=== PATIENT | female | born 1985 | race Caucasian/White ===

== ENCOUNTER 2023-10-02 17:31 | Emergency (ER) | payer MEDICAID, SELFPAY ==
[2023-10-02 17:33] VITALS: BP 154/98; PULSE 67; RESP 16; TEMP 37; O2SAT 97; BMI 32.3
--- NOTE | 2023-10-02 17:41 | W.ED.CHESTPA ---
Documented by User: Romero Masters DO 10/03/23 17:04 HPI - Chest Pain General: Chief Complaint: Chest Pain Stated Complaint: CHEST PAIN Time Seen by Provider: 10/02/23 17:40 Source: patient Mode of arrival: EMS History of Present Illness: 38-year-old female presents emergency room with complaint of chest pain has been going on for last 2 months. She denies any fever sweats chills denies productive cough no nausea vomiting diarrhea. She has some complaints of GI discomfort and reflux also has complaints of swelling which she states is on her entire right side. She previously had some bradycardia she was seen by primary care doctor in [facility] and they had changed some medications. MD complaint: chest pain Quality: shooting Associated symptoms: Deny abdominal pain, diaphoresis, dyspnea, fever(s), leg edema, nausea, palpitations, sense of impending doom, syncope, vomiting or other Review of Systems Const: Denies: fever(s), chills or diaphoresis Card: Denies: chest pain, palpitations or syncope Resp: Denies: dyspnea GI: Denies: abdominal pain, nausea or vomiting : Denies: dysuria, urinary frequency or urinary urgency Musc: Denies: neck pain or back pain Skin/Breast: Denies: rash Physical Exam Const: COMMON NORMALS: no acute distress GENERAL APPEARANCE: cooperative and comfortable ORIENTATION/CONSCIOUSNESS: Yes awake, Yes oriented to person, Yes oriented to place and Yes oriented to time HENMT: COMMON NORMALS: normocephalic, atraumatic and hearing grossly normal bilaterally HEAD & SCALP: normocephalic and atraumatic Resp: COMMON NORMALS: normal respiratory effort, No retractions, No use of accessory muscles and clear to auscultation bilaterally AUSCULTATION: clear to auscultation bilaterally Cardio: COMMON NORMALS: regular rate, regular rhythm and No murmurs present (Cardio) RATE: regular rate RHYTHM: regular rhythm GI: COMMON NORMALS: Soft to palpation and No hepatosplenomegaly present AUSCULTATION: Yes normoactive bowel sounds PALPATION: Yes Soft to palpation, No Tenderness to palpation present (GI), No Guarding due to palpation present (GI) and Yes No hepatosplenomegaly present Extremity: COMMON NORMALS: normal to inspection, capillary refill normal, no clubbing, cyanosis or edema, no calf tenderness and no pedal edema Neuro: SENSORIUM/ORIENTATION: Yes oriented to person, Yes oriented to place and Yes oriented to time Skin: COMMON NORMALS: no rashes or lesions noted GENERAL SKIN EXAM: no rashes or lesions noted Course Vital Signs: Vital signs: Vital Signs Temperature 98.6 F 10/02/23 17:33 Pulse Rate 65 10/02/23 21:09 Respiratory Rate 16 10/02/23 21:09 Blood Pressure 142/85 10/02/23 21:09 Pulse Oximetry 98 10/02/23 21:09 MDM - Chest Pain Medical Decision Making Care signed out to Dr. Mcgarry at change of shift. See final notes for diagnosis and disposition. 38-year-old female checked out to me at shift change by Dr. Zuniga. This lady has multiple complaints, including head injury from a fall, chest discomfort, right foot injury, and bradycardia. Heart rates on the monitor been 45-65. Her EKG shows sinus bradycardia with a rate of 45, normal axis, normal intervals, and no acute ST wave changes. Her chest x-ray is negative. Head CT and foot x-ray are also negative. CBC and BMP are normal. Troponin is nondetectable. This appears to be mainly symptomatic bradycardia. She will be ordered a Holter as an outpatient, refer to cardiology for follow-up. Lab Data 10/02/23 17:59 10/02/23 17:59 Radiology Impressions Chest X-Ray 10/02/23 17:51 IMPRESSION: No acute findings. Foot X-Ray 10/02/23 19:08 IMPRESSION: No acute osseous abnormalities. Head CT 10/02/23 19:08 IMPRESSION: No acute intracranial abnormality. Laboratory Results WBC 5.02 10^3/uL (3.29-11.43) 10/02/23 17:59 RBC 4.11 10^6/uL (3.85-5.65) 10/02/23 17:59 Hgb 12.90 g/dL (11.27-16.99) 10/02/23 17:59 Hct 38.1 % (36-47) 10/02/23 17:59 MCV 92.7 fl (85-98) 10/02/23 17:59 MCH 31.4 pg (27-33) 10/02/23 17:59 MCHC 33.9 g/dL (30-55) 10/02/23 17:59 RDW 11.6 % (12.1-15.1) L 10/02/23 17:59 Plt Count 206 10^3/cmm (157-399) 10/02/23 17:59 MPV 9.3 fL (7.4-10.4) 10/02/23 17:59 Neut % (Auto) 37.8 % 10/02/23 17:59 Lymph % (Auto) 50.0 % 10/02/23 17:59 Mccormick % (Auto) 7.2 % 10/02/23 17:59 Eos % (Auto) 3.6 % 10/02/23 17:59 Baso % (Auto) 1.2 % 10/02/23 17:59 Neut # (Auto) 1.90 10^3/uL (1.8-7.7) 10/02/23 17:59 Lymph # (Auto) 2.5 10^3/uL (0.8-4.8) 10/02/23 17:59 Mccormick # (Auto) 0.4 10^3/uL (0.2-0.9) 10/02/23 17:59 Eos # (Auto) 0.2 10^3/uL (0.0-0.8) 10/02/23 17:59 Baso # (Auto) 0.1 10^3/uL (0.0-0.1) 10/02/23 17:59 Nucleated RBC % (auto) 0 % 10/02/23 17:59 Nucleated RBCs # 0.0 /100WBC 10/02/23 17:59 Sodium 141 mmol/L (136-145) 10/02/23 17:59 Potassium 3.8 mmol/L (3.5-5.1) 10/02/23 17:59 Chloride 107 mmol/L (98-107) 10/02/23 17:59 Carbon Dioxide 22 mmol/L (22-29) 10/02/23 17:59 Anion Gap 15.8 (5-19) 10/02/23 17:59 BUN 9 mg/dL (6-20) 10/02/23 17:59 Creatinine 0.7 mg/dL (0.5-0.9) 10/02/23 17:59 GFR Calculation 94.2 mL/min (90-130) 10/02/23 17:59 Glucose 92 mg/dL (65-115) 10/02/23 17:59 Calculated Osmolality 290 mOsm/kg (285-295) 10/02/23 17:59 Calcium 9.4 mg/dL (8.5-10.5) 10/02/23 17:59 Total Bilirubin 0.2 mg/dL (0.15-1.2) 10/02/23 17:59 AST 19 U/L (0-32) 10/02/23 17:59 ALT 23 U/L (0-33) 10/02/23 17:59 Alkaline Phosphatase 71 U/L (35-105) 10/02/23 17:59 Troponin T Baseline < 6 ng/L (0-10) 10/02/23 17:59 Troponin T 120 Minute 6.34 ng/L (0-10) 10/02/23 20:55 Delta Troponin T 0.00483 ABS# (0-10) 10/02/23 20:55 Total Protein 6.4 g/dL (6.6-8.7) L 10/02/23 17:59 Albumin 4.1 g/dL (3.5-5.2) 10/02/23 17:59 Globulin 2.3 g/dL (1.3-4.6) 10/02/23 17:59 All radiology interpretation(s) finalized by discharge Discharge Plan Discharge Patient Disposition: Home Clinical Impression: Bradycardia, sinus Condition: Stable Discharge Orders: Discharge ED (Routine); Ordered 10/02/23 Ordered By: Pj Mcgarry Referrals: Jose Luis Phillips FNP [Primary Care Provider] - 1-3 days Fatuma Reyna MD [Physician] - 7-10 days Patient Instructions: Bradycardia (ED), Opioid Safety, Pain Management Activity Restrictions/Additional Instructions: Order has been placed as an outpatient for you to obtain a Holter monitor and wear it. You will get a call from case management regarding this. Referral is also been placed to cardiology for follow-up. See your doctor next week. Return for frequent episodes of syncope or passing out, worsening chest pain, other concerning symptoms. Coding Level of Care Code ED Embedded Software Architect for Chg Fwd Documented by User: Pj Mcgarry, DO 10/03/23 21:02 HPI - Chest Pain General: Chief Complaint: Chest Pain Stated Complaint: CHEST PAIN Time Seen by Provider: 10/02/23 17:40 Course Vital Signs: Vital signs: Vital Signs Temperature 98.6 F 10/02/23 17:33 Pulse Rate 65 10/02/23 21:09 Respiratory Rate 16 10/02/23 21:09 Blood Pressure 142/85 10/02/23 21:09 Pulse Oximetry 98 10/02/23 21:09 MDM - Chest Pain Medical Decision Making 38-year-old female checked out to me at shift change by Dr. Zuniga. This lady has multiple complaints, including head injury from a fall, chest discomfort, right foot injury, and bradycardia. Heart rates on the monitor been 45-65. Her EKG shows sinus bradycardia with a rate of 45, normal axis, normal intervals, and no acute ST wave changes. Her chest x-ray is negative. Head CT and foot x-ray are also negative. CBC and BMP are normal. Troponin is nondetectable. This appears to be mainly symptomatic bradycardia. She will be ordered a Holter as an outpatient, refer to cardiology for follow-up. Lab Data 10/02/23 17:59 10/02/23 17:59 Radiology Impressions Chest X-Ray 10/02/23 17:51 IMPRESSION: No acute findings. Foot X-Ray 10/02/23 19:08 IMPRESSION: No acute osseous abnormalities. Head CT 10/02/23 19:08 IMPRESSION: No acute intracranial abnormality. Laboratory Results WBC 5.02 10^3/uL (3.29-11.43) 10/02/23 17:59 RBC 4.11 10^6/uL (3.85-5.65) 10/02/23 17:59 Hgb 12.90 g/dL (11.27-16.99) 10/02/23 17:59 Hct 38.1 % (36-47) 10/02/23 17:59 MCV 92.7 fl (85-98) 10/02/23 17:59 MCH 31.4 pg (27-33) 10/02/23 17:59 MCHC 33.9 g/dL (30-55) 10/02/23 17:59 RDW 11.6 % (12.1-15.1) L 10/02/23 17:59 Plt Count 206 10^3/cmm (157-399) 10/02/23 17:59 MPV 9.3 fL (7.4-10.4) 10/02/23 17:59 Neut % (Auto) 37.8 % 10/02/23 17:59 Lymph % (Auto) 50.0 % 10/02/23 17:59 Mccormick % (Auto) 7.2 % 10/02/23 17:59 Eos % (Auto) 3.6 % 10/02/23 17:59 Baso % (Auto) 1.2 % 10/02/23 17:59 Neut # (Auto) 1.90 10^3/uL (1.8-7.7) 10/02/23 17:59 Lymph # (Auto) 2.5 10^3/uL (0.8-4.8) 10/02/23 17:59 Mccormick # (Auto) 0.4 10^3/uL (0.2-0.9) 10/02/23 17:59 Eos # (Auto) 0.2 10^3/uL (0.0-0.8) 10/02/23 17:59 Baso # (Auto) 0.1 10^3/uL (0.0-0.1) 10/02/23 17:59 Nucleated RBC % (auto) 0 % 10/02/23 17:59 Nucleated RBCs # 0.0 /100WBC 10/02/23 17:59 Sodium 141 mmol/L (136-145) 10/02/23 17:59 Potassium 3.8 mmol/L (3.5-5.1) 10/02/23 17:59 Chloride 107 mmol/L (98-107) 10/02/23 17:59 Carbon Dioxide 22 mmol/L (22-29) 10/02/23 17:59 Anion Gap 15.8 (5-19) 10/02/23 17:59 BUN 9 mg/dL (6-20) 10/02/23 17:59 Creatinine 0.7 mg/dL (0.5-0.9) 10/02/23 17:59 GFR Calculation 94.2 mL/min (90-130) 10/02/23 17:59 Glucose 92 mg/dL (65-115) 10/02/23 17:59 Calculated Osmolality 290 mOsm/kg (285-295) 10/02/23 17:59 Calcium 9.4 mg/dL (8.5-10.5) 10/02/23 17:59 Total Bilirubin 0.2 mg/dL (0.15-1.2) 10/02/23 17:59 AST 19 U/L (0-32) 10/02/23 17:59 ALT 23 U/L (0-33) 10/02/23 17:59 Alkaline Phosphatase 71 U/L (35-105) 10/02/23 17:59 Troponin T Baseline < 6 ng/L (0-10) 10/02/23 17:59 Troponin T 120 Minute 6.34 ng/L (0-10) 10/02/23 20:55 Delta Troponin T 0.27099 ABS# (0-10) 10/02/23 20:55 Total Protein 6.4 g/dL (6.6-8.7) L 10/02/23 17:59 Albumin 4.1 g/dL (3.5-5.2) 10/02/23 17:59 Globulin 2.3 g/dL (1.3-4.6) 10/02/23 17:59 Discharge Plan Discharge Patient Disposition: Home Clinical Impression: Bradycardia, sinus Condition: Stable Discharge Orders: Discharge ED (Routine); Ordered 10/02/23 Ordered By: Pj Mcgarry Referrals: Jose Luis Phillips FNP [Primary Care Provider] - 1-3 days Fatuma Reyna MD [Physician] - 7-10 days Patient Instructions: Bradycardia (ED), Opioid Safety, Pain Management Activity Restrictions/Additional Instructions: Order has been placed as an outpatient for you to obtain a Holter monitor and wear it. You will get a call from case management regarding this. Referral is also been placed to cardiology for follow-up. See your doctor next week. Return for frequent episodes of syncope or passing out, worsening chest pain, other concerning symptoms. Coding Level of Care Code ED Embedded Software Architect for Brittnee Bowman
--- NOTE | 2023-10-02 17:51 | XRR_ITS ---
PROCEDURE INFORMATION: Exam: XR Chest Exam date and time: 10/02/2023 6:10 PM Age: 38 years old Clinical indication: Dyspnea; Additional info: Dyspnea/cough TECHNIQUE: Imaging protocol: Radiologic exam of the chest. Views: 1 view. COMPARISON: No relevant prior studies available. FINDINGS: Lungs: Unremarkable. No consolidation. Pleural spaces: Unremarkable. No pleural effusion. No pneumothorax. Heart/Mediastinum: Unremarkable. No cardiomegaly. Bones/joints: Unremarkable. XR/XR chest 1V portable [id number] IMPRESSION: No acute findings.
--- NOTE | 2023-10-02 18:08 | ECG_ITS ---
[facility] Test Date: 2023-10-02 Pat Name: Sarah Dooley Department: Room: Gender: Female Strand Galvanizer: : 1985 Requested By: Romero Stafford Order Number: [id number] Anastacia MD: Gustavo Coto M.D. Measurements Intervals [place] Rate: 45 P: 37 NV: 129 QRS: 50 QRSD: 101 T: 20 QT: 443 QTc: 386 Interpretive Statements SINUS BRADYCARDIA NONSPECIFIC T-WAVE ABNORMALITY No previous ECG available for comparison Electronically Signed On 10-03-2023 8:35:26 SCIENCE TEACHER by Gustavo Coto M.D. [id number]
[2023-10-02 18:17] LABS: Basophils # 0.1 10^3/uL (0.0-0.1); Basophils % 1.2 %; Eosinophils # 0.2 10^3/uL (0.0-0.8); Eosinophils % 3.6 %; Hematocrit 38.1 % (36-47); Lymphocytes # 2.5 10^3/uL (0.8-4.8); Mean Corpuscular HGB Conc 33.9 g/dL (30-55); Mean Corpuscular Hemoglobin 31.4 pg (27-33); Mean Corpuscular Volume 92.7 fl (85-98); Mean Platelet Volume 9.3 fL (7.4-10.4); Monocytes # 0.4 10^3/uL (0.2-0.9); Monocytes % 7.2 %; Neutrophils % 37.8 %; Nucleated Red Blood Cells % 0 %; Platelet Count 206 10^3/cmm (157-399); Red Blood Count 4.11 10^6/uL (3.85-5.65); Red Cell Distribution Width 11.6 % (12.1-15.1); White Blood Count 5.02 10^3/uL (3.29-11.43)
[2023-10-02 18:41] LABS: Troponin(5th) Baseline < 6 ng/L (0-10)
[2023-10-02 18:55] LABS: Alanine Aminotransferase 23 U/L (0-33); Albumin Level 4.1 g/dL (3.5-5.2); Alkaline Phosphatase 71 U/L (35-105); Anion Gap 15.8 (5-19); Aspartate Amino Transferase 19 U/L (0-32); Blood Urea Nitrogen 9 mg/dL (6-20); Calcium 9.4 mg/dL (8.5-10.5); Carbon Dioxide 22 mmol/L (22-29); Chloride 107 mmol/L (98-107); Globulin 2.3 g/dL (1.3-4.6); Glomerular Filtration Rate 94.2 mL/min (90-130); Glucose 92 mg/dL (65-115); Osmolality Calculated 290 mOsm/kg (285-295); Potassium 3.8 mmol/L (3.5-5.1); Sodium 141 mmol/L (136-145); Total Bilirubin 0.2 mg/dL (0.15-1.2); Total Protein 6.4 g/dL (6.6-8.7)
--- NOTE | 2023-10-02 19:08 | CTR_ITS ---
PROCEDURE INFORMATION: Exam: CT Head Without Contrast Exam date and time: 10/02/2023 7:19 PM Age: 38 years old Clinical indication: Injury or trauma; Blunt trauma (contusions or hematomas); Patient HX: Fall with headstrike; Additional info: Fall head injury TECHNIQUE: Imaging protocol: Computed tomography of the head without contrast. Radiation optimization: All CT scans at this facility use at least one of these dose optimization techniques: automated exposure control; mA and/or kV adjustment per patient size (includes targeted exams where dose is matched to clinical indication); or iterative reconstruction. REPORTING DATA: Count of CT and Cardiac NM exams in prior 12 months: This patient has received 0 known CTs and 0 known cardiac nuclear medicine studies in the 12 months prior to the current study. COMPARISON: No relevant prior studies available. RADIATION DOSE METRICS: Total DLP (mGy-cm): 1014.68 FINDINGS: Brain: Normal. No hemorrhage. Unremarkable white matter. No mass effect. Cerebral ventricles: No ventriculomegaly. Paranasal sinuses: Visualized sinuses are unremarkable. No fluid levels. Mastoid air cells: Visualized mastoid air cells are well aerated. Bones/joints: Unremarkable. No acute fracture. Soft tissues: Unremarkable. CT/CT head wo con* [id number] IMPRESSION: No acute intracranial abnormality.
--- NOTE | 2023-10-02 19:08 | XRR_ITS ---
PROCEDURE INFORMATION: Exam: XR Right Foot Exam date and time: 10/02/2023 7:18 PM Age: 38 years old Clinical indication: Injury or trauma; Blunt trauma; Right; Patient HX: Fall. C/O foot pain. ; Additional info: Foot injury TECHNIQUE: Imaging protocol: Radiologic exam of the right foot. Views: 3 or more views. COMPARISON: No relevant prior studies available. FINDINGS: Bones/joints: Normal. Soft tissues: Soft tissue swelling along the lateral aspect of the forefoot/midfoot. No radiopaque foreign body. XR/XR foot RT min 3V* [id number] IMPRESSION: No acute osseous abnormalities.
[2023-10-02 21:05] VITALS: BP 142/85
[2023-10-02] MEDS: LORazepam 1 mg Tablet PO (21:05)
[2023-10-02] MEDS: cloNIDine 0.1 mg Tablet PO (21:05)
[2023-10-02 21:09] VITALS: BP 142/85; PULSE 65; RESP 16; O2SAT 98
[2023-10-02 21:41] LABS: Troponin 5 2HR 6.34 ng/L (0-10); Troponin 5 2HR Delta 0.34001 ABS# (0-10)
--- NOTE | 2023-10-04 08:13 | DCPLANNER ---
Message was sent to heart care services for referral on 10/04/23 at 0813. Clinic to contact patient.
== END 2023-10-02 21:11 | disposition home or self-care (01) ==
PROVIDERS: Family Medicine; Emergency Provider Emergency Medicine; PCP Nurse Practitioner Family
DX: R00.1 Bradycardia, unspecified (principal); M79.671 Pain in right foot; R51.9 Headache, unspecified; W19.XXXA Unspecified fall, initial encounter; R07.9 Chest pain, unspecified
CPT/HCPCS: 36415; 70450; 71045; 73630; 80053; 84484; 85025; 93005; 99285

== ENCOUNTER → 2023-11-01 15:25 | Outpatient (BNVA) | payer MEDICAID, SELFPAY | PROVIDERS: PCP Nurse Practitioner Family; Visit Provider Internal Medicine Cardiovascular Disease | DX: R07.9 Chest pain, unspecified (principal) | CPT/HCPCS: 36415; 80048; 83880; 93005 ==

== ENCOUNTER 2023-12-31 19:40 | Emergency (ER) | payer MEDICAID, SELFPAY ==
[2023-12-31 19:41] VITALS: BP 158/92; PULSE 87; RESP 22; TEMP 37.3; O2SAT 96; BMI 36.3
--- NOTE | 2023-12-31 19:41 | XRR_ITS ---
PROCEDURE INFORMATION: Exam: XR Chest Exam date and time: 12/31/2023 7:46 PM Age: 38 years old Clinical indication: Chest pressure; Patient HX: C/O chest pain; Additional info: Cp TECHNIQUE: Imaging protocol: Radiologic exam of the chest. Views: 1 view. COMPARISON: CR XR chest 1V portable [id number] 10/02/2023 6:10 PM FINDINGS: Lungs: Unremarkable. No consolidation. Pleural spaces: Unremarkable. No pleural effusion. No pneumothorax. Heart/Mediastinum: Unremarkable. No cardiomegaly. Bones/joints: Unremarkable. XR/XR chest 1V portable [id number] IMPRESSION: No acute findings.
--- NOTE | 2023-12-31 19:41 | ECG_ITS ---
[facility] Test Date: 2023-12-31 Pat Name: Sarah Dooley Department: Room: Gender: Female Eyeglass Frames Inspector: : 1985 Requested By: Catina Smith Order Number: [id number] Anastacia MD: Gustavo Coto M.D. Measurements Intervals [place] Rate: 86 P: 37 [place]: 149 QRS: 22 QRSD: 95 T: 2 QT: 358 QTc: 430 Interpretive Statements SINUS RHYTHM MODERATE T-WAVE ABNORMALITY, CONSIDER ANTERIOR ISCHEMIA [-0.1+ mV T-WAVE IN V3/V4] Compared to ECG 11/01/2023 15:32:17 Possible ischemia now present T-wave abnormality still present Electronically Signed On 01-01-2024 8:49:40 EPIC AMBULATORY ANALYSTS by Gustavo Coot M.D. [email or web address] [email or web address]/[email or web address]/[id number]
[2023-12-31 19:55] VITALS: BP 158/92; PULSE 113; RESP 16; O2SAT 95
--- NOTE | 2023-12-31 19:55 | ED_ITS ---
HPI - Chest Pain 2 General: Chief Complaint: Chest Pain Stated Complaint: chest discomfort Time Seen by Provider: 12/31/23 19:41 Source: patient and EMS Mode of arrival: EMS Limitations: no limitations History of Present Illness: 38-year-old female who states she had re cently moved down here from [place] to help take care of her mom states she has been under a lot of stress states that she has had intermittent chest pains she has for like she could not breathe at times she has seen cardiology here diagnosed with high blood pressure started losartan states she is scheduled to have an echo states that tonight roughly 3 to 4 hours ago she started having sharp pains in the center of her chest along with some dyspnea states she has had panic attacks states this does not really feel similar. She does admit again to being under a lot of stress Associated symptoms: Deny abdominal pain, dyspnea, fever(s), nausea or vomiting Review of Systems 2 Const: Denies: fever(s), chills, body aches or change in appetite ENMT: Denies: throat pain or dental pain Card: Reports: chest pain Resp: Denies: dyspnea GI: Denies: abdominal pain, nausea, vomiting or diarrhea Musc: Denies: neck pain or back pain Skin/Breast: Denies: rash Neuro: Denies: headache(s) Physical Exam 2 Const: COMMON NORMALS: no acute distress, patient oriented x3 and healthy appearing HENMT: COMMON NORMALS: normocephalic and atraumatic HEAD & SCALP: n ormocephalic and atraumatic Neck/C-Spine: COMMON NORMALS: full ROM and supple Chest: COMMONS NORMALS: normal inspection of the chest Resp: COMMON NORMALS: normal respiratory effort and clear to auscultation bilaterally AUSCULTATION: clear to auscultation bilaterally Cardio: COMMON NORMALS: regular rate, regular rhythm and No murmurs present (Cardio) RATE: regular rate RHYTHM: regular rhythm Extremity: COMMON NORMALS: normal to inspection and full ROM Neuro: COMMON NORMALS: patient oriented x3, moves all extremities and no focal motor deficits Psych: COMMON NORMALS: mental status grossly normal, Normal thought process present and cooperative THOUGHT PROCESS: Normal thought process present Skin: COMMON NORMALS: no rashes or lesions noted and no wounds GENERAL SKIN EXAM: no rashes or lesions noted Course 2 Vital Signs: Vital signs: Vital Signs Temperature 99.1 F 03/08/24 19:41 Pulse Rate 86 12/31/23 20:16 Respiratory Rate 15 12/31/23 20:16 Blood Pressure 122/87 12/31/23 20:16 Pulse Oximetry 95 12/31/23 20:16 Oxygen Delivery Me thod Room Air 12/31/23 20:16 MDM - Chest Pain Medical Decision Making Patient presents for chest pains atypical in nature patient's troponin EKG x-ray and D-dimer are all normal she is stable for discharge she is follow-up with PCP and return if worsening she understands agrees to plan. Medical Records I reviewed the patient's medical records. Lab Data I reviewed the patient's lab results. 12/31/23 20:15 12/31/23 20:15 Radiology Impressions Chest X-Ray 12/31/23 19:41 IMPRESSION: No acute findings. Laboratory Results WBC 8.20 10^3/uL (3.29-11.43) 12/31/23 20:15 RBC 4.73 10^6/uL (3.85-5.65) 12/31/23 20:15 Hgb 14.40 g/dL (11.27-16.99) 12/31/23 20:15 Hct 42.5 % (36-47) 12/31/23 20:15 MCV 89.9 fl (85-98) 12/31/23 20:15 MCH 30.4 pg (27-33) 12/31/23 20:15 MCHC 33.9 g/dL (30-55) 12/31/23 20:15 RDW 12.0 % (12.1-15.1) L 12/31/23 20:15 Plt Count 281 10^3/cmm (157-399) 12/31/23 20:15 MPV 8.8 fL (7.4-10.4) 12/31/23 20:15 Neut % (Auto) 61.8 % 12/31/23 20:15 Lymph % (Auto) 31.5 % 12/31/23 20:15 [place] % (Auto) 5.2 % 12/31/23 20:15 Eos % (Auto) 0.7 % 12/31/23 20:15 Baso % (Auto) 0.7 % 12/31/23 20:15 Neut # (Auto) 5.06 10^3/uL (1.8-7.7) 12/31/23 20:15 Lymph # (Auto) 2.6 10^3/uL (0.8-4.8) 12/31/23 20:15 [place] # (Auto) 0.4 10^3/uL (0.2-0.9) 12/31/23 20:15 Eos # (Auto) 0.1 10^3/uL (0.0-0.8) 12/31/23 20:15 Baso # (Auto) 0.1 10^3/uL (0.0-0.1) 12/31/23 20:15 Nucleated RBC % (auto) 0 % 12/31/23 20:15 Nucleated RBCs # 0.0 /100WBC 12/31/23 20:15 D-Dimer <= 0.27 ug/mLFEU (0-0.59) 12/31/23 20:15 Sodium 140 mmol/L (136-145) 12/31/23 20:15 Potassium 4.3 mmol/L (3.5-5.1) 12/31/23 20:15 Chloride 104 mmol/L (98-107) 12/31/23 20:15 Carbon Dioxide 26 mmol/L (22-29) 12/31/23 20:15 Anion Gap 14.3 (5-19) 12/31/23 20:15 BUN 11 mg/dL (6-20) 12/31/23 20:15 Creatinine 0.7 mg/dL (0.5-0.9) 12/31/23 20:15 GFR Calculation 94.2 mL/min (90-130) 12/31/23 20:15 Glucose 98 mg/dL (65-115) 12/31/23 20:15 Calculated Osmolality 289 mOsm/kg (285-295) 12/31/23 20:15 Calcium 9.4 mg/dL (8.5-10.5) 12/31/23 20:15 Total Bilirubin 0.5 mg/dL (0.15-1.2) 12/31/23 20:15 AST 19 U/L (0-32) 12/31/23 20:15 ALT 27 U/L (0-33) 12/31/23 20:15 Alkaline Phosphatase 72 U/L (35-105) 12/31/23 20:15 Troponin T Baseline < 6 ng/L (0-10) 12/31/23 20:15 Total Protein 7.5 g/dL (6.6-8.7) 12/31/23 20:15 Albumin 4.6 g/dL (3.5-5.2) 12/31/23 20:15 Globulin 2.9 g/dL (1.3-4.6) 12/31/23 20:15 HCG, Qual Negative (Negative) 12/31/23 20:15 All radiology interpretation(s) finalized by discharge EKG Data EKG 1: I personally reviewed and interpreted this EKG as follows: EKG interpretation date: 12/31/23 EKG interpretation time: 19:51 Interpretation: nsr hr [address] or t wave abnormalities qrs 95 qtc 402 Discharge Plan Discharge Patient Disposition: Home Clinical Impression: Chest pain Condition: Stable Prescriptions: No Action losartan 25 mg tablet 25 mg PO DAILY Qty: 30 3RF Discharge Orders: Discharge ED (Routine); Ordered 12/31/23 Ordered By: Catina Smith Referrals: Deven Saiin MD [Physician] - 1-3 days Jose Luis Phillips FNP [Primary Care Provider] - Discharge Diet: Advance as tolerated Discharge Activity: Resume usual activity Patient Instructions: Chest Pain (ED) Coding Level of Care Code ED Case Management Manager for Brittnee Bowman
[2023-12-31 20:16] VITALS: BP 122/87; PULSE 86; RESP 15; O2SAT 95
[2023-12-31 20:27] LABS: Basophils # 0.1 10^3/uL (0.0-0.1); Basophils % 0.7 %; Eosinophils # 0.1 10^3/uL (0.0-0.8); Eosinophils % 0.7 %; Hematocrit 42.5 % (36-47); Lymphocytes # 2.6 10^3/uL (0.8-4.8); Lymphocytes % 31.5 %; Mean Corpuscular HGB Conc 33.9 g/dL (30-55); Mean Corpuscular Hemoglobin 30.4 pg (27-33); Mean Corpuscular Volume 89.9 fl (85-98); Mean Platelet Volume 8.8 fL (7.4-10.4); Monocytes # 0.4 10^3/uL (0.2-0.9); Monocytes % 5.2 %; Neutrophils # 5.06 10^3/uL (1.8-7.7); Neutrophils % 61.8 %; Nucleated Red Blood Cells % 0 %; Platelet Count 281 10^3/cmm (157-399); Red Blood Count 4.73 10^6/uL (3.85-5.65)
[2023-12-31] MEDS: LORazepam 2 mg/mL INJ 10 mL MDV 1 MG IVP (20:36)
[2023-12-31 20:44] LABS: HCG, Serum Qual Negative (Negative)
[2023-12-31 20:46] LABS: D Dimer <= 0.27 ug/mLFEU (0-0.59)
[2023-12-31 20:53] LABS: Alanine Aminotransferase 27 U/L (0-33); Albumin Level 4.6 g/dL (3.5-5.2); Alkaline Phosphatase 72 U/L (35-105); Anion Gap 14.3 (5-19); Aspartate Amino Transferase 19 U/L (0-32); Blood Urea Nitrogen 11 mg/dL (6-20); Calcium 9.4 mg/dL (8.5-10.5); Carbon Dioxide 26 mmol/L (22-29); Chloride 104 mmol/L (98-107); Creatinine Clr Calc Pharmacy 132.7202; Globulin 2.9 g/dL (1.3-4.6); Glomerular Filtration Rate 94.2 mL/min (90-130); Glucose 98 mg/dL (65-115); Osmolality Calculated 289 mOsm/kg (285-295); Potassium 4.3 mmol/L (3.5-5.1); Sodium 140 mmol/L (136-145); Total Bilirubin 0.5 mg/dL (0.15-1.2); Total Protein 7.5 g/dL (6.6-8.7)
[2023-12-31 20:54] LABS: Troponin(5th) Baseline < 6 ng/L (0-10)
[2023-12-31 21:21] VITALS: BP 128/74; PULSE 87; RESP 17; O2SAT 96
[2023-12-31 21:38] VITALS: BP 128/74; PULSE 87; RESP 17; TEMP 37.3; O2SAT 96
== END 2023-12-31 21:48 | disposition home or self-care (01) ==
PROVIDERS: Emergency Provider Emergency Medicine; PCP Nurse Practitioner Family
DX: R07.9 Chest pain, unspecified (principal)
CPT/HCPCS: 36415; 71045; 80053; 84484; 84703; 85025; 85378; 93005; 96374; 99285; J2060

== ENCOUNTER 2024-01-29 20:28 | Emergency (ER) | payer MEDICAID, SELFPAY ==
[2024-01-29 20:32] VITALS: BP 167/114; PULSE 90; RESP 18; TEMP 36.7; O2SAT 95; BMI 37.1
[2024-01-29 20:52] LABS: Basophils # 0.1 10^3/uL (0.0-0.1); Basophils % 0.8 %; Eosinophils # 0.1 10^3/uL (0.0-0.8); Eosinophils % 1.1 %; Hematocrit 42.5 % (36-47); Lymphocytes % 35.5 %; Mean Corpuscular HGB Conc 34.4 g/dL (30-55); Mean Corpuscular Hemoglobin 30.3 pg (27-33); Mean Corpuscular Volume 88.2 fl (85-98); Mean Platelet Volume 8.6 fL (7.4-10.4); Monocytes # 0.5 10^3/uL (0.2-0.9); Monocytes % 6.1 %; Neutrophils # 4.64 10^3/uL (1.8-7.7); Nucleated Red Blood Cells % 0 %; Platelet Count 280 10^3/cmm (157-399); Red Blood Count 4.82 10^6/uL (3.85-5.65)
[2024-01-29 20:58] LABS: HCG Qualitative Urine. Negative (Negative)
[2024-01-29] MEDS: ketorolac 30 mg/mL INJ IVP (20:58)
[2024-01-29] MEDS: metoclopramide 5 mg/mL SDV 2 mL 10 MG IVP (20:59)
[2024-01-29] MEDS: diphenhydrAMINE 50 mg/mL SDV 1mL IVP (21:01)
[2024-01-29 21:02] VITALS: BP 145/82; PULSE 73; RESP 18; O2SAT 95
[2024-01-29 21:10] LABS: Add Urine Microscopic? YES; Bilirubin Urine Neg (Negative); Blood Urine 2+ (Negative); Glucose Urine UA Norm (Normal); Ketones Urine Negative (Negative); Leukocyte Esterase Urine Negative (Negative); Nitrate Urine Negative (Negative); Protein Urine Neg (Negative); Urine Appearance Clear (CLEAR); Urine Color Yellow (Yellow); Urobilinogen Urine Neg (Negative); pH Urine 5 (5-7)
[2024-01-29 21:11] LABS: Amorphous Sediment Urine TRACE /hpf; Bacteria Urine TRACE /hpf; Mucus Urine 1+ /hpf; RBC Urine 0-4 /hpf (0-2); WBC Urine 0-4 /hpf (0-5)
--- NOTE | 2024-01-29 21:16 | CTR_ITS ---
PROCEDURE INFORMATION: Exam: CT Abdomen And Pelvis With Contrast Exam date and time: 01/29/2024 9:42 PM Age: 38 years old Clinical indication: Abdominal pain; Localized; Right; Prior surgery; Surgery date: 6+ months; Surgery type: Gb. Appy; Patient HX: C/O RT sided abd pain; Additional info: Flank and low abd pain TECHNIQUE: Imaging protocol: Computed tomography of the abdomen and pelvis with contrast. Radiation optimization: All CT scans at this facility use at least one of these dose optimization techniques: automated exposure control; mA and/or kV adjustment per patient size (includes targeted exams where dose is matched to clinical indication); or iterative reconstruction. Contrast material: OMNI 350; Contrast volume: 100 ml; Contrast route: INTRAVENOUS (IV); COMPARISON: CR (CHEST, ) 12/31/2023 7:46 PM RADIATION DOSE METRICS: Total DLP (mGy-cm): 1066.46 FINDINGS: Lungs: The lung bases are clear. Heart: Heart size is within normal limits. There is no pericardial effusion or pericardial thickening. Liver: The liver is normal. No hepatic masses are identified. Gallbladder and bile ducts: The gallbladder is surgically absent. There is no ductal dilatation. Pancreas: The pancreas is normal. Spleen: The spleen is normal. Adrenal glands: The adrenal glands are normal. Kidneys and ureters: There are bilateral subcentimeter renal low-density lesions which are too small for accurate characterization, likely representing simple cysts. There is normal enhancement of the kidneys. No renal calcifications are identified. There is no hydronephrosis. Stomach and bowel: There is no large or small bowel obstruction. There is no evidence of bowel wall thickening. Single cecal diverticulum without evidence of diverticulitis. Appendix: A normal appendix is not identified. There is no secondary evidence of acute appendicitis. Intraperitoneal space: Nonspecific 10 mm omental nodule just inferior to the liver. No inflammatory changes are identified. There is no free fluid or fluid collection seen. There is no pneumoperitoneum. Vasculature: The aorta is normal in course and caliber. No significant atherosclerotic calcifications are present. Lymph nodes: There are no enlarged retroperitoneal or mesenteric lymph nodes. Urinary bladder: The bladder is unremarkable. Reproductive: The uterus is present. Bones/joints: No acute osseous abnormalities are seen. Soft tissues: Small periumbilical hernia containing only fat. The soft tissues are otherwise within normal limits. CT/CT abdomen pelvis w con* [id number] IMPRESSION: 1. No acute intra-abdominal or pelvic process. 2. Nonspecific 10 mm omental nodule just inferior to the liver, possibly prominent lymph node. Follow-up as indicated. 3. Other nonemergent findings above. COMMENTS: Consistent with the [employer]'s Incidental Findings Committee white paper (J Am Clint Radiol 2018): Any incidental renal lesion less than 1 cm or classified as too small to characterize, or any incidental cystic renal lesion characterized as simple-appearing, is likely benign. No follow-up imaging is recommended for these lesions per consensus recommendations based on imaging criteria.
[2024-01-29 21:23] LABS: Alanine Aminotransferase 47 U/L (0-33); Albumin Level 4.7 g/dL (3.5-5.2); Alkaline Phosphatase 80 U/L (35-105); Anion Gap 15.9 (5-19); Aspartate Amino Transferase 35 U/L (0-32); Blood Urea Nitrogen 8 mg/dL (6-20); Calcium 9.7 mg/dL (8.5-10.5); Carbon Dioxide 25 mmol/L (22-29); Chloride 102 mmol/L (98-107); Creatinine Clr Calc Pharmacy 134.2961; Glomerular Filtration Rate 94.2 mL/min (90-130); Glucose 98 mg/dL (65-115); NT Pro B Type Natriuretic Pept < 36 pg/mL (0-125); Osmolality Calculated 286 mOsm/kg (285-295); Potassium 3.9 mmol/L (3.5-5.1); Sodium 139 mmol/L (136-145); Total Bilirubin 0.3 mg/dL (0.15-1.2); Total Protein 7.7 g/dL (6.6-8.7)
[2024-01-29] MEDS: iohexol 350 mg/mL 500 mL Btl (per mL) IV (21:41)
--- NOTE | 2024-01-29 22:34 | W.ED.HA ---
HPI - Headache General: Chief Complaint: Headache Stated Complaint: HEADACHE Time Seen by Provider: 01/29/24 20:34 History of Present Illness: 38-year-old female presents emerged part with complaints of a 9 out of 10 migraine headache that is very similar to her previous migraines. She states that the pain is a throbbing pressure type headache to the left front and left side of her head. She states she is also had multiple episodes of nausea and vomiting as well as intermittent diarrhea and lower abdominal cramping for the previous 2 days. She denies neck pain or stiffness. She does state that loud noise and bright lights make her headache worse. She does endorse recent sick contacts. She states she is also not been eating or drinking very much due to her headache and nausea and vomiting. She states she is also concerned that she may have a urinary tract infection as she has had decreased urinary output. Associated symptoms: Reports nausea and vomiting Review of Systems General: Reports: 10 or more systems reviewed and unremarkable except in HPI and below GI: Reports: abdominal pain, nausea and vomiting Neuro: Reports: headache(s) [facility] Female Reproductive History: Date of last menstrual period: 01/24/24 Physical Exam Narrative: EXAM NARRATIVE: Constitutional: the patient appears well nourished and with normal development. Vital signs reviewed as documented. HENMT: Normocephalic, atraumatic. External ears normal appearance without drainage. Nose without drainage, normal appearance. Mucus membranes moist. Neck is supple, No jugular venous distension, trachea is midline, no appreciable carotid bruits. No lymphadenopathy. No meningeal signs. Flexion, extension and lateral rotation is without pain. Eyes: Pupils are equal, round, reactive to light and accommodation. No scleral icterus. Extra-ocular movement are intact. Thorax is symmetrical and with equal rise and fall with respirations. Resp: Lungs are clear to auscultation. No wheezes, rales, crackles or ronchi at present. Cardio: Regular rate and rhythm. Positive S1, S2. No appreciable murmurs, rubs or gallops. GI: Abdominal exam reveals normal bowel sounds to all quadrants. No organomegaly. No obvious palpable masses noted. No hepatomegally appreciated. Soft, non-tender to palpation. Extremity: Extremities are non-edematous and both femoral and pedal pulses are 2+ and equal bilaterally. Moves all extremities well, sensation in all extremities. Neuro: Alert and oriented x4, person, place, time and situation. Cranial nerves II through XII are grossly intact, there is no focal neurological deficits that I can appreciate at present. Sensation intact to all extremities. 2-point discrimination intact. Light touch intact to all extremities. Motor strength in the upper and lower extremities are equal and bilateral 5/5. Psych: Cooperative, calm, normal thought process, appropriate judgment. Skin: No lesions, rashes. No gross abnormalities noted. Back: Symmetrical, no obvious deformity, No CVA tenderness Course Vital Signs: Vital signs: Vital Signs Temperature 98.0 F 01/29/24 20:32 Pulse Rate 73 01/29/24 21:02 Respiratory Rate 18 01/29/24 21:02 Blood Pressure 145/82 01/29/24 21:02 Pulse Oximetry 95 01/29/24 21:02 Oxygen Delivery Me thod Room Air 01/29/24 21:02 MDM - Headache Medical Decision Making Physical exam completed and documented I did obtain a CT abdomen pelvis to evaluate the patient's lower abdominal pain. She was also provided IV medications to abort her migraine headache and reevaluation patient states she feels much better. She has had no additional episodes of nausea or vomiting and her photosensitivity has improved significantly. I will discharge the patient and recommend follow-up with her primary care physician as needed. Medical Records I reviewed the patient's medical records. Lab Data I reviewed the patient's lab results. 01/29/24 20:46 01/29/24 20:46 Radiology Impressions Abdomen/Pelvis CT 01/29/24 21:16 IMPRESSION: 1. No acute intra-abdominal or pelvic process. 2. Nonspecific 10 mm omental nodule just inferior to the liver, possibly prominent lymph node. Follow-up as indicated. 3. Other nonemergent findings above. COMMENTS: Consistent with the [place] [employer]'s Incidental Findings Committee white paper (J Am Clint Radiol 2018): Any incidental renal lesion less than 1 cm or classified as too small to characterize, or any incidental cystic renal lesion characterized as simple-appearing, is likely benign. No follow-up imaging is recommended for these lesions per consensus recommendations based on imaging criteria. Laboratory Results WBC 8.30 10^3/uL (3.29-11.43) 01/29/24 20:46 RBC 4.82 10^6/uL (3.85-5.65) 01/29/24 20:46 Hgb 14.60 g/dL (11.27-16.99) 01/29/24 20:46 Hct 42.5 % (36-47) 01/29/24 20:46 MCV 88.2 fl (85-98) 01/29/24 20:46 MCH 30.3 pg (27-33) 01/29/24 20:46 MCHC 34.4 g/dL (30-55) 01/29/24 20:46 RDW 12.0 % (12.1-15.1) L 01/29/24 20:46 Plt Count 280 10^3/cmm (157-399) 01/29/24 20:46 MPV 8.6 fL (7.4-10.4) 01/29/24 20:46 Neut % (Auto) 56.0 % 01/29/24 20:46 Lymph % (Auto) 35.5 % 01/29/24 20:46 [place] % (Auto) 6.1 % 01/29/24 20:46 Eos % (Auto) 1.1 % 01/29/24 20:46 Baso % (Auto) 0.8 % 01/29/24 20:46 Neut # (Auto) 4.64 10^3/uL (1.8-7.7) 01/29/24 20:46 Lymph # (Auto) 3.0 10^3/uL (0.8-4.8) 01/29/24 20:46 [place] # (Auto) 0.5 10^3/uL (0.2-0.9) 01/29/24 20:46 Eos # (Auto) 0.1 10^3/uL (0.0-0.8) 01/29/24 20:46 Baso # (Auto) 0.1 10^3/uL (0.0-0.1) 01/29/24 20:46 Nucleated RBC % (auto) 0 % 01/29/24 20:46 Nucleated RBCs # 0.0 /100WBC 01/29/24 20:46 Sodium 139 mmol/L (136-145) 01/29/24 20:46 Potassium 3.9 mmol/L (3.5-5.1) 01/29/24 20:46 Chloride 102 mmol/L (98-107) 01/29/24 20:46 Carbon Dioxide 25 mmol/L (22-29) 01/29/24 20:46 Anion Gap 15.9 (5-19) 01/29/24 20:46 BUN 8 mg/dL (6-20) 01/29/24 20:46 Creatinine 0.7 mg/dL (0.5-0.9) 01/29/24 20:46 GFR Calculation 94.2 mL/min (90-130) 01/29/24 20:46 Glucose 98 mg/dL (65-115) 01/29/24 20:46 Calculated Osmolality 286 mOsm/kg (285-295) 01/29/24 20:46 Calcium 9.7 mg/dL (8.5-10.5) 01/29/24 20:46 Total Bilirubin 0.3 mg/dL (0.15-1.2) 01/29/24 20:46 AST 35 U/L (0-32) H 01/29/24 20:46 ALT 47 U/L (0-33) H 01/29/24 20:46 Alkaline Phosphatase 80 U/L (35-105) 01/29/24 20:46 NT-Pro-B Natriuret Pep < 36 pg/mL (0-125) 01/29/24 20:46 Total Protein 7.7 g/dL (6.6-8.7) 01/29/24 20:46 Albumin 4.7 g/dL (3.5-5.2) 01/29/24 20:46 Globulin 3.0 g/dL (1.3-4.6) 01/29/24 20:46 HCG, Qual Negative (Negative) 01/29/24 20:40 Urine Color Yellow (Yellow) 01/29/24 20:40 Urine Appearance Clear (CLEAR) 01/29/24 20:40 Urine pH 5 (5-7) 01/29/24 20:40 Ur Specific [place] 1.020 (1.005-1.030) 01/29/24 20:40 Urine Protein Neg (Negative) 01/29/24 20:40 Urine Glucose (UA) Norm (Normal) 01/29/24 20:40 Urine Ketones Negative (Negative) 01/29/24 20:40 Urine Blood 2+ (Negative) H 01/29/24 20:40 Urine Nitrate Negative (Negative) 01/29/24 20:40 Urine Bilirubin Neg (Negative) 01/29/24 20:40 Urine Urobilinogen Neg mg/dL (Negative) 01/29/24 20:40 Ur Leukocyte Esterase Negative (Negative) 01/29/24 20:40 Urine RBC 0-4 /hpf (0-2) H 01/29/24 20:40 Urine WBC 0-4 /hpf (0-5) H 01/29/24 20:40 Ur Squamous Epith Cells 5-10 /hpf (0-5) H 01/29/24 20:40 Amorphous Sediment Trace /hpf 01/29/24 20:40 Urine Bacteria Trace /hpf (NONE) 01/29/24 20:40 Urine Mucus 1+ /hpf 01/29/24 20:40 All radiology interpretation(s) finalized by discharge Discharge Plan Discharge Patient Disposition: Home Clinical Impression: Gastroenteritis Headache, migraine Qualifiers: Migraine type: unspecified Status migrainosus presence: without status migrainosus Intractability: not intractable Qualified Code(s): G43.909 - Migraine, unspecified, not intractable, without status migrainosus Abdominal pain Qualifiers: Abdominal location: lower abdomen, unspecified Qualified Code(s): R10.30 - Lower abdominal pain, unspecified Condition: Stable Prescriptions: New ondansetron HCl 4 mg tablet 4 mg PO Q6H PRN (Reason: nausea and vomiting) Qty: 14 0RF No Action losartan 25 mg tablet 25 mg PO DAILY Qty: 30 3RF Discharge Orders: Discharge ED (Routine); Ordered 01/29/24 Ordered By: Bishop Clement Referrals: Jose Luis Phillips FNP [Primary Care Provider] - Patient Instructions: Abdominal Pain (ED), Opioid Safety, Pain Management Coding Level of Care Code ED Press Operator Helper for Brittnee Bowman
[2024-01-29 22:56] VITALS: BP 124/98; PULSE 86; RESP 16; O2SAT 97
== END 2024-01-29 22:57 | disposition home or self-care (01) ==
PROVIDERS: Emergency Provider Internal Medicine; PCP Nurse Practitioner Family
DX: K52.9 Noninfective gastroenteritis and colitis, unspecified (principal); G43.909 Migraine, unspecified, not intractable, without status migrainosus; R10.30 Lower abdominal pain, unspecified
CPT/HCPCS: 74177; 80053; 81001; 81025; 83880; 85025; 96374; 96375; 99285; J1200; J1885; J2765; Q9967

== ENCOUNTER 2024-03-17 17:53 | Emergency (ER) | payer MEDICAID, SELFPAY ==
[2024-03-17 17:57] VITALS: BP 169/89; PULSE 96; RESP 18; TEMP 36.9; O2SAT 96
--- NOTE | 2024-03-17 18:50 | ED_ITS ---
Documented by User: BYRON Melendez 03/17/24 20:07 HPI - Headache 2 General: Chief Complaint: Headache Stated Complaint: side pains, n/v, migraine, diarrhea Time Seen by Provider: 03/17/24 18:40 Source: patient Mode of arrival: ambulatory Limitations: no limitations History of Present Illness: Patient is a 38-year-old female who presents to the emergency department complaining of headache and urinary symptoms for the past few days. She does note a history of kidney stones and states this feels somewhat similar, as she is having back pain and some dysuria. She is also noting she has been nauseous, and has had a migraine headache that she has not been able to break. She denies any blood in her urine, stating she just recently got off her menstrual cycle. She denies running any fevers or having any chills. She denies taking anything for her symptoms. The pain in her back is noted to be over my kidneys. MD elicited complaint: migraine Pertinent past history: migraines Onset (ago): day(s) Onset description: suddenly Location: diffuse Severity: moderate Exacerbating factors: none Relieving factors: nothing Associated symptoms: Reports nausea; Deny chest pain, diaphoresis, fever(s), lightheadedness, rash or vomiting Review of Systems 2 General: Reports: 10 or more systems reviewed and unremarkable except in HPI and below Const: Denies: fever(s), chills, change in appetite, change in weight or diaphoresis ENMT: Denies: throat pain or hoarseness Card: Denies: chest pain, palpitations or lightheadedness Resp: Denies: dyspnea, productive cough or wheezing GI: Reports: nausea; Denies: abdominal pain, vomiting, diarrhea, constipation, bloating, change in stool character or hematochezia : Reports: dysuria; Denies: flank pain, difficulty voiding, urinary frequency or urinary urgency Musc: Reports: back pain; Denies: neck pain Skin/Breast: Denies: rash or new lesions Neuro: Reports: headache(s); Denies: dizziness Physical Exam 2 Const: COMMON NORMALS: no acute distress, average body habitus, patient oriented x3, no limitations, healthy appearing, alert and well nourished G ENERAL APPEARANCE: cooperative and comfortable ORIENTATION/CONSCIOUSNESS: Yes awake HENMT: COMMON NORMALS: normocephalic, atraumatic, hearing grossly normal bilaterally, external ears normal, Normal external nose present, Normal nasal mucous membranes and turbinates present and moist oral mucous membranes HEAD & SCALP: normocephalic and atraumatic NOSE: Normal external nose present and Normal nasal mucous membranes and turbinates present EXTERNAL EAR: Yes external ears normal Eye: COMMON NORMALS: Equal, round and reactive pupils present, EOMs intact bilaterally, conjunctivae normal and normal visual card by confrontation C ONJUNCTIVA: Yes conjunctivae normal PUPIL: Yes Equal, round and reactive pupils present Neck/C-Spine: COMMON NORMALS: full ROM, supple, no meningeal signs and no JVD Resp: COMMON NORMALS: normal respiratory effort, No retractions, No use of accessory muscles and clear to auscultation bilaterally AUSCULTATION: clear to auscultation bilaterally, no crackles, no rales, no rhonchi and no wheezes Cardio: COMMON NORMALS: no JVD, regular rate, regular rhythm, S1 normal heart sound present, S2 normal heart sound present, No gallops present (Cardio), No clicks present (Cardio), No murmurs present (Cardio), No rub (Cardio) and Peripheral pulses 2+ throughout RATE: regular rate RHYTHM: regular rhythm HEART SOUNDS: S1 normal heart sound present and S2 normal heart sound present PERIPHERAL PULSES: Peripheral pulses 2+ throughout GI: COMMON NORMALS: Normal to inspection, nondistended, normoactive bowel sounds present, Soft to palpation, non-tender, No hepatosplenomegaly present and no masses AUSCULTATION: Yes normoactive bowel sounds PALPATION: Yes Soft to palpation, No Guarding due to palpation present (GI), No Rigid due to palpation and Yes No hepatosplenomegaly present RECTAL EXAM: deferred : BLADDER/KIDNEY EXAM: Yes CVA tenderness Back/Pelvis: GENERAL BACK: Yes CVA tenderness CVA tenderness: bilateral Extremity: COMMON NORMALS: normal to inspection and full ROM Neuro: COMMON NORMALS: patient oriented x3, moves all extremities, no focal motor deficits and no sensory deficits noted SENSORIUM/ORIENTATION: Yes alert MENINGEAL SIGNS: Yes no meningeal signs Psych: COMMON NORMALS: mental status grossly normal, cooperative and speech normal SPEECH: Yes normal speech Skin: COMMON NORMALS: no rashes or lesions noted GENERAL SKIN EXAM: no rashes or lesions noted Course 2 Vital Signs: Vital signs: Vital Signs Temperature 98.5 F 03/17/24 17:57 Pulse Rate 69 03/17/24 21:01 Respiratory Rate 16 03/17/24 19:38 Blood Pressure 169/89 03/17/24 17:57 Pulse Oximetry 97 03/17/24 21:01 Oxygen Delivery Me thod Room Air, Nasal C annula 03/17/24 19:38 MDM - Headache Medical Decision Making Patient presented for evaluation of migraine headache and unrelated back pain that patient believes was kidney stone. History of kidney stones, also noted some urinary symptoms. UA did reveal signs of some blood, though no urinary tract infection. Did obtain a CT without contrast because of this, that did not demonstrate any signs of kidney stone or other acute processes. Her CBC and CMP unremarkable. I did start her on a migraine cocktail, and upon recheck states that her headache was much better as well as her back pain. Do believe her back pain is musculoskeletal in nature, and told her to follow-up with primary care next week. Return precautions were given. Patient agrees with plan. Lab Data I reviewed the patient's lab results. 03/17/24 19:23 03/17/24 19:23 Radiology Impressions Abdomen/Pelvis CT 03/17/24 19:14 IMPRESSION: No acute findingsNon acute findings as described above. Laboratory Results WBC 8.39 10^3/uL (3.29-11.43) 03/17/24 19:23 RBC 4.38 10^6/uL (3.85-5.65) 03/17/24 19:23 Hgb 13.50 g/dL (11.27-16.99) 03/17/24 19:23 Hct 38.8 % (36-47) 03/17/24 19:23 MCV 88.6 fl (85-98) 03/17/24 19:23 MCH 30.8 pg (27-33) 03/17/24 19:23 MCHC 34.8 g/dL (30-55) 03/17/24 19:23 RDW 11.9 % (12.1-15.1) L 03/17/24 19:23 Plt Count 272 10^3/cmm (157-399) 03/17/24 19:23 MPV 9.3 fL (7.4-10.4) 03/17/24 19:23 Neut % (Auto) 60.6 % 03/17/24 19:23 Lymph % (Auto) 31.6 % 03/17/24 19:23 [place] % (Auto) 6.3 % 03/17/24 19:23 Eos % (Auto) 0.6 % 03/17/24 19:23 Baso % (Auto) 0.7 % 03/17/24 19:23 Neut # (Auto) 5.08 10^3/uL (1.8-7.7) 03/17/24 19:23 Lymph # (Auto) 2.7 10^3/uL (0.8-4.8) 03/17/24 19:23 [place] # (Auto) 0.5 10^3/uL (0.2-0.9) 03/17/24 19:23 Eos # (Auto) 0.1 10^3/uL (0.0-0.8) 03/17/24 19:23 Baso # (Auto) 0.1 10^3/uL (0.0-0.1) 03/17/24 19:23 Nucleated RBC % (auto) 0 % 03/17/24 19:23 Nucleated RBCs # 0.0 /100WBC 03/17/24 19:23 Sodium 138 mmol/L (136-145) 03/17/24 19:23 Potassium 3.7 mmol/L (3.5-5.1) 03/17/24 19:23 Chloride 103 mmol/L (98-107) 03/17/24 19:23 Carbon Dioxide 24 mmol/L (22-29) 03/17/24 19:23 Anion Gap 14.7 (5-19) 03/17/24 19:23 BUN 9 mg/dL (6-20) 03/17/24 19:23 Creatinine 0.6 mg/dL (0.5-0.9) 03/17/24 19:23 GFR Calculation 112.5 mL/min (90-130) 03/17/24 19:23 Glucose 120 mg/dL (65-115) H 03/17/24 19:23 Calculated Osmolality 286 mOsm/kg (285-295) 03/17/24 19:23 Calcium 9.3 mg/dL (8.5-10.5) 03/17/24 19:23 Total Bilirubin 0.5 mg/dL (0.15-1.2) 03/17/24 19:23 AST 25 U/L (0-32) 03/17/24 19:23 ALT 31 U/L (0-33) 03/17/24 19:23 Alkaline Phosphatase 74 U/L (35-105) 03/17/24 19:23 Total Protein 8.0 g/dL (6.6-8.7) 03/17/24 19:23 Albumin 4.8 g/dL (3.5-5.2) 03/17/24 19:23 Globulin 3.2 g/dL (1.3-4.6) 03/17/24 19:23 Urine Color Yellow (Yellow) 03/17/24 18:40 Urine Appearance Clear (CLEAR) 03/17/24 18:40 Urine pH 6 (5-7) 03/17/24 18:40 Ur Specific [place] 1.020 (1.005-1.030) 03/17/24 18:40 Urine Protein Trace (Negative) 03/17/24 18:40 Urine Glucose (UA) Norm (Normal) 03/17/24 18:40 Urine Ketones 1+ (Negative) H 03/17/24 18:40 Urine Blood 2+ (Negative) H 03/17/24 18:40 Urine Nitrate Negative (Negative) 03/17/24 18:40 Urine Bilirubin Neg (Negative) 03/17/24 18:40 Urine Urobilinogen 1 mg/dL (Negative) H 03/17/24 18:40 Ur Leukocyte Esterase Negative (Negative) 03/17/24 18:40 Urine RBC 5-10 /hpf (0-2) H 03/17/24 18:40 Urine WBC 0-4 /hpf (0-5) H 03/17/24 18:40 Ur Squamous Epith Cells 0-4 /hpf (0-5) H 03/17/24 18:40 Amorphous Sediment Not Reportable 03/17/24 18:40 Urine Bacteria Trace /hpf (NONE) 03/17/24 18:40 Urine Mucus Trace /hpf 03/17/24 18:40 All radiology interpretation(s) finalized by discharge Discharge Plan Discharge Patient Disposition: Home Clinical Impression: Migraine, Musculoskeletal back pain Condition: Stable Prescriptions: No Action losartan 25 mg tablet 25 mg PO DAILY Qty: 90 3RF ondansetron HCl 4 mg tablet 4 mg PO Q6H PRN (Reason: nausea and vomiting) Qty: 14 0RF Discharge Orders: Discharge ED (Routine); Ordered 03/17/24 Ordered By: Silvestre Del Castillo Discharge Diet: Usual diet Discharge Activity: Increase activity as tolerated Patient Instructions: Migraine Headache (ED), Back Pain (ED), Core Strengthening Exercises (ED) Activity Restrictions/Additional Instructions: Tylenol for pain as needed. Gentle range of motion exercises as tolerated. Avoid any potential migraine triggers. Plenty of fluids. Return with any new or worsening. Follow-up with primary care next week. Coding Level of Care Code ED Policy Change Clerk for Chg Fwd Documented by User: Romero Masters DO 03/26/24 16:32 HPI - Headache 2 General: Chief Complaint: Headache Stated Complaint: side pains, n/v, migraine, diarrhea Time Seen by Provider: 03/17/24 18:40 Course 2 Vital Signs: Vital signs: Vital Signs Temperature 98.5 F 03/17/24 17:57 Pulse Rate 69 03/17/24 21:01 Respiratory Rate 16 03/17/24 19:38 Blood Pressure 169/89 03/17/24 17:57 Pulse Oximetry 97 03/17/24 21:01 Oxygen Delivery Me thod Room Air, Nasal C annula 03/17/24 19:38 MDM - Headache Medical Decision Making Patient presented for evaluation of migraine headache and unrelated back pain that patient believes was kidney stone. History of kidney stones, also noted some urinary symptoms. UA did reveal signs of some blood, though no urinary tract infection. Did obtain a CT without contrast because of this, that did not demonstrate any signs of kidney stone or other acute processes. Her CBC and CMP unremarkable. I did start her on a migraine cocktail, and upon recheck states that her headache was much better as well as her back pain. Do believe her back pain is musculoskeletal in nature, and told her to follow-up with primary care next week. Return precautions were given. Patient agrees with plan. Chart reviewed Lab Data 03/17/24 19:23 03/17/24 19:23 Radiology Impressions Abdomen/Pelvis CT 03/17/24 19:14 IMPRESSION: No acute findingsNon acute findings as described above. Laboratory Results WBC 8.39 10^3/uL (3.29-11.43) 03/17/24 19:23 RBC 4.38 10^6/uL (3.85-5.65) 03/17/24 19:23 Hgb 13.50 g/dL (11.27-16.99) 03/17/24 19:23 Hct 38.8 % (36-47) 03/17/24 19:23 MCV 88.6 fl (85-98) 03/17/24 19:23 MCH 30.8 pg (27-33) 03/17/24 19:23 MCHC 34.8 g/dL (30-55) 03/17/24 19:23 RDW 11.9 % (12.1-15.1) L 03/17/24 19:23 Plt Count 272 10^3/cmm (157-399) 03/17/24 19:23 MPV 9.3 fL (7.4-10.4) 03/17/24 19:23 Neut % (Auto) 60.6 % 03/17/24 19:23 Lymph % (Auto) 31.6 % 03/17/24 19:23 [place] % (Auto) 6.3 % 03/17/24 19:23 Eos % (Auto) 0.6 % 03/17/24 19:23 Baso % (Auto) 0.7 % 03/17/24 19:23 Neut # (Auto) 5.08 10^3/uL (1.8-7.7) 03/17/24 19:23 Lymph # (Auto) 2.7 10^3/uL (0.8-4.8) 03/17/24 19:23 [place] # (Auto) 0.5 10^3/uL (0.2-0.9) 03/17/24 19:23 Eos # (Auto) 0.1 10^3/uL (0.0-0.8) 03/17/24 19:23 Baso # (Auto) 0.1 10^3/uL (0.0-0.1) 03/17/24 19:23 Nucleated RBC % (auto) 0 % 03/17/24 19:23 Nucleated RBCs # 0.0 /100WBC 03/17/24 19:23 Sodium 138 mmol/L (136-145) 03/17/24 19:23 Potassium 3.7 mmol/L (3.5-5.1) 03/17/24 19:23 Chloride 103 mmol/L (98-107) 03/17/24 19:23 Carbon Dioxide 24 mmol/L (22-29) 03/17/24 19:23 Anion Gap 14.7 (5-19) 03/17/24 19:23 BUN 9 mg/dL (6-20) 03/17/24 19:23 Creatinine 0.6 mg/dL (0.5-0.9) 03/17/24 19:23 GFR Calculation 112.5 mL/min (90-130) 03/17/24 19:23 Glucose 120 mg/dL (65-115) H 03/17/24 19:23 Calculated Osmolality 286 mOsm/kg (285-295) 03/17/24 19:23 Calcium 9.3 mg/dL (8.5-10.5) 03/17/24 19:23 Total Bilirubin 0.5 mg/dL (0.15-1.2) 03/17/24 19:23 AST 25 U/L (0-32) 03/17/24 19:23 ALT 31 U/L (0-33) 03/17/24 19:23 Alkaline Phosphatase 74 U/L (35-105) 03/17/24 19:23 Total Protein 8.0 g/dL (6.6-8.7) 03/17/24 19:23 Albumin 4.8 g/dL (3.5-5.2) 03/17/24 19:23 Globulin 3.2 g/dL (1.3-4.6) 03/17/24 19:23 Urine Color Yellow (Yellow) 03/17/24 18:40 Urine Appearance Clear (CLEAR) 03/17/24 18:40 Urine pH 6 (5-7) 03/17/24 18:40 Ur Specific [place] 1.020 (1.005-1.030) 03/17/24 18:40 Urine Protein Trace (Negative) 03/17/24 18:40 Urine Glucose (UA) Norm (Normal) 03/17/24 18:40 Urine Ketones 1+ (Negative) H 03/17/24 18:40 Urine Blood 2+ (Negative) H 03/17/24 18:40 Urine Nitrate Negative (Negative) 03/17/24 18:40 Urine Bilirubin Neg (Negative) 03/17/24 18:40 Urine Urobilinogen 1 mg/dL (Negative) H 03/17/24 18:40 Ur Leukocyte Esterase Negative (Negative) 03/17/24 18:40 Urine RBC 5-10 /hpf (0-2) H 03/17/24 18:40 Urine WBC 0-4 /hpf (0-5) H 03/17/24 18:40 Ur Squamous Epith Cells 0-4 /hpf (0-5) H 03/17/24 18:40 Amorphous Sediment Not Reportable 03/17/24 18:40 Urine Bacteria Trace /hpf (NONE) 03/17/24 18:40 Urine Mucus Trace /hpf 03/17/24 18:40 Discharge Plan Discharge Patient Disposition: Home Clinical Impression: Migraine, Musculoskeletal back pain Condition: Stable Prescriptions: No Action losartan 25 mg tablet 25 mg PO DAILY Qty: 90 3RF ondansetron HCl 4 mg tablet 4 mg PO Q6H PRN (Reason: nausea and vomiting) Qty: 14 0RF Discharge Orders: Discharge ED (Routine); Ordered 03/17/24 Ordered By: Silvestre Del Castillo Discharge Diet: Usual diet Discharge Activity: Increase activity as tolerated Patient Instructions: Migraine Headache (ED), Back Pain (ED), Core Strengthening Exercises (ED) Activity Restrictions/Additional Instructions: Tylenol for pain as needed. Gentle range of motion exercises as tolerated. Avoid any potential migraine triggers. Plenty of fluids. Return with any new or worsening. Follow-up with primary care next week. Coding Level of Care Code ED Policy Change Clerk for Brittnee Bowman
[2024-03-17 19:09] LABS: Add Urine Microscopic? YES; Bacteria Urine TRACE /hpf; Bilirubin Urine Neg (Negative); Blood Urine 2+ (Negative); Glucose Urine UA Norm (Normal); Ketones Urine 1+ (Negative); Leukocyte Esterase Urine Negative (Negative); Nitrate Urine Negative (Negative); Protein Urine Trace (Negative); Squamous Epithelial Cell Urine 0-4 /hpf (0-5); Urine Appearance Clear (CLEAR); Urine Color Yellow (Yellow); Urobilinogen Urine 1 mg/dL (Negative); WBC Urine 0-4 /hpf (0-5); pH Urine 6 (5-7)
[2024-03-17 19:10] LABS: Mucus Urine TRACE /hpf
[2024-03-17] MEDS: dexamethasone 10 mg/mL INJ 8 MG IVP (19:12)
[2024-03-17] MEDS: diphenhydrAMINE 50 mg/mL SDV 1mL IVP (19:14)
--- NOTE | 2024-03-17 19:14 | CTR_ITS ---
PROCEDURE INFORMATION: Exam: CT Abdomen And Pelvis Without Contrast Exam date and time: 03/17/2024 7:24 PM Age: 38 years old Clinical indication: Abdominal pain; Prior surgery; Surgery date: 6+ months; Surgery type: Gb. Appy. Patient HX: Back pain with hematuria; TECHNIQUE: Imaging protocol: Computed tomography of the abdomen and pelvis without contrast. Radiation optimization: All CT scans at this facility use at least one of these dose optimization techniques: automated exposure control; mA and/or kV adjustment per patient size (includes targeted exams where dose is matched to clinical indication); or iterative reconstruction. COMPARISON: CT abdomen pelvis w con* [id number] 01/29/2024 9:42 PM RADIATION DOSE METRICS: Total DLP (mGy-cm): 1120 FINDINGS: Liver: Normal. No mass. Gallbladder and bile ducts: The gallbladder has been removed. Pancreas: Mild moderate fatty atrophy of the pancreas Spleen: Normal. No splenomegaly. Adrenal glands: Normal. No mass. Kidneys and ureters: Normal. No hydronephrosis. Stomach and bowel: Proximal colonic diverticulum. Appendix: There has been an appendectomy. Intraperitoneal space: Unremarkable. No free air. No significant fluid collection. Vasculature: Unremarkable. No abdominal aortic aneurysm. Lymph nodes: Unremarkable. No enlarged lymph nodes. Urinary bladder: Unremarkable as visualized. Reproductive: Unremarkable as visualized. Bones/joints: Unremarkable. No acute fracture. Soft tissues: Tiny fat containing hernia. There is an adjacent metallic density. CT/CT kidney stone [id number] IMPRESSION: No acute findingsNon acute findings as described above.
[2024-03-17] MEDS: metoclopramide 5 mg/mL SDV 2 mL 10 MG IVP (19:15)
[2024-03-17] MEDS: sodium chloride 0.9% 1,000 ML 999 ML IV (19:22)
[2024-03-17 19:37] LABS: Basophils # 0.1 10^3/uL (0.0-0.1); Basophils % 0.7 %; Eosinophils # 0.1 10^3/uL (0.0-0.8); Eosinophils % 0.6 %; Hematocrit 38.8 % (36-47); Lymphocytes # 2.7 10^3/uL (0.8-4.8); Lymphocytes % 31.6 %; Mean Corpuscular HGB Conc 34.8 g/dL (30-55); Mean Corpuscular Hemoglobin 30.8 pg (27-33); Mean Corpuscular Volume 88.6 fl (85-98); Mean Platelet Volume 9.3 fL (7.4-10.4); Monocytes # 0.5 10^3/uL (0.2-0.9); Monocytes % 6.3 %; Neutrophils # 5.08 10^3/uL (1.8-7.7); Neutrophils % 60.6 %; Nucleated Red Blood Cells % 0 %; Platelet Count 272 10^3/cmm (157-399); Red Blood Count 4.38 10^6/uL (3.85-5.65); Red Cell Distribution Width 11.9 % (12.1-15.1); White Blood Count 8.39 10^3/uL (3.29-11.43)
[2024-03-17 19:38] VITALS: PULSE 84; RESP 16; O2SAT 94
[2024-03-17 19:52] LABS: Alanine Aminotransferase 31 U/L (0-33); Albumin Level 4.8 g/dL (3.5-5.2); Alkaline Phosphatase 74 U/L (35-105); Anion Gap 14.7 (5-19); Aspartate Amino Transferase 25 U/L (0-32); Blood Urea Nitrogen 9 mg/dL (6-20); Calcium 9.3 mg/dL (8.5-10.5); Carbon Dioxide 24 mmol/L (22-29); Chloride 103 mmol/L (98-107); Creatinine Clr Calc Pharmacy 153.0017; Globulin 3.2 g/dL (1.3-4.6); Glomerular Filtration Rate 112.5 mL/min (90-130); Glucose 120 mg/dL (65-115); Osmolality Calculated 286 mOsm/kg (285-295); Potassium 3.7 mmol/L (3.5-5.1); Sodium 138 mmol/L (136-145); Total Bilirubin 0.5 mg/dL (0.15-1.2)
[2024-03-17 21:01] VITALS: PULSE 69; O2SAT 97
== END 2024-03-17 20:03 | disposition home or self-care (01) ==
PROVIDERS: Emergency Provider Physician Assistant
DX: G43.909 Migraine, unspecified, not intractable, without status migrainosus (principal); M54.9 Dorsalgia, unspecified
CPT/HCPCS: 74176; 80053; 81001; 85025; 96374; 96375; 99285; J1100; J1200; J2765; J7030

== ENCOUNTER 2024-04-21 00:45 | Emergency (ER) | payer SELFPAY ==
[2024-04-21 00:46] VITALS: BP 155/88; PULSE 59; RESP 18; TEMP 37.3; O2SAT 96; BMI 39.9
--- NOTE | 2024-04-21 01:15 | ED_ITS ---
HPI - Headache General: Chief Complaint: Headache Stated Complaint: Headache Time Seen by Provider: 04/21/24 00:49 History of Present Illness: Patient presents to the ER by EMS with complaints of headache. Patient had this headache all day long. She states that the migraine. She has tried ibuprofen today with no relief, patient has had nausea vomiting has not been able to keep anything down. She has a history of migraines and this is similar to those with no differences. Review of Systems General: Reports: 10 or more systems reviewed and unremarkable except in HPI and below Physical Exam Const: COMMON NORMALS: no acute distress, average body habitus, patient oriented x3, no limitations, healthy appearing, alert and well nourished HENMT: COMMON NORMALS: normocephalic, atraumatic, hearing grossly normal bilaterally, external ears normal, Normal external nose present and moist oral mucous membranes HEAD & SCALP: normocephalic and atraumatic NOSE: Normal external nose present EXTERNAL EAR: Yes external ears normal Eye: COMMON NORMALS: Equal, round and reactive pupils present, EOMs intact bilaterally, conjunctivae normal and no scleral icterus CONJUNCTIVA: Yes conjunctivae normal PUPIL: Yes Equal, round and reactive pupils present Neck/C-Spine: COMMON NORMALS: full ROM, no lymphadenopathy, supple, no meningeal signs, no JVD and Thyroid normal THYROID: Thyroid normal Chest: COMMONS NORMALS: normal inspection of the chest and normal palpation of entire chest wall Resp: COMMON NORMALS: normal respiratory effort, No retractions, No use of accessory muscles and clear to auscultation bilaterally AUSCULTATION: clear to auscultation bilaterally Cardio: COMMON NORMALS: no JVD, regular rate, regular rhythm, S1 normal heart sound present, S2 normal heart sound present, No gallops present (Cardio), No clicks present (Cardio), No murmurs present (Cardio) and No rub (Cardio) RATE: regular rate RHYTHM: regular rhythm HEART SOUNDS: S1 normal heart sound present and S2 normal heart sound present GI: COMMON NORMALS: Normal to inspection, nondistended, normoactive bowel sounds present, Soft to palpation, non-tender, No hepatosplenomegaly present and no masses PALPATION: Yes Soft to palpation and Yes No hepatosplenomegaly present Neuro: COMMON NORMALS: patient oriented x3 SENSORIUM/ORIENTATION: Yes alert MENINGEAL SIGNS: Yes no meningeal signs Course Vital Signs: Vital signs: Vital Signs Temperature 99.2 F 04/21/24 00:46 Pulse Rate 51 L 04/21/24 01:56 Respiratory Rate 18 04/21/24 00:46 Blood Pressure 155/88 04/21/24 00:46 Pulse Oximetry 98 04/21/24 01:56 MDM - Headache Medical Decision Making Patient was given a liter of fluid, 500 mg Depacon IV, 10 mg Reglan 50 mg of Benadryl improved her headache. Patient will be discharged home Differential Diagnosis Likely migraine and headache; Unlikely tension headache, subarachnoid hemorrhage, meningitis, sinusitis or postconcussion syndrome Medical Records I reviewed the patient's medical records. Lab Data I reviewed the patient's lab results. No radiology studies performed this visit Discharge Plan Discharge Patient Disposition: Home Clinical Impression: Migraine Qualifiers: Migraine type: unspecified Status migrainosus presence: without status migrainosus Intractability: not intractable Qualified Code(s): G43.909 - Migraine, unspecified, not intractable, without status migrainosus Condition: Stable Prescriptions: No Action losartan 25 mg tablet 25 mg PO DAILY Qty: 90 3RF ondansetron HCl 4 mg tablet 4 mg PO Q6H PRN (Reason: nausea and vomiting) Qty: 14 0RF Discharge Orders: Discharge ED (Routine); Ordered 04/21/24 Ordered By: John Boles Patient Instructions: Headache - Migraine (Adult) Activity Restrictions/Additional Instructions: Please follow-up with your family practice doctor or neurologist as needed for further evaluation and possible treatment change for your migraines. Coding Level of Care Code ED Cycle Director for Brittnee Bowman
[2024-04-21] MEDS: diphenhydrAMINE 50 mg/mL SDV 1mL IVP (01:16)
[2024-04-21] MEDS: metoclopramide 5 mg/mL SDV 2 mL 10 MG IVP (01:17)
[2024-04-21] MEDS: valproic acid inj 500 MG in sodium chloride 0.9% 50 ML 55 MG IV (01:18)
[2024-04-21] MEDS: sodium chloride 0.9% 1,000 ML 999 ML IV (01:23)
[2024-04-21 01:56] VITALS: PULSE 51; O2SAT 98
[2024-04-21 02:54] VITALS: BP 145/79; PULSE 54; RESP 15; O2SAT 97
== END 2024-04-21 02:59 | disposition home or self-care (01) ==
PROVIDERS: Emergency Provider Emergency Medicine
DX: G43.909 Migraine, unspecified, not intractable, without status migrainosus (principal)
CPT/HCPCS: 96374; 96375; 99284; J1200; J2765; J3490; J7030

== ENCOUNTER 2024-08-27 17:53 | Emergency (ER) | payer SELFPAY ==
[2024-08-27 17:55] VITALS: PULSE 83; RESP 22; TEMP 36.4; O2SAT 96
--- NOTE | 2024-08-27 18:29 | ECG_ITS ---
[facility]: 2024-08-27 Pat Name: Sarah Dooley Department: Room: Gender: Female Medical Transcription Supervisor: : [id number] Requested By: Pj Fisher Order Number: [id number] Anastacia MD: Deven Saini M.D. Measurements Intervals [place] Rate: 85 P: 48 SD: 154 QRS: 55 QRSD: 106 T: 12 QT: 400 QTc: 477 Interpretive Statements SINUS RHYTHM NONSPECIFIC ST & T-WAVE ABNORMALITY Compared to ECG 12/31/2023 19:51:20 Possible ischemia no longer present T-wave abnormality still present Electronically Signed On 08-31-2024 21:20:00 HAND BUTTON SPLITTER by Deven Saini M.D. [email or web address]
--- NOTE | 2024-08-27 18:29 | XRR_ITS ---
PROCEDURE INFORMATION: Exam: XR Chest Exam date and time: 08/27/2024 6:47 PM Age: 38 years old Clinical indication: Chest pressure; Prior surgery; Surgery date: 6+ months; Surgery type: Gb; Patient HX: C/O cough and chest pain; Additional info: Cp, cough TECHNIQUE: Imaging protocol: Radiologic exam of the chest. Views: 1 view. COMPARISON: CR (CHEST, ) 12/31/2023 7:46 PM FINDINGS: Lungs: There is suggestion of minimal patchy opacity in the left lower lung field concerning for possible infiltrate. Lungs otherwise appear clear throughout. Pleural spaces: No pneumothorax or pleural effusion. Heart/Mediastinum: Normal size of the cardiac silhouette. Bones/joints: Regional osseous structures are unremarkable. XR/XR chest 1V portable [id number] IMPRESSION: 1. Question pulmonary opacity in the left lower lung field raising concern for possible infiltrate.
[2024-08-27 18:49] LABS: Basophils # 0.1 10^3/uL (0.0-0.1); Eosinophils # 0.3 10^3/uL (0.0-0.8); Eosinophils % 4.8 %; Hematocrit 37.8 % (36-47); Lymphocytes # 2.6 10^3/uL (0.8-4.8); Lymphocytes % 38.2 %; Mean Corpuscular HGB Conc 33.1 g/dL (30-55); Mean Corpuscular Hemoglobin 29.9 pg (27-33); Mean Corpuscular Volume 90.4 fl (85-98); Mean Platelet Volume 9.3 fL (7.4-10.4); Monocytes # 0.5 10^3/uL (0.2-0.9); Monocytes % 7.3 %; Neutrophils # 3.27 10^3/uL (1.8-7.7); Neutrophils % 48.6 %; Nucleated Red Blood Cells % 0 %; Platelet Count 227 10^3/cmm (157-399); Red Blood Count 4.18 10^6/uL (3.85-5.65); Red Cell Distribution Width 11.9 % (12.1-15.1); White Blood Count 6.73 10^3/uL (3.29-11.43)
[2024-08-27 18:59] LABS: Troponin(5th) Baseline < 6 ng/L (0-10)
--- NOTE | 2024-08-27 19:01 | ED_ITS ---
HPI - General Adult 2 General: Chief complaint: Abdominal Pain Stated complaint: back and chest pain Time Seen by Provider: 08/27/24 17:56 History of Present Illness: 38-year-old female presenting with multi ple complaints. She states she has had a cough and congestion for the past 4 days or so. She has had diarrhea on and off for months. She complains of urinary frequency today, and says that she urinated on herself without knowing. She said chest discomfort, mid back discomfort, and some shortness of breath. She denies fever. Related Data Previous Rx's Medication Instructions Recorded losartan 25 mg tablet 25 mg PO DAILY #90 tabs 03/02/24 levofloxacin 750 mg tablet 750 mg PO DAILY 7 days #7 tabs 08/27/24 ondansetron HCl 4 mg tablet 4 mg PO Q6H PRN nausea and 08/27/24 vomiting #14 tabs Allergies Allergy/AdvReac Type Severity Reaction Status Date / Time ketorolac [From Toradol] Allergy ADR-Seizure Verified 03/17/24 18:02 Penicillins Allergy ALGY-Rash Verified 01/29/24 20:39 Physical Exam 2 Const: COMMON NORMALS: no acute distress GENERAL APPEARANCE: cooperative and ill appearing (mildly); not frail appearing HENMT: COMMON NORMALS: normocephalic, atraumatic and Normal external nose present HEAD & SCALP: normocephalic and atraumatic FACE & SINUS: normal facial exam and face symmetric NOSE: Normal external nose present Eye: COMMON NORMALS: Equal, round and reactive pupils present and EOMs intact bilaterally PUPIL: Yes Equal, round and reactive pupils present Neck/C-Spine: GENERAL: Yes trachea midline Chest: CHEST: Yes Symmetrical chest wall rise Resp: COMMON NORMALS: normal respiratory effort, No retractions, No use of accessory muscles and clear to auscultation bilaterally AUSCULTATION: clear to auscultation bilaterally Cardio: COMMON NORMALS: regular rate and regular rhythm RATE: regular rate RHYTHM: regular rhythm GI: COMMON NORMALS: Normal to inspection, nondistended, normoactive bowel sounds present Extremity: COMMON NORMALS: no pedal edema Neuro: ALONDRA COMA SCALE: document GCS findings Alondra coma scale eye opening: Spontaneous Alondra coma scale verbal response: Orientated [place] coma scale motor response: Obey commands Alondra coma scale total score: 15 S ENSORY EXAM: Yes extremities (intact) Psych: COMMON NORMALS: speech normal SPEECH: Yes normal speech Skin: COMMON NORMALS: no rashes or lesions noted GENERAL SKIN EXAM: no rashes or lesions noted Course 2 Vital Signs: Vital signs: Vital Signs Temperature 97.5 F L 08/27/24 17:55 Pulse Rate 83 08/27/24 17:55 Respiratory Rate 22 H 08/27/24 17:55 Pulse Oximetry 96 08/27/24 17:55 MDM - General Adult Medical Decision Making Vitals have been good here. She has received a liter of fluid. Nausea medicine. She is feeling better. CBC and BMP are normal. Her D-dimer is normal. Troponin is 6 at 0 and 2 hours. BNP is nondetectable. Lipase is normal. No UTI on urinalysis. Swabs are negative for COVID flu and RSV. Chest x-ray however reveals a questionable left lower lung infiltrate. She will be treated for this. Levaquin here and for home. Lab Data 08/27/24 18:34 08/27/24 18:34 Radiology Impressions Chest X-Ray 08/27/24 18:29 IMPRESSION: 1. Question pulmonary opacity in the left lower lung field raising concern for possible infiltrate. Laboratory Results WBC 6.73 10^3/uL (3.29-11.43) 08/27/24 18:34 RBC 4.18 10^6/uL (3.85-5.65) 08/27/24 18:34 Hgb 12.50 g/dL (11.27-16.99) 08/27/24 18:34 Hct 37.8 % (36-47) 08/27/24 18:34 MCV 90.4 fl (85-98) 08/27/24 18:34 MCH 29.9 pg (27-33) 08/27/24 18:34 MCHC 33.1 g/dL (30-55) 08/27/24 18:34 RDW 11.9 % (12.1-15.1) L 08/27/24 18:34 Plt Count 227 10^3/cmm (157-399) 08/27/24 18:34 MPV 9.3 fL (7.4-10.4) 08/27/24 18:34 Neut % (Auto) 48.6 % 08/27/24 18:34 Lymph % (Auto) 38.2 % 08/27/24 18:34 [place] % (Auto) 7.3 % 08/27/24 18:34 Eos % (Auto) 4.8 % 08/27/24 18:34 Baso % (Auto) 1.0 % 08/27/24 18:34 Neut # (Auto) 3.27 10^3/uL (1.8-7.7) 08/27/24 18:34 Lymph # (Auto) 2.6 10^3/uL (0.8-4.8) 08/27/24 18:34 [place] # (Auto) 0.5 10^3/uL (0.2-0.9) 08/27/24 18:34 Eos # (Auto) 0.3 10^3/uL (0.0-0.8) 08/27/24 18:34 Baso # (Auto) 0.1 10^3/uL (0.0-0.1) 08/27/24 18:34 Nucleated RBC % (auto) 0 % 08/27/24 18:34 Nucleated RBCs # 0.0 /100WBC 08/27/24 18:34 D-Dimer 0.30 ug/mLFEU (0-0.59) 08/27/24 18:34 Sodium 140 mmol/L (136-145) 08/27/24 18:34 Potassium 4.1 mmol/L (3.5-5.1) 08/27/24 18:34 Chloride 104 mmol/L (98-107) 08/27/24 18:34 Carbon Dioxide 27 mmol/L (22-29) 08/27/24 18:34 Anion Gap 13.1 (5-19) 08/27/24 18:34 BUN 7 mg/dL (6-20) 08/27/24 18:34 Creatinine 0.8 mg/dL (0.5-0.9) 08/27/24 18:34 GFR Calculation 80.7 mL/min (90-130) L 08/27/24 18:34 Glucose 96 mg/dL (65-115) 08/27/24 18:34 Calculated Osmolality 288 mOsm/kg (285-295) 08/27/24 18:34 Calcium 8.8 mg/dL (8.5-10.5) 08/27/24 18:34 Total Bilirubin 0.3 mg/dL (0.15-1.2) 08/27/24 18:34 AST 36 U/L (0-32) H 08/27/24 18:34 ALT 44 U/L (0-33) H 08/27/24 18:34 Alkaline Phosphatase 74 U/L (35-105) 08/27/24 18:34 Troponin T Baseline < 6 ng/L (0-10) 08/27/24 18:34 Troponin T 120 Minute 6.00 ng/L (0-10) 08/27/24 20:08 Delta Troponin T 0.30509 ABS# (0-10) 08/27/24 20:08 NT-Pro-B Natriuret Pep < 36 pg/mL (0-125) 08/27/24 18:34 Total Protein 5.8 g/dL (6.6-8.7) L 08/27/24 18:34 Albumin 4.2 g/dL (3.5-5.2) 08/27/24 18:34 Globulin 1.6 g/dL (1.3-4.6) 08/27/24 18:34 Lipase 15 U/L (13-60) 08/27/24 18:34 HCG, Qual Negative (Negative) 08/27/24 18:34 Urine Color Yellow (Yellow) 08/27/24 19:00 Urine Appearance Clear (CLEAR) 08/27/24 19:00 Urine pH 5.5 (5-7) 08/27/24 19:00 Ur Specific [place] 1.028 (1.005-1.030) 08/27/24 19:00 Urine Protein Trace (Negative) A 08/27/24 19:00 Urine Glucose (UA) Negative (Normal) 08/27/24 19:00 Urine Ketones Negative (Negative) 08/27/24 19:00 Urine Blood Non-haemolysed trace (Negative) 08/27/24 19:00 Urine Nitrate Negative (Negative) 08/27/24 19:00 Urine Bilirubin Negative (Negative) 08/27/24 19:00 Urine Urobilinogen 1.0 mg/dL (Negative) 08/27/24 19:00 Ur Leukocyte Esterase Negative (Negative) 08/27/24 19:00 Urine RBC 3-5 /hpf (0-2) 08/27/24 19:00 Urine WBC 0-5 /hpf (0-5) 08/27/24 19:00 Ur Squamous Epith Cells 6-10 /hpf (0-5) 08/27/24 19:00 Amorphous Sediment Not Reportable 08/27/24 19:00 Urine Bacteria Trace /hpf (NONE) 08/27/24 19:00 Hyaline Casts 1.65 /lpf 08/27/24 19:00 Ethyl Alcohol < 10 mg/dL (0-10) 08/27/24 18:34 Coronavirus (PCR) Negative (Negative) 08/27/24 19:00 Influenza A (PCR) Negative (Negative) 08/27/24 19:00 Influenza Type B (PCR) Negative (Negative) 08/27/24 19:00 RSV (PCR) Negative (Negative) 08/27/24 19:00 All radiology interpretation(s) finalized by discharge Discharge Plan Discharge Patient Disposition: Home Clinical Impression: Pneumonia Condition: Stable Prescriptions: New levofloxacin 750 mg tablet 750 mg PO DAILY 7 Days Qty: 7 0RF Continued ondansetron HCl 4 mg tablet 4 mg PO Q6H PRN (Reason: nausea and vomiting) Qty: 14 0RF No Action losartan 25 mg tablet 25 mg PO DAILY Qty: 90 3RF Discharge Orders: Discharge ED (Routine); Ordered 08/27/24 Ordered By: Pj Mcgarry Patient Instructions: Pneumonia (ED), Opioid Safety, Pain Management Activity Restrictions/Additional Instructions: Stay hydrated. Take nausea medication as needed. Return for worsening pain, shortness of breath, other concerning symptoms. Call your doctor tomorrow for an appointment this week for follow-up. Coding Level of Care Code ED Audience Coordinator for Brittnee Bowman
[2024-08-27] MEDS: sodium chloride 0.9% 1,000 ML 999 ML IV (19:06)
[2024-08-27 19:15] LABS: Alanine Aminotransferase 44 U/L (0-33); Albumin Level 4.2 g/dL (3.5-5.2); Alkaline Phosphatase 74 U/L (35-105); Anion Gap 13.1 (5-19); Aspartate Amino Transferase 36 U/L (0-32); Blood Urea Nitrogen 7 mg/dL (6-20); Calcium 8.8 mg/dL (8.5-10.5); Carbon Dioxide 27 mmol/L (22-29); Chloride 104 mmol/L (98-107); Creatinine Clr Calc Pharmacy 118.1694; Globulin 1.6 g/dL (1.3-4.6); Glomerular Filtration Rate 80.7 mL/min (90-130); Glucose 96 mg/dL (65-115); Lipase 15 U/L (13-60); NT Pro B Type Natriuretic Pept < 36 pg/mL (0-125); Osmolality Calculated 288 mOsm/kg (285-295); Potassium 4.1 mmol/L (3.5-5.1); Sodium 140 mmol/L (136-145); Total Bilirubin 0.3 mg/dL (0.15-1.2); Total Protein 5.8 g/dL (6.6-8.7)
[2024-08-27 19:17] LABS: Alcohol Level < 10 mg/dL (0-10); HCG, Serum Qual Negative (Negative)
[2024-08-27 19:19] LABS: Bilirubin Urine Negative (Negative); Blood Urine Non-haemolysed trace (Negative); Glucose Urine UA Negative (Normal); Ketones Urine Negative (Negative); Leukocyte Esterase Urine Negative (Negative); Nitrate Urine Negative (Negative); Protein Urine Trace (Negative); Specific Gravity, Urine 1.028 (1.005-1.030); Urine Appearance Clear (CLEAR); Urine Color Yellow (Yellow); pH Urine 5.5 (5-7)
[2024-08-27 19:24] LABS: Add Urine Microscopic? YES; Bacteria Urine Trace /hpf; Hyaline Casts Urine 1.65 /lpf; WBC Urine 0-5 /hpf (0-5)
[2024-08-27 19:30] VITALS: BP 124/69; PULSE 65; O2SAT 98
[2024-08-27 20:01] LABS: Covid PCR NEGATIVE (Negative); Influenza A NEGATIVE (Negative); Influenza B NEGATIVE (Negative); Respiratory Syncytial Virus Ce NEGATIVE (Negative)
[2024-08-27 20:37] LABS: Troponin 5 2HR Delta 0.00001 ABS# (0-10)
--- NOTE | 2024-08-27 20:46 | ECG_ITS ---
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
[2024-08-27] MEDS: metoclopramide 5 mg/mL SDV 2 mL IVP (21:50)
[2024-08-27] MEDS: ondansetron 2 mg/ML SDV 2 mL 4 MG IVP (21:51)
[2024-08-27] MEDS: dexamethasone 4 mg/mL INJ 8 MG IVP (21:55)
[2024-08-27] MEDS: levoFLOXacin 750 mg Tablet PO (21:56)
[2024-08-27 22:00] VITALS: BP 135/74; PULSE 75; O2SAT 94
[2024-08-27 22:54] VITALS: BP 120/69; PULSE 79; O2SAT 97
== END 2024-08-27 22:10 | disposition home or self-care (01) ==
PROVIDERS: Emergency Provider Emergency Medicine
DX: J18.9 Pneumonia, unspecified organism (principal); Z11.52 Encounter for screening for COVID-19
CPT/HCPCS: 0241U; 36415; 71045; 80053; 80307; 81001; 83690; 83880; 84484; 84703; 85025; 85378; 93005; 96361; 96374; 96375; 99285; J1100; J2405; J2765; J7030

== ENCOUNTER 2024-11-10 16:36 | Emergency (ER) | payer SELFPAY ==
[2024-11-10 16:38] VITALS: BP 118/75; PULSE 62; RESP 17; TEMP 36.9; O2SAT 95; BMI 38.2
--- NOTE | 2024-11-10 16:42 | ECG_ITS ---
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1985 Requested By: John Boles Order Number: [id number] Reading MD: HARJIT DICK Measurements Intervals [place] Rate: 56 P: 22 ID: [id number] QRS: 37 QRSD: 100 T: 3 QT: 410 QTc: 398 Interpretive Statements SINUS BRADYCARDIA WITH SINUS ARRHYTHMIA POSSIBLE RIGHT VENTRICULAR CONDUCTION DELAY [RSR (QR) IN V1/V2] MODERATE T-WAVE ABNORMALITY, CONSIDER ANTERIOR ISCHEMIA [-0.1+ mV T-WAVE IN V3/V4] Compared to ECG 08/27/2024 20:46:43 Sinus rhythm no longer present T-wave abnormality still present Possible ischemia still present Electronically Signed On 11-10-2024 23:19:34 SHIFT SUPERVISOR MELTING by HARJIT DICK [id number]
--- NOTE | 2024-11-10 21:38 | XRR_ITS ---
PROCEDURE INFORMATION: Exam: XR Chest Exam date and time: 11/10/2024 10:04 PM Age: 39 years old Clinical indication: Patient HX: SOB; Cough x 1 mo; Additional info: Sob/cough for a month TECHNIQUE: Imaging protocol: Radiologic exam of the chest. Views: 1 view. COMPARISON: CR XR chest 1V portable [id number] 08/27/2024 6:47 PM FINDINGS: Lungs: Unremarkable. No consolidation. Pleural spaces: Unremarkable. No pleural effusion. No pneumothorax. Heart/Mediastinum: Unremarkable. No cardiomegaly. Bones/joints: Unremarkable. XR/XR chest 1V portable [id number] IMPRESSION: No acute findings.
--- NOTE | 2024-11-10 21:39 | ED_ITS ---
HPI - SOB/Dyspnea 2 General: Chief Complaint: Shortness of Breath/Dyspnea Stated Complaint: cp, cough, neck pain Time Seen by Provider: 11/10/24 20:10 Source: patient Mode of arrival: ambulatory Limitations: no limitations History of Present Illness: HPI Narrative: Patient is a 39-year-old female who presents to the emergency department complaining of shortness of breath greater than a month. She was seen here on 08/27 of the last year, diagnosed with left lower lobe pneumonia started on Levaquin. States that she does not feel it is ever really cleared up, she is starting to have worsening cough with hemoptysis. Also was reporting some chest pain. Her vitals are stable, no fevers. No pertinent cardiac history. MD elicited complaint: shortness of breath, cough and chest pain Onset (ago): month(s) Timing: constant Severity: moderate Exacerbating factors: exertion Relieving factors: nothing Associated symptoms: Reports chest pain and hemoptysis; Deny abdominal pain, fever(s), lightheadedness, nausea, palpitations or vomiting Related Data Previous Rx's Medication Instructions Recorded losartan 25 mg tablet 25 mg PO DAILY #90 tabs 03/02/24 ondansetron HCl 4 mg tablet 4 mg PO Q6H PRN nausea and 08/27/24 vomiting #14 tabs buprenorphine 8 mg-naloxone 2 mg 1 tab sublingual TID 7 days #21 10/31/24 sublingual tablet tabs zolpidem 10 mg tablet (Ambien) 1 mg (0.1 x 10 mg) PO BEDTIME 16 10/31/24 days #16 tabs Allergies Allergy/AdvReac Type Severity Reaction Status Date / Time ketorolac [From Toradol] Allergy ADR-Seizure Verified 03/17/24 18:02 Penicillins Allergy ALGY-Rash Verified 01/29/24 20:39 Review of Systems 2 General: Reports: 10 or more systems reviewed and unremarkable except in HPI and below Const: Denies: fever(s), chills or fatigue Eyes: Denies: change in vision ENMT: Denies: throat pain, ear or mastoid pain or nasal discharge Card: Reports: chest pain; Denies: palpitations, swelling of feet/ankles or lightheadedness Resp: Reports: dyspnea, productive cough and hemoptysis; Denies: wheezing GI: Denies: abdominal pain, nausea, vomiting, diarrhea or constipation : Denies: flank pain, difficulty voiding, dysuria or urinary frequency Musc: Denies: neck pain, back pain or joint pain Skin/Breast: Denies: rash Neuro: Denies: headache(s), numbness in extremities or weakness in extremities PFSH ED 2 PFSH: Medical History Psychiatric care Physical Exam 2 Const: COMMON NORMALS: no acute distress, patient oriented x3 and no limitations GENERAL APPEARANCE: cooperative, comfortable and well developed ORIENTATION/CONSCIOUSNESS: Yes awake, Yes oriented to person, Yes oriented to place and Yes oriented to time HENMT: COMMON NORMALS: normocephalic, atraumatic and hearing grossly normal bilaterally HEAD & SCALP: normocephalic and atraumatic Eye: COMMON NORMALS: Equal, round and reactive pupils present, EOMs intact bilaterally and conjunctivae normal CONJUNCTIVA: Yes conjunctivae normal P UPIL: Yes Equal, round and reactive pupils present Neck/C-Spine: COMMON NORMALS: full ROM, supple and no JVD Resp: COMMON NORMALS: normal respiratory effort, No retractions, No use of accessory muscles and clear to auscultation bilaterally AUSCULTATION: clear to auscultation bilaterally Cardio: COMMON NORMALS: no JVD, regular rate, regular rhythm, No clicks present (Cardio), No murmurs present (Cardio) and No rub (Cardio) RATE: r egular rate RHYTHM: regular rhythm Extremity: COMMON NORMALS: normal to inspection, full ROM and capillary refill normal Neuro: COMMON NORMALS: patient oriented x3, moves all extremities, no focal motor deficits and no sensory deficits noted SENSORIUM/ORIENTATION: Yes oriented to person, Yes oriented to place and Yes oriented to time Psych: COMMON NORMALS: mental status grossly normal and Normal thought process present THOUGHT PROCESS: Normal thought process present Skin: COMMON NORMALS: no rashes or lesions noted GENERAL SKIN EXAM: no rashes or lesions noted Course 2 Vital Signs: Vital signs: Vital Signs Temperature 98.4 F 11/10/24 16:38 Pulse Rate 62 11/10/24 16:38 Respiratory Rate 17 11/10/24 16:38 Blood Pressure 118/75 11/10/24 16:38 Pulse Oximetry 95 11/10/24 16:38 Oxygen Delivery Me thod Room Air 11/10/24 16:38 MDM - SOB/Dyspnea Medical Decision Making Patient left AGAINST MEDICAL ADVICE before labs resulting, states she would like to be called if anything serious. Lab Data 11/10/24 21:51 11/10/24 21:51 Labs/Radiology: Laboratory Results WBC 8.89 10^3/uL (3.29-11.43) 11/10/24 21:51 RBC 4.92 10^6/uL (3.85-5.65) 11/10/24 21:51 Hgb 14.40 g/dL (11.27-16.99) 11/10/24 21:51 Hct 43.3 % (36-47) 11/10/24 21:51 MCV 88.0 fl (85-98) 11/10/24 21:51 MCH 29.3 pg (27-33) 11/10/24 21:51 MCHC 33.3 g/dL (30-55) 11/10/24 21:51 RDW 11.9 % (12.1-15.1) L 11/10/24 21:51 Plt Count 258 10^3/cmm (157-399) 11/10/24 21:51 MPV 9.1 fL (7.4-10.4) 11/10/24 21:51 Neut % (Auto) 50.2 % 11/10/24 21:51 Lymph % (Auto) 39.9 % 11/10/24 21:51 [place] % (Auto) 4.4 % 11/10/24 21:51 Eos % (Auto) 4.3 % 11/10/24 21:51 Baso % (Auto) 1.0 % 11/10/24 21:51 Neut # (Auto) 4.46 10^3/uL (1.8-7.7) 11/10/24 21:51 Lymph # (Auto) 3.6 10^3/uL (0.8-4.8) 11/10/24 21:51 [place] # (Auto) 0.4 10^3/uL (0.2-0.9) 11/10/24 21:51 Eos # (Auto) 0.4 10^3/uL (0.0-0.8) 11/10/24 21:51 Baso # (Auto) 0.1 10^3/uL (0.0-0.1) 11/10/24 21:51 Nucleated RBC % (auto) 0 % 11/10/24 21:51 Nucleated RBCs # 0.0 /100WBC 11/10/24 21:51 Sodium 138 mmol/L (136-145) 11/10/24 21:51 Potassium 4.0 mmol/L (3.5-5.1) 11/10/24 21:51 Chloride 100 mmol/L (98-107) 11/10/24 21:51 Carbon Dioxide 26 mmol/L (22-29) 11/10/24 21:51 Anion Gap 16.0 (5-19) 11/10/24 21:51 BUN 7 mg/dL (6-20) 11/10/24 21:51 Creatinine 0.7 mg/dL (0.5-0.9) 11/10/24 21:51 GFR Calculation 93.6 mL/min (90-130) 11/10/24 21:51 Glucose 91 mg/dL (65-115) 11/10/24 21:51 Calculated Osmolality 284 mOsm/kg (285-295) L 11/10/24 21:51 Lactic Acid 0.8 mmol/L (0.5-2.2) 11/10/24 21:51 Calcium 10.0 mg/dL (8.5-10.5) 11/10/24 21:51 Total Bilirubin 0.2 mg/dL (0.15-1.2) 11/10/24 21:51 AST 22 U/L (0-32) 11/10/24 21:51 ALT 29 U/L (0-33) 11/10/24 21:51 Alkaline Phosphatase 84 U/L (35-105) 11/10/24 21:51 Troponin T Baseline < 6 ng/L (0-10) 11/10/24 21:51 C-Reactive Protein 14.2 mg/L (0.0-4.9) H 11/10/24 21:51 Total Protein 8.0 g/dL (6.6-8.7) 11/10/24 21:51 Albumin 4.9 g/dL (3.5-5.2) 11/10/24 21:51 Globulin 3.1 g/dL (1.3-4.6) 11/10/24 21:51 HCG, Qual Negative (Negative) 11/10/24 21:51 Urine Color Yellow (Yellow) 11/10/24 22:00 Urine Appearance Clear (CLEAR) 11/10/24 22:00 Urine pH 6.5 (5-7) 11/10/24 22:00 Ur Specific [place] 1.020 (1.005-1.030) 11/10/24 22:00 Urine Protein Negative (Negative) 11/10/24 22:00 Urine Glucose (UA) Negative (Normal) 11/10/24 22:00 Urine Ketones Negative (Negative) 11/10/24 22:00 Urine Blood Negative (Negative) 11/10/24 22:00 Urine Nitrate Negative (Negative) 11/10/24 22:00 Urine Bilirubin Negative (Negative) 11/10/24 22:00 Urine Urobilinogen 0.2 mg/dL (Negative) 11/10/24 22:00 Ur Leukocyte Esterase Negative (Negative) 11/10/24 22:00 Urine RBC 0-2 /hpf (0-2) 11/10/24 22:00 Urine WBC 0-5 /hpf (0-5) 11/10/24 22:00 Ur Squamous Epith Cells 0-5 /hpf (0-5) 11/10/24 22:00 Amorphous Sediment Not Reportable 11/10/24 22:00 Urine Bacteria Trace /hpf (NONE) 11/10/24 22:00 Hyaline Casts 0.40 /lpf 11/10/24 22:00 XR interpretation done by ED provider, pending radiology final review ED provider radiology interpretation(s): Does not appear to be any acute cardiopulmonary process, x-ray compared to previous in August of last year. Discharge Plan Discharge Patient Disposition: Left Against Medical Advice Clinical Impression: Left against medical advice Condition: Stable Prescriptions: No Action losartan 25 mg tablet 25 mg PO DAILY Qty: 90 3RF zolpidem [Ambien] 10 mg Tablet 1 mg PO BEDTIME 16 Days Qty: 16 0RF buprenorphine-naloxone 8-2 mg Tablet, Sublingual 1 tab SUBLINGUAL TID 7 Days Qty: 21 1RF ondansetron HCl 4 mg tablet 4 mg PO Q6H PRN (Reason: nausea and vomiting) Qty: 14 0RF Coding Level of Care Code ED Fabric Machine Operator for Chg Colby
[2024-11-10 21:59] LABS: Basophils # 0.1 10^3/uL (0.0-0.1); Eosinophils # 0.4 10^3/uL (0.0-0.8); Eosinophils % 4.3 %; Hematocrit 43.3 % (36-47); Lymphocytes # 3.6 10^3/uL (0.8-4.8); Lymphocytes % 39.9 %; Mean Corpuscular HGB Conc 33.3 g/dL (30-55); Mean Corpuscular Hemoglobin 29.3 pg (27-33); Mean Platelet Volume 9.1 fL (7.4-10.4); Monocytes # 0.4 10^3/uL (0.2-0.9); Monocytes % 4.4 %; Neutrophils # 4.46 10^3/uL (1.8-7.7); Neutrophils % 50.2 %; Nucleated Red Blood Cells % 0 %; Platelet Count 258 10^3/cmm (157-399); Red Blood Count 4.92 10^6/uL (3.85-5.65); Red Cell Distribution Width 11.9 % (12.1-15.1); White Blood Count 8.89 10^3/uL (3.29-11.43)
[2024-11-10 22:14] LABS: HCG, Serum Qual Negative (Negative)
[2024-11-10 22:18] LABS: Bilirubin Urine Negative (Negative); Blood Urine Negative (Negative); Glucose Urine UA Negative (Normal); Ketones Urine Negative (Negative); Leukocyte Esterase Urine Negative (Negative); Nitrate Urine Negative (Negative); Protein Urine Negative (Negative); Urine Appearance Clear (CLEAR); Urine Color Yellow (Yellow); Urobilinogen Urine 0.2 mg/dL (Negative); pH Urine 6.5 (5-7)
[2024-11-10 22:23] LABS: Add Urine Microscopic? YES; Bacteria Urine Trace /hpf; RBC Urine 0-2 /hpf (0-2); Squamous Epithelial Cell Urine 0-5 /hpf (0-5); WBC Urine 0-5 /hpf (0-5)
[2024-11-10 22:25] LABS: Lactic Sepsis W/Reflex 0.8 mmol/L (0.5-2.2)
[2024-11-10 22:31] LABS: Troponin(5th) Baseline < 6 ng/L (0-10)
[2024-11-10 22:34] LABS: Alanine Aminotransferase 29 U/L (0-33); Albumin Level 4.9 g/dL (3.5-5.2); Alkaline Phosphatase 84 U/L (35-105); Aspartate Amino Transferase 22 U/L (0-32); Blood Urea Nitrogen 7 mg/dL (6-20); C Reactive Protein 14.2 mg/L (0.0-4.9); Carbon Dioxide 26 mmol/L (22-29); Chloride 100 mmol/L (98-107); Creatinine Clr Calc Pharmacy 130.6184; Globulin 3.1 g/dL (1.3-4.6); Glomerular Filtration Rate 93.6 mL/min (90-130); Glucose 91 mg/dL (65-115); Osmolality Calculated 284 mOsm/kg (285-295); Sodium 138 mmol/L (136-145); Total Bilirubin 0.2 mg/dL (0.15-1.2)
[2024-11-10 22:40] LABS: NT Pro B Type Natriuretic Pept 143 pg/mL (0-125)
[2024-11-10 22:47] LABS: Covid PCR NEGATIVE (Negative); Influenza A NEGATIVE (Negative); Influenza B NEGATIVE (Negative); Respiratory Syncytial Virus Ce NEGATIVE (Negative)
== END 2024-11-10 22:29 | disposition left against medical advice (07) ==
PROVIDERS: Emergency Provider Physician Assistant
DX: Z53.21 Procedure and treatment not carried out due to patient leaving prior to being seen by health care provider (principal)
CPT/HCPCS: 36415; 71045; 80053; 81001; 83605; 83880; 84484; 84703; 85025; 86140; 87637; 93005; 99285

== ENCOUNTER → 2024-11-24 10:51 | Outpatient (BNVA) | payer OTHER, SELFPAY | PROVIDERS: Visit Provider Nurse Practitioner Psychiatric/Mental Health | DX: Z79.899 Other long term (current) drug therapy (principal) | CPT/HCPCS: 80307 ==

== ENCOUNTER → 2024-12-19 09:13 | Outpatient (BNVA) | payer OTHER, SELFPAY | PROVIDERS: Visit Provider Nurse Practitioner Psychiatric/Mental Health | DX: F41.1 Generalized anxiety disorder (principal) | CPT/HCPCS: 80061; 83036 ==

== ENCOUNTER 2024-12-26 19:32 | Emergency (ER) | payer MEDICAID, SELFPAY ==
[2024-12-21 11:00] VITALS: BP 137/101; BMI 40.5
[2024-12-26 19:33] VITALS: BP 133/64; PULSE 79; RESP 18; TEMP 36.2; O2SAT 95; BMI 39.9
[2024-12-26 19:43] VITALS: BP 133/64; PULSE 103; RESP 16; O2SAT 94
--- NOTE | 2024-12-26 19:44 | ECG_ITS ---
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 Measurements Intervals [place] Rate: 55 P: 30 ID: [id number] QRS: 21 QRSD: 100 T: 46 QT: 400 QTc: 383 Interpretive Statements SINUS BRADYCARDIA WITH SINUS ARRHYTHMIA NONSPECIFIC T-WAVE ABNORMALITY Compared to ECG 11/10/2024 16:42:12 Possible ischemia no longer present T-wave abnormality still present Electronically Signed On 12-30-2024 19:44:19 CODING SUPPORT SPECIALIST by Hernando Davis M.D. [id number]
--- NOTE | 2024-12-26 19:44 | XRR_ITS ---
PROCEDURE INFORMATION: Exam: XR Chest Exam date and time: 12/26/2024 7:46 PM Age: 39 years old Clinical indication: Shortness of breath and other: Dizzy; Additional info: Dizzy, SOB TECHNIQUE: Imaging protocol: Radiologic exam of the chest. Views: 1 view. COMPARISON: CR XR chest 1V portable [id number] 11/10/2024 10:04 PM FINDINGS: Lungs: Unremarkable. No consolidation. Pleural spaces: Unremarkable. No pleural effusion. No pneumothorax. Heart/Mediastinum: Unremarkable. No cardiomegaly. Bones/joints: Unremarkable. XR/XR chest 1V portable [id number] IMPRESSION: No acute findings.
--- NOTE | 2024-12-26 19:44 | CTR_ITS ---
PROCEDURE INFORMATION: Exam: CT Head Without Contrast Exam date and time: 12/26/2024 8:05 PM Age: 39 years old Clinical indication: Pain; Headache not specified; Additional info: Dizzy, MUÑOZ, nausea/vomiting TECHNIQUE: Imaging protocol: Computed tomography of the head without contrast. Radiation optimization: All CT scans at this facility use at least one of these dose optimization techniques: automated exposure control; mA and/or kV adjustment per patient size (includes targeted exams where dose is matched to clinical indication); or iterative reconstruction. COMPARISON: CT head wo con* [id number] 10/02/2023 7:19 PM RADIATION DOSE METRICS: Total DLP (mGy-cm): 1030.88 FINDINGS: Brain: Normal. No hemorrhage. Unremarkable white matter. No mass effect. Cerebral ventricles: No ventriculomegaly. Paranasal sinuses: Visualized sinuses are unremarkable. No fluid levels. Mastoid air cells: Visualized mastoid air cells are well aerated. Bones: Unremarkable. No acute fracture. Soft tissues: Unremarkable. CT/CT head wo con* [id number] IMPRESSION: No acute intracranial abnormality.
--- NOTE | 2024-12-26 19:49 | W.ED.DIZZY ---
HPI - Dizziness General: Chief Complaint: Dizziness Stated Complaint: dizzy Time Seen by Provider: 12/26/24 19:34 Source: patient Mode of arrival: EMS Limitations: no limitations History of Present Illness: HPI Narrative: Patient is a 39-year-old female with past medical history of substance abuse, generalized anxiety disorder, major depressive disorder, and further psychiatric care who presents emerged part via ambulance complaining of dizziness for the past 4 days. She is also complaining of a headache, nausea and vomiting, chest pain and shortness of breath. States that she is also having some back pain, denying any fevers. She has multiple other complaints but states that primarily she is concerned of the headache and dizziness. Of note she had pneumonia earlier this year and states that she has since gotten over this. Denying any difficulty with gait or ataxia. Ambulance started her on some fluids and gave her Zofran on the way to the ED. Overall states I just have not felt like myself the past few days. Is not requiring oxygen at this time, vitals all within normal limits. No personal cardiac history or other pertinent medical history to report. States that her headache is diffuse and worse with movement of her neck, denies any recent migraines or tension headaches but states she has had this diagnosed in the past. No focal neurological deficit, no history of recent upper respiratory infection. No trauma, new medications. MD elicited complaint: dizziness Onset (ago): day(s) (4) Timing: gradual onset Severity: moderate Description: ongoing History of similar symptoms: No Exacerbating factors: movement/ambulation Relieving factors: remaining still Associated symptoms: Reports chest pain, headache(s), nausea and vomiting; Denies chills or palpitations Associated neuro symptoms: Deny numbness in extremities Related Data Previous Rx's ?Medication ?Instructions ?Recorded losartan 25 mg tablet 25 mg PO DAILY #90 tabs 03/02/24 buprenorphine 8 mg-naloxone 2 mg 1 tab sublingual TID 7 days #21 11/24/24 sublingual tablet tabs Allergies Allergy/AdvReac Type Severity Reaction Status Date / Time ketorolac (From Toradol) Allergy ADR-Seizure Verified 12/26/24 19:38 Penicillins Allergy ALGY-Rash Verified 12/26/24 19:38 Review of Systems General: Reports: 10 or more systems reviewed and unremarkable except in HPI and below Const: Denies: fever(s), chills or fatigue Eyes: Denies: change in vision ENMT: Denies: throat pain, ear or mastoid pain or nasal discharge Card: Reports: chest pain; Denies: palpitations, swelling of feet/ankles or lightheadedness Resp: Reports: dyspnea; Denies: productive cough or wheezing GI: Reports: nausea and vomiting; Denies: abdominal pain, diarrhea, constipation or hematochezia : Denies: flank pain, difficulty voiding, dysuria or urinary frequency Musc: Reports: neck pain; Denies: back pain or joint pain Skin/Breast: Denies: rash Neuro: Reports: headache(s) and dizziness; Denies: numbness in extremities, weakness in extremities, sensory changes, Slurred speech present or seizure-like activity PFSH ED PFSH: Medical History Cannabis dependence, uncomplicated Methamphetamine use disorder, moderate, in sustained remission, dependence Chronic post-traumatic stress disorder Major depressive disorder, recurrent severe without psychotic features Generalized anxiety disorder Psychiatric care Family History Other Bone cancer Breast cancer CAD (coronary artery disease) Diabetes Heart disease Hypertension Leukemia Social History Smoking and tobacco/nicotine status: never used tobacco/nicotine Alcohol intake: never Substance/Drug Use: current Substance/Drug use frequency: daily Adopted: No Caregiver/support person: No Lives independently: Yes Household members: significant other and children Housing: Manufactured/Mobile home Marital status: Number of children: 6 Number of grandchildren: 1 Highest education level completed: Some College, No Degree service: No Current occupational status: other Current occupation: working on disability Pets and animals: No Leisure activites: music, games and other Leisure activities details: Watch TV Sexually active: Yes Do you think of yourself as: Straight/Heterosexual Current gender identity: Female Fatoumata/Protestant: Adventist Special fatoumata needs: No Agree to transfusion: Yes Female Reproductive History: Para: 6 Spontaneous abortions: No Physical Exam Const: COMMON NORMALS: no acute distress, patient oriented x3 and no limitations GENERAL APPEARANCE: cooperative, well developed and anxious ORIENTATION/CONSCIOUSNESS: Yes awake, Yes oriented to person, Yes oriented to place and Yes oriented to time HENMT: COMMON NORMALS: normocephalic, atraumatic, hearing grossly normal bilaterally and moist oral mucous membranes HEAD & SCALP: normocephalic and atraumatic Eye: COMMON NORMALS: Equal, round and reactive pupils present, EOMs intact bilaterally and conjunctivae normal CONJUNCTIVA: Yes conjunctivae normal PUPIL: Yes Equal, round and reactive pupils present OTHER: Eyes track midline, no nystagmus Neck/C-Spine: COMMON NORMALS: full ROM, supple and no JVD OTHER: Negative Kernig's, negative Brudzinski Chest: COMMONS NORMALS: normal palpation of entire chest wall Resp: COMMON NORMALS: normal respiratory effort, No retractions, No use of accessory muscles and clear to auscultation bilaterally AUSCULTATION: clear to auscultation bilaterally Cardio: COMMON NORMALS: no JVD, regular rate, regular rhythm, No clicks present (Cardio), No murmurs present (Cardio) and No rub (Cardio) RATE: regular rate RHYTHM: regular rhythm GI: COMMON NORMALS: Normal to inspection, nondistended, normoactive bowel sounds present, Soft to palpation and non-tender AUSCULTATION: Yes normoactive bowel sounds PALPATION: Yes Soft to palpation RECTAL EXAM: deferred : COMMON NORMALS: Yes no CVA tenderness BLADDER/KIDNEY EXAM: Yes no CVA tenderness Back/Pelvis: COMMON NORMALS: no CVA tenderness, thoracic and lumbar spine normal to inspection, no thoracic nor lumbar tenderness and thoraco-lumbar ROM normal Extremity: COMMON NORMALS: normal to inspection, full ROM, capillary refill normal and no pedal edema Neuro: COMMON NORMALS: patient oriented x3, CN's II-XII intact bilaterally, moves all extremities, no focal motor deficits and no sensory deficits noted SENSORIUM/ORIENTATION: Yes oriented to person, Yes oriented to place and Yes oriented to time COORDINATION/BALANCE: [id number] test normal GAIT: Yes Unable to assess gait MOTOR EXAM: 5/5 motor strength present throughout, Pronator motor function not present and no asterixis COORDINATION: [id number] test normal Psych: COMMON NORMALS: mental status grossly normal and Normal thought process present THOUGHT PROCESS: Normal thought process present Skin: COMMON NORMALS: no rashes or lesions noted GENERAL SKIN EXAM: no rashes or lesions noted Course Vital Signs: Vital signs: Vital Signs Temperature 97.2 F L 12/26/24 19:33 Pulse Rate 103 H 12/26/24 19:43 Respiratory Rate 16 12/26/24 19:43 Blood Pressure 133/64 12/26/24 19:43 Pulse Oximetry 94 12/26/24 19:43 Oxygen Delivery Me thod Room Air 12/26/24 19:43 MDM - Dizziness Medical Decision Making This patient presented by ambulance for dizziness, headache, numerous other symptoms. History of psychological care. Vitals were normal on arrival. Her physical exam ultimately is unremarkable, there were no physical exam findings consistent with meningitis, no neurological deficits appreciated at time of exam. Primary complaint was the headache and nausea as well as dizziness. Her chest x-ray was unremarkable. EKG unremarkable. All of her lab work was normal including normal electrolytes, normal CBC, thyroid normal, and normal urinalysis. CT of the head did not show any intracranial abnormalities. I suspect that this is an atypical migraine causing her headache and dizziness, also level of anxiety exacerbating her symptoms. Rechecked her and informed her of her normal workup and she is just asking if she can have her headache treated. Will treat her migraine headache and have her follow-up closely with primary care, stable for discharge at this time discussed return precautions she verbalized understanding. Lab Data 12/26/24 19:41 12/26/24 19:41 Radiology Impressions Chest X-Ray 12/26/24 19:44 IMPRESSION: No acute findings. Head CT 12/26/24 19:44 IMPRESSION: No acute intracranial abnormality. Laboratory Results WBC 9.18 10^3/uL (3.29-11.43) 12/26/24 19:41 RBC 4.74 10^6/uL (3.85-5.65) 12/26/24 19:41 Hgb 14.20 g/dL (11.27-16.99) 12/26/24 19:41 Hct 41.5 % (36-47) 12/26/24 19:41 MCV 87.6 fl (85-98) 12/26/24 19:41 MCH 30.0 pg (27-33) 12/26/24 19:41 MCHC 34.2 g/dL (30-55) 12/26/24 19:41 RDW 11.9 % (12.1-15.1) L 12/26/24 19:41 Plt Count 247 10^3/cmm (157-399) 12/26/24 19:41 MPV 9.0 fL (7.4-10.4) 12/26/24 19:41 Neut % (Auto) 56.2 % 12/26/24 19:41 Lymph % (Auto) 33.8 % 12/26/24 19:41 [place] % (Auto) 4.8 % 12/26/24 19:41 Eos % (Auto) 3.9 % 12/26/24 19:41 Baso % (Auto) 1.0 % 12/26/24 19:41 Neut # (Auto) 5.16 10^3/uL (1.8-7.7) 12/26/24 19:41 Lymph # (Auto) 3.1 10^3/uL (0.8-4.8) 12/26/24 19:41 [place] # (Auto) 0.4 10^3/uL (0.2-0.9) 12/26/24 19:41 Eos # (Auto) 0.4 10^3/uL (0.0-0.8) 12/26/24 19:41 Baso # (Auto) 0.1 10^3/uL (0.0-0.1) 12/26/24 19: Nucleated RBC % (auto) 0 % 12/26/24 19: Nucleated RBCs # 0.0 /100WBC 12/26/24 19:41 D-Dimer <= 0.27 ug/mLFEU (0-0.59) 12/26/24 19:41 Sodium 139 mmol/L (136-145) 12/26/24 19:41 Potassium 3.8 mmol/L (3.5-5.1) 12/26/24 19:41 Chloride 102 mmol/L (98-107) 12/26/24 19:41 Carbon Dioxide 25 mmol/L (22-29) 12/26/24 19:41 Anion Gap 15.8 (5-19) 12/26/24 19:41 BUN 12 mg/dL (6-20) 12/26/24 19:41 Creatinine 0.8 mg/dL (0.5-0.9) 12/26/24 19:41 GFR Calculation 80.3 mL/min (90-130) L 12/26/24 19:41 Glucose 96 mg/dL (65-115) 12/26/24 19:41 Calculated Osmolality 288 mOsm/kg (285-295) 12/26/24 19:41 Calcium 9.3 mg/dL (8.5-10.5) 12/26/24 19:41 Magnesium 1.8 mg/dL (1.7-2.3) 12/26/24 19: Total Bilirubin 0.4 mg/dL (0.15-1.2) 12/26/24 19:41 AST 24 U/L (0-32) 12/26/24 19: ALT 25 U/L (0-33) 12/26/24 19:41 Alkaline Phosphatase 76 U/L (35-105) 12/26/24 19:41 C-Reactive Protein 12.7 mg/L (0.0-4.9) H 12/26/24 19:41 Total Protein 7.5 g/dL (6.6-8.7) 12/26/24 19: Albumin 4.4 g/dL (3.5-5.2) 12/26/24 19: Globulin 3.1 g/dL (1.3-4.6) 12/26/24 19: TSH 1.19 uIU/mL (0.27-4.20) 12/26/24 19:41 HCG, Qual Negative (Negative) 12/26/24 19:41 Urine Color Yellow (Yellow) 12/26/24 20:22 Urine Appearance Clear (CLEAR) 12/26/24 20:22 Urine pH 5.5 (5-7) 12/26/24 20:22 Ur Specific [place] 1.028 (1.005-1.030) 12/26/24 20:22 Urine Protein Negative (Negative) 12/26/24 20:22 Urine Glucose (UA) Negative (Normal) 12/26/24 20:22 Urine Ketones Negative (Negative) 12/26/24 20:22 Urine Blood Negative (Negative) 12/26/24 20:22 Urine Nitrate Negative (Negative) 12/26/24 20:22 Urine Bilirubin Negative (Negative) 12/26/24 20:22 Urine Urobilinogen 0.2 mg/dL (Negative) 12/26/24 20:22 Ur Leukocyte Esterase Negative (Negative) 12/26/24 20:22 Amorphous Sediment Not Reportable 12/26/24 20:22 All radiology interpretation(s) finalized by discharge Discharge Plan Discharge Patient Disposition: Home Clinical Impression: Anxiety Migraine headache Qualifiers: Migraine type: unspecified Status migrainosus presence: with status migrainosus Intractability: intractable Qualified Code(s): G43.911 - Migraine, unspecified, intractable, with status migrainosus Condition: Stable Prescriptions: No Action losartan 25 mg tablet 25 mg PO DAILY Qty: 90 3RF buprenorphine-naloxone 8-2 mg tablet, sublingual 1 tab SUBLINGUAL TID 7 Days Qty: 21 1RF Rx Instructions: One tablet three times per day Discharge Orders: Discharge ED (Routine); Ordered 12/26/24 Ordered By: Silvestre Del Castillo Patient Instructions: Migraine Headache (ED) Activity Restrictions/Additional Instructions: Drink plenty of fluids. Ibuprofen and Tylenol for headaches. Follow-up with your primary care provider as we discussed. Return with any worsening of chest pain, neurological symptoms, or any other concerns you have. Print Language: [place] Island[place] Coding Level of Care Code ED Network Communications Engineer for Brittnee Bowman
[2024-12-26 19:55] LABS: Basophils # 0.1 10^3/uL (0.0-0.1); Eosinophils # 0.4 10^3/uL (0.0-0.8); Eosinophils % 3.9 %; Hematocrit 41.5 % (36-47); Lymphocytes # 3.1 10^3/uL (0.8-4.8); Lymphocytes % 33.8 %; Mean Corpuscular HGB Conc 34.2 g/dL (30-55); Mean Corpuscular Volume 87.6 fl (85-98); Monocytes # 0.4 10^3/uL (0.2-0.9); Monocytes % 4.8 %; Neutrophils # 5.16 10^3/uL (1.8-7.7); Neutrophils % 56.2 %; Nucleated Red Blood Cells % 0 %; Platelet Count 247 10^3/cmm (157-399); Red Blood Count 4.74 10^6/uL (3.85-5.65); Red Cell Distribution Width 11.9 % (12.1-15.1); White Blood Count 9.18 10^3/uL (3.29-11.43)
[2024-12-26 20:01] LABS: D Dimer <= 0.27 ug/mLFEU (0-0.59)
[2024-12-26 20:06] LABS: HCG, Serum Qual Negative (Negative)
[2024-12-26 20:17] LABS: Alanine Aminotransferase 25 U/L (0-33); Albumin Level 4.4 g/dL (3.5-5.2); Alkaline Phosphatase 76 U/L (35-105); Anion Gap 15.8 (5-19); Aspartate Amino Transferase 24 U/L (0-32); Blood Urea Nitrogen 12 mg/dL (6-20); C Reactive Protein 12.7 mg/L (0.0-4.9); Calcium 9.3 mg/dL (8.5-10.5); Carbon Dioxide 25 mmol/L (22-29); Chloride 102 mmol/L (98-107); Creatinine Clr Calc Pharmacy 117.0221; Globulin 3.1 g/dL (1.3-4.6); Glomerular Filtration Rate 80.3 mL/min (90-130); Glucose 96 mg/dL (65-115); Magnesium 1.8 mg/dL (1.7-2.3); Osmolality Calculated 288 mOsm/kg (285-295); Potassium 3.8 mmol/L (3.5-5.1); Sodium 139 mmol/L (136-145); Thyroid Stimulating Hormone 1.19 uIU/mL (0.27-4.20); Total Bilirubin 0.4 mg/dL (0.15-1.2); Total Protein 7.5 g/dL (6.6-8.7)
[2024-12-26 20:27] LABS: Add Urine Microscopic? NO
[2024-12-26 20:29] LABS: Bilirubin Urine Negative (Negative); Blood Urine Negative (Negative); Glucose Urine UA Negative (Normal); Ketones Urine Negative (Negative); Leukocyte Esterase Urine Negative (Negative); Nitrate Urine Negative (Negative); Protein Urine Negative (Negative); Specific Gravity, Urine 1.028 (1.005-1.030); Urine Appearance Clear (CLEAR); Urine Color Yellow (Yellow); Urobilinogen Urine 0.2 mg/dL (Negative); pH Urine 5.5 (5-7)
[2024-12-26 20:46] LABS: Charge for UA Resulting for Rev
[2024-12-26] MEDS: dexamethasone 10 mg/mL INJ IVP (20:48)
[2024-12-26] MEDS: diphenhydrAMINE 50 mg/mL SDV 1mL IVP (20:48)
[2024-12-26] MEDS: metoclopramide 5 mg/mL SDV 2 mL 10 MG IVP (20:48)
[2024-12-26] MEDS: acetaminophen 500 mg Tablet 1000 MG PO (20:48)
[2024-12-26 21:11] LABS: Influenza A NEGATIVE (Negative); Influenza B NEGATIVE (Negative); Respiratory Syncytial Virus Ce NEGATIVE (Negative); SARS-CoV-2 PCR NEGATIVE (Negative)
[2024-12-26 21:21] VITALS: BP 118/72; PULSE 96; RESP 16; O2SAT 92
== END 2024-12-26 21:10 | disposition home or self-care (01) ==
PROVIDERS: Emergency Provider Physician Assistant
DX: F41.9 Anxiety disorder, unspecified (principal); G43.911 Migraine, unspecified, intractable, with status migrainosus
CPT/HCPCS: 70450; 71045; 80053; 81003; 83735; 84443; 84703; 85025; 85378; 86140; 87637; 93005; 96374; 96375; 99285; J1100; J1200; J2765

== ENCOUNTER 2025-01-08 21:30 | Emergency (ER) | payer MEDICAID, SELFPAY ==
[2025-01-04 14:24] VITALS: BP 137/101; BMI 40.5
[2025-01-08 21:32] VITALS: BP 154/90; PULSE 92; RESP 18; TEMP 36.8; O2SAT 95
--- NOTE | 2025-01-08 21:36 | XRR_ITS ---
PROCEDURE INFORMATION: Exam: XR Chest Exam date and time: 01/08/2025 9:48 PM Age: 39 years old Clinical indication: Shortness of breath TECHNIQUE: Imaging protocol: Radiologic exam of the chest. Views: 1 view. COMPARISON: CR (CHEST, ) 12/26/2024 7:46 PM FINDINGS: Lungs: Unremarkable. No consolidation. Pleural spaces: Unremarkable. No pleural effusion. No pneumothorax. Heart/Mediastinum: Unremarkable. No cardiomegaly. Bones/joints: Unremarkable. XR/XR chest 1V portable [id number] IMPRESSION: No visualized acute cardiopulmonary process.
--- NOTE | 2025-01-08 21:39 | ECG_ITS ---
[facility] Pat Name: Sarah Dooley Department: Room: Gender: Female Biodiesel Product Manager: : [id number] Requested By: Stella Stafford Order Number: [id number] Anastacia MD: Deven Saini M.D. Measurements Intervals [place] Rate: 90 P: 52 TX: 142 QRS: 42 QRSD: 104 T: 34 QT: 362 QTc: 445 Interpretive Statements SINUS RHYTHM INCOMPLETE RIGHT BUNDLE BRANCH BLOCK [90+ ms QRS DURATION, TERMINAL R IN V1/V2, 40+ ms S IN I/aVL/V4/V5/V6] NONSPECIFIC ST & T-WAVE ABNORMALITY Compared to ECG 12/26/2024 20:19:45 Incomplete right bundle-branch block now present Sinus bradycardia no longer present Sinus arrhythmia no longer present T-wave abnormality still present Electronically Signed On 01-09-2025 19:22:03 CDT by Deven Saini M.D. [email or web address]
[2025-01-08 21:55] LABS: Basophils # 0.1 10^3/uL (0.0-0.1); Basophils % 0.8 %; Eosinophils # 0.4 10^3/uL (0.0-0.8); Eosinophils % 4.7 %; Hematocrit 39.1 % (36-47); Lymphocytes # 2.8 10^3/uL (0.8-4.8); Lymphocytes % 31.3 %; Mean Corpuscular Hemoglobin 29.9 pg (27-33); Mean Corpuscular Volume 87.9 fl (85-98); Mean Platelet Volume 8.7 fL (7.4-10.4); Monocytes # 0.4 10^3/uL (0.2-0.9); Monocytes % 4.9 %; Neutrophils # 5.18 10^3/uL (1.8-7.7); Nucleated Red Blood Cells % 0 %; Platelet Count 269 10^3/cmm (157-399); Red Blood Count 4.45 10^6/uL (3.85-5.65); Red Cell Distribution Width 11.9 % (12.1-15.1); White Blood Count 8.94 10^3/uL (3.29-11.43)
[2025-01-08 21:56] VITALS: BP 156/115; PULSE 88; RESP 18; O2SAT 94
--- NOTE | 2025-01-08 22:04 | ED_ITS ---
HPI - Chest Pain 2 General: Chief Complaint: Chest Pain Stated Complaint: sob, chest pain, congestion Time Seen by Provider: 01/08/25 21:35 History of Present Illness: 39-year-old female presents emergency ro om with worsening cough. This been going on for some time now. She had been treated for pneumonia she says. She has been living in her mother's house with her small and she is concerned about that too. She does not have an appointment for another week or so. She has pain in her chest that goes into her back that is pleuritic in nature.. Related Data Previous Rx's ?Medication ?Instructions ?Recorded losartan 25 mg tablet 25 mg PO DAILY #90 tabs 07/18 buprenorphine 8 mg-naloxone 2 mg 1 tab sublingual TID #90 tabs 12/28/24 sublingual tablet albuterol sulfate 90 mcg/actuation 2 inh inhalation Q4 H PRN shortness 01/08/25 aerosol inhaler of breath or wheezing #6.7 g lori dexamethasone 6 mg tablet 6 mg PO DAILY 5 days #5 tabs 01/08/25 doxycycline hyclate 100 mg capsule 100 mg PO BID 7 day s #14 caps 01/08/25 Allergies Allergy/AdvReac Type Severity Reaction Status Date / Time ketorolac (From Toradol) Allergy ADR-Seizure Verified 01/08/25 21:39 Penicillins Allergy ALGY-Rash Verified 01/08/25 21:39 Review of Systems 2 Narrative: Constitutional symptoms: Negative except as documented in HPI. Skin symptoms: Negative except as documented in HPI. Eye symptoms: Negative except as documented in HPI. ENMT symptoms: Negative except as documented in HPI. Respiratory symptoms: Negative except as documented in HPI. Cardiovascular symptoms: Negative except as documented in HPI. Gastrointestinal symptoms: Negative except as documented in HPI. Genitourinary symptoms: Negative except as documented in HPI. Musculoskeletal symptoms: Negative except as documented in HPI. Neurologic symptoms: Negative except as documented in HPI. Psychiatric symptoms: Negative except as documented in HPI. Endocrine symptoms: Negative except as documented in HPI. PFSH ED 2 PFSH: Medical History Cannabis dependence, uncomplicated Methamphetamine use disorder, moderate, in sustained remission, dependence Chronic post-traumatic stress disorder Major depressive disorder, recurrent severe without psychotic features Generalized anxiety disorder Psychiatric care Family History Other Bone cancer Breast cancer CAD (coronary artery disease) Diabetes Heart disease Hypertension Leukemia Social History Smoking and tobacco/nicotine status: never used tobacco/nicotine Alcohol intake: never Substance/Drug Use: current Substance/Drug use frequency: daily Adopted: No Caregiver/support person: No Lives independently: Yes Household members: significant other and children Housing: Manufactured/Mobile home Marital status: Number of children: 6 Number of grandchildren: 1 Highest education level completed: Some College, No Degree service: No Current occupational status: other Current occupation: working on disability Pets and animals: No Leisure activites: music, games and other Leisure activities details: Watch TV Sexually active: Yes Do you think of yourself as: Straight/Heterosexual Current gender identity: Female Fatoumata/Yarsanism: Scientologist Special fatoumata needs: No Agree to transfusion: Yes Female Reproductive History: Para: 6 Spontaneous abortions: No Physical Exam 2 Narrative: EXAM NARRATIVE: General: Alert, no acute distress. Skin: Warm, dry. Head: Normocephalic, atraumatic. Neck: Supple, trachea midline. Eye: Extraocular movements are intact. Ears, nose, mouth and throat: mucosa moist. Cardiovascular: Regular, Normal peripheral perfusion. Respiratory: Lungs are clear to auscultation, respirations are non-labored, breath sounds are equal, Symmetrical chest wall expansion. Gastrointestinal: Soft, Nontender, Non distended Musculoskeletal: Normal ROM, no deformity. Neurological: Alert and oriented, No focal neurological deficit observed. Psychiatric: Cooperative, appropriate mood & affect. Course 2 Vital Signs: Vital signs: Vital Signs Temperature 98.3 F 01/08/25 21:32 Pulse Rate 91 01/08/25 23:06 Respiratory Rate 16 01/08/25 23:06 Blood Pressure 142/92 01/08/25 23:06 Pulse Oximetry 97 01/08/25 23:06 Oxygen Delivery Me thod Room Air 01/08/25 21:56 MDM - Chest Pain Medical Decision Making Differential diagnosis for patient with shortness of breath includes but is not limited to and based on the above HPI, review of systems and physical exam: Pneumonia. Bronchitis. Asthma or COPD with acute exacerbation. Acute coronary syndrome / [place]. Pulmonary embolism. Anxiety. Congestive heart failure. Viral infections including influenza and Covid-19. Atrial fibrillation. Anxiety. Pleural effusion. Pneumothorax. Orders placed to evaluate differential diagnosis based on the above differential, HPI and physical exam Lab Review: Laboratory results were reviewed and interpreted by myself the emergency room physician. No leukocytosis. No anemia. No renal failure. Flu COVID RSV are negative. Chest x-ray: No acute process. No infiltrate. No pneumothorax. This was reviewed and interpreted by myself the emergency room physician. I also reviewed the radiology report. I reviewed the patient's medical record. Reexamination: Patient remained stable. No increased work of breathing. No altered mental status. No focal motor deficits. Assessment and plan: Noncardiac chest pain Upper respiratory infection - Discharged home - Discussed plan with patient. Answered any questions. - Evaluation and treatment of this problem were appropriate in the emergency setting. Lab Data 01/08/25 21:45 01/08/25 21:45 Radiology Impressions Chest X-Ray 01/08/25 21:36 IMPRESSION: No visualized acute cardiopulmonary process. Laboratory Results WBC 8.94 10^3/uL (3.29-11.43) 01/08/25 21:45 RBC 4.45 10^6/uL (3.85-5.65) 01/08/25 21:45 Hgb 13.30 g/dL (11.27-16.99) 01/08/25 21:45 Hct 39.1 % (36-47) 01/08/25 21:45 MCV 87.9 fl (85-98) 01/08/25 21:45 MCH 29.9 pg (27-33) 01/08/25 21:45 MCHC 34.0 g/dL (30-55) 01/08/25 21:45 RDW 11.9 % (12.1-15.1) L 01/08/25 21:45 Plt Count 269 10^3/cmm (157-399) 01/08/25 21:45 MPV 8.7 fL (7.4-10.4) 01/08/25 21:45 Neut % (Auto) 58.0 % 01/08/25 21:45 Lymph % (Auto) 31.3 % 01/08/25 21:45 [place] % (Auto) 4.9 % 01/08/25 21:45 Eos % (Auto) 4.7 % 01/08/25 21:45 Baso % (Auto) 0.8 % 01/08/25 21:45 Neut # (Auto) 5.18 10^3/uL (1.8-7.7) 01/08/25 21:45 Lymph # (Auto) 2.8 10^3/uL (0.8-4.8) 01/08/25 21:45 [place] # (Auto) 0.4 10^3/uL (0.2-0.9) 01/08/25 21:45 Eos # (Auto) 0.4 10^3/uL (0.0-0.8) 01/08/25 21:45 Baso # (Auto) 0.1 10^3/uL (0.0-0.1) 01/08/25 21:45 Nucleated RBC % (auto) 0 % 01/08/25 21:45 Nucleated RBCs # 0.0 /100WBC 01/08/25 21:45 Sodium 141 mmol/L (136-145) 01/08/25 21:45 Potassium 3.6 mmol/L (3.5-5.1) 01/08/25 21:45 Chloride 104 mmol/L (98-107) 01/08/25 21:45 Carbon Dioxide 26 mmol/L (22-29) 01/08/25 21:45 Anion Gap 14.6 (5-19) 01/08/25 21:45 BUN 6 mg/dL (6-20) 01/08/25 21:45 Creatinine 0.8 mg/dL (0.5-0.9) 01/08/25 21:45 GFR Calculation 80.3 mL/min (90-130) L 01/08/25 21:45 Glucose 99 mg/dL (65-115) 01/08/25 21:45 Calculated Osmolality 290 mOsm/kg (285-295) 01/08/25 21:45 Calcium 9.3 mg/dL (8.5-10.5) 01/08/25 21:45 Total Bilirubin 0.2 mg/dL (0.15-1.2) 01/08/25 21:45 AST 50 U/L (0-32) H 01/08/25 21:45 ALT 65 U/L (0-33) H 01/08/25 21:45 Alkaline Phosphatase 90 U/L (35-105) 01/08/25 21:45 Total Protein 7.6 g/dL (6.6-8.7) 01/08/25 21:45 Albumin 4.4 g/dL (3.5-5.2) 01/08/25 21:45 Globulin 3.2 g/dL (1.3-4.6) 01/08/25 21:45 Influenza A (PCR) Negative (Negative) 01/08/25 21:53 Influenza Type B (PCR) Negative (Negative) 01/08/25 21:53 RSV (PCR) Negative (Negative) 01/08/25 21:53 SARS-CoV-2 (PCR) Negative (Negative) 01/08/25 21:53 All radiology interpretation(s) finalized by discharge Discharge Plan Discharge Patient Disposition: Home Clinical Impression: Upper respiratory tract infection Condition: Stable Prescriptions: New doxycycline hyclate 100 mg capsule 100 mg PO BID 7 Days Qty: 14 0RF dexamethasone 6 mg tablet 6 mg PO DAILY 5 Days Qty: 5 0RF albuterol sulfate 90 mcg/actuation HFA aerosol inhaler 2 inh inhalation Q4H PRN (Reason: shortness of breath or wheezing) Qty: 6.7 0RF Rx Instructions: Please provide patient with a spacer No Action losartan 25 mg tablet 25 mg PO DAILY Qty: 90 3RF buprenorphine-naloxone 8-2 mg tablet, sublingual 1 tab SUBLINGUAL TID Qty: 90 0RF Rx Instructions: One tablet three times per day Discharge Orders: Discharge ED (Routine); Ordered 01/08/25 Ordered By: Stella Sanchez Discharge Diet: As Directed Discharge Activity: Increase activity as tolerated Patient Instructions: How to Use a Metered-Dose Inhaler and a Spacer (ED), Opioid Safety, Pain Management Activity Restrictions/Additional Instructions: Thank you for choosing [facility] for your healthcare needs today. Please realize this is an emergency room and that we are providing you with a medical screening exam and this may not be complete and all inclusive of all the testing and or work up that you may need to determine your ailment or severity of your illness. You have been screened and evaluated and felt safe for discharge. Health conditions do change or evolve sometimes and as such it is important that you follow up with your Primary Doctor to be re checked, 3-5 days is a general good time frame for follow up. You are always welcome to return to the ED for re assessment if your symptoms are worsening or you have new concerns Print Language: Chinese Coding Level of Care Code ED Head Machine Feeder for Brittnee Bowman
[2025-01-08 22:10] LABS: Alanine Aminotransferase 65 U/L (0-33); Albumin Level 4.4 g/dL (3.5-5.2); Alkaline Phosphatase 90 U/L (35-105); Anion Gap 14.6 (5-19); Aspartate Amino Transferase 50 U/L (0-32); Blood Urea Nitrogen 6 mg/dL (6-20); Calcium 9.3 mg/dL (8.5-10.5); Carbon Dioxide 26 mmol/L (22-29); Chloride 104 mmol/L (98-107); Creatinine Clr Calc Pharmacy 117.0221; Globulin 3.2 g/dL (1.3-4.6); Glomerular Filtration Rate 80.3 mL/min (90-130); Glucose 99 mg/dL (65-115); Osmolality Calculated 290 mOsm/kg (285-295); Potassium 3.6 mmol/L (3.5-5.1); Sodium 141 mmol/L (136-145); Total Bilirubin 0.2 mg/dL (0.15-1.2); Total Protein 7.6 g/dL (6.6-8.7)
[2025-01-08 22:41] LABS: Influenza A NEGATIVE (Negative); Influenza B NEGATIVE (Negative); Respiratory Syncytial Virus Ce NEGATIVE (Negative); SARS-CoV-2 PCR NEGATIVE (Negative)
[2025-01-08] MEDS: doxycycline 100 mg Tablet PO (23:01)
[2025-01-08] MEDS: dexamethasone 10 mg/mL INJ IM (23:01)
[2025-01-08 23:06] VITALS: BP 142/92; PULSE 91; RESP 16; O2SAT 97
== END 2025-01-08 23:07 | disposition home or self-care (01) ==
PROVIDERS: Emergency Provider Emergency Medicine
DX: J06.9 Acute upper respiratory infection, unspecified (principal); Z11.52 Encounter for screening for COVID-19
CPT/HCPCS: 36415; 71045; 80053; 85025; 87637; 93005; 96372; 99285; J1100; J9999

== ENCOUNTER → 2025-02-13 11:59 | Outpatient (BNVA) | payer OTHER, SELFPAY ==
[2025-01-04 14:24] VITALS: BP 137/101; BMI 40.5
== END ==
PROVIDERS: Visit Provider Nurse Practitioner Psychiatric/Mental Health
DX: Z79.899 Other long term (current) drug therapy (principal)
CPT/HCPCS: 80307

== ENCOUNTER 2025-03-20 19:48 | Emergency (ER) | payer MEDICAID, SELFPAY ==
[2025-01-04 14:24] VITALS: BP 137/101; BMI 40.5
[2025-03-20 19:57] VITALS: BP 142/76; PULSE 87; RESP 18; TEMP 37.3; O2SAT 97; BMI 38.7
--- NOTE | 2025-03-20 19:57 | XRR_ITS ---
PROCEDURE INFORMATION: Exam: XR Chest Exam date and time: 03/20/2025 8:02 PM Age: 39 years old Clinical indication: Shortness of breath; Additional info: SOB TECHNIQUE: Imaging protocol: Radiologic exam of the chest. Views: 1 view. COMPARISON: CR XR chest 1V portable [id number] 01/08/2025 9:48 PM FINDINGS: Lungs: Unremarkable. No consolidation. Pleural spaces: Unremarkable. No pleural effusion. No pneumothorax. Heart/Mediastinum: Unremarkable. No cardiomegaly. Bones/joints: Unremarkable. XR/XR chest 1V portable [id number] IMPRESSION: No acute findings.
--- NOTE | 2025-03-20 20:46 | ED_ITS ---
HPI - URI/Sore Throat General: Chief Complaint: Upper Respiratory Infection Stated Complaint: sob, back pain, congestion Time Seen by Provider: 03/20/25 20:38 Source: patient Mode of arrival: ambulatory Limitations: no limitations History of Present Illness: Patient is a 39-year-old female here for chronic cough since August (7 months ago). States she is having productive sputum. Cough seems to be worse at night. She feels like she intermittently has trouble breathing. Patient has been seen multiple multiple times for this and tells me that she is continually getting diagnosed with pneumonia and has been on countless rounds of antibiotics. She has also been on rounds of steroids as well as inhalers. She states she will improve for short amounts of time before she gets sick again. S he has not a smoker. Does not vape. Significant other does smoke but he states he smokes outside so limited secondhand exposure. No known history of asthma. She is not having any systemic symptoms today. She does report postnasal drainage worse with lying down. MD elicited complaint: cough and nasal congestion Onset (ago): month(s) Consistency: constant Severity: moderate Description of mucous: clear and yellow Able to tolerate fluids by mouth: Yes Exacerbating factors: supine positioning Relieving factors: nothing Associated symptoms: Reports nasal congestion; Deny abdominal pain, chills, chest pain, fever(s) or headache(s) Treatments prior to arrival: antibiotics Related Data Previous Rx's ?Medication ?Instructions ?Recorded losartan 25 mg tablet 25 mg PO DAILY #90 tabs 07/18 albuterol sulfate 90 mcg/actuation 2 inh inhalation Q4 H PRN shortness 01/08/25 aerosol inhaler of breath or wheezing #6.7 g lori buprenorphine 8 mg-naloxone 2 mg 1 tab sublingual TID #90 tabs 02/01/25 sublingual tablet hydroxyzine pamoate 50 mg capsule 50 mg PO BID PRN anx iety #30 caps 02/13/25 lurasidone 20 mg tablet 20 mg PO .9 pm #30 tabs 01/24 12/19 benzonatate 100 mg capsule 100 mg PO TID PRN cough #20 caps 03/20/25 fluticasone propionate 110 1 inh inhalation BID #12 gr ams 03/20/25 mcg/actuation HFA aerosol inhaler Allergies Allergy/AdvReac Type Severity Reaction Status Date / Time ketorolac (From Toradol) Allergy ADR-Seizure Verified 03/20/25 20:05 Penicillins Allergy ALGY-Rash Verified 03/20/25 20:05 Review of Systems Const: Reports: fatigue; Denies: fever(s), chills, body aches or malaise ENMT: Reports: nasal discharge and nasal congestion; Denies: throat pain or odynophagia Card: Denies: chest pain, palpitations, irregular heart rhythm, edema, swelling of feet/ankles, lightheadedness, syncope or pre-syncope Resp: Reports: productive cough and chest congestion; Denies: wheezing or pain on inspiration GI: Denies: abdominal pain Musc: Denies: neck pain, back pain, extremity pain or joint swelling Neuro: Denies: headache(s), numbness in extremities, weakness in extremities, sensory changes or dizziness PFSH ED PFSH: Medical History Cyclothymic disorder Cannabis dependence, uncomplicated Methamphetamine use disorder, moderate, in sustained remission, dependence Chronic post-traumatic stress disorder Generalized anxiety disorder Psychiatric care Family History Other Bone cancer Breast cancer CAD (coronary artery disease) Diabetes Heart disease Hypertension Leukemia Social History Smoking and tobacco/nicotine status: current every day tobacco/nicotine user Alcohol intake: never Substance/Drug Use: current Substance/Drug use frequency: daily Adopted: No Caregiver/support person: No Lives independently: Yes Household members: significant other and children Housing: Manufactured/Mobile home Marital status: Number of children: 6 Number of grandchildren: 1 Highest education level completed: Some College, No Degree service: No Current occupational status: other Current occupation: working on disability Pets and animals: No Leisure activites: music, games and other Leisure activities details: Watch TV Sexually active: Yes Do you think of yourself as: Straight/Heterosexual Current gender identity: Female Fatoumata/Yarsani: Mu-Ism Special fatoumata needs: No Agree to transfusion: Yes Female Reproductive History: Para: 6 Spontaneous abortions: No Physical Exam 2 Const: COMMON NORMALS: no acute distress, patient oriented x3, no limitations, alert and well nourished GENERAL APPEARANCE: cooperative NUTRITIONAL APPEARANCE: overweight HENMT: FACE & SINUS: normal facial exam Chest: COMMONS NORMALS: normal inspection of the chest and normal palpation of entire chest wall Resp: COMMON NORMALS: normal respiratory effort and clear to auscultation bilaterally AUSCULTATION: clear to auscultation bilaterally OTHER: bronchitis sounding cough Cardio: COMMON NORMALS: regular rate and regular rhythm RATE: regular rate RHYTHM: regular rhythm Extremity: COMMON NORMALS: no clubbing, cyanosis or edema, no calf tenderness and no pedal edema GENERAL: Yes normal exam except as noted Neuro: COMMON NORMALS: patient oriented x3 SENSORIUM/ORIENTATION: Yes alert Course Vital Signs: Vital signs: Vital Signs Temperature 99.1 F 03/20/25 19:57 Pulse Rate 108 H 03/20/25 21:38 Respiratory Rate 18 03/20/25 19:57 Blood Pressure 142/76 03/20/25 19:57 Pulse Oximetry 94 03/20/25 21:38 Oxygen Delivery Me thod Room Air 03/20/25 20:47 MDM - URI/Sore Throat Medical Decision Making CXR is unremarkable. Her last two chest x-rays on file have also been unremarkable. She did have a chest x-ray back in August that questioned a small infiltrate. At this point there is no added benefit to continuing her on antibiotics or steroids. Will give her something to help with the cough. Suspect some degree of asthmatic component. She states she has seen her PCP several times who just keeps putting her on additional antibiotics. Will place referral to pulmonology for further workup of chronic bronchitis. Medical Records I reviewed the patient's medical records. Lab Data Radiology Impressions Chest X-Ray 03/20/25 19:57 IMPRESSION: No acute findings. All radiology interpretation(s) finalized by discharge Discharge Plan Discharge Patient Disposition: Home Clinical Impression: Chronic bronchitis Condition: Stable Prescriptions: New fluticasone propionate 110 mcg/actuation HFA aerosol inhaler 1 inh inhalation BID Qty: 12 0RF benzonatate 100 mg capsule 100 mg PO TID PRN (Reason: cough) Qty: 20 0RF Rx Instructions: Can take 1-2 tabs up to TID. Max 600mg/day. No Action lurasidone 20 mg tablet 20 mg PO .9 pm Qty: 30 2RF Rx Instructions: Take one tablet at 9 pm-must administer with food (at least 350 calories) hydroxyzine pamoate 50 mg capsule 50 mg PO BID PRN (Reason: anxiety) Qty: 30 2RF Rx Instructions: Take one capsule twice per day as needed for anxiety losartan 25 mg tablet 25 mg PO DAILY Qty: 90 3RF buprenorphine-naloxone 8-2 mg tablet, sublingual 1 tab SUBLINGUAL TID Qty: 90 2RF Rx Instructions: One tablet three times per day albuterol sulfate 90 mcg/actuation HFA aerosol inhaler 2 inh inhalation Q4H PRN (Reason: shortness of breath or wheezing) Qty: 6.7 0RF Rx Instructions: Please provide patient with a spacer Discharge Orders: Discharge ED (Routine); Ordered 03/20/25 Ordered By: Lindy Hilliard Patient Instructions: Chronic Bronchitis (DC) Activity Restrictions/Additional Instructions: As we discussed, we will place a classification case manager referral to get you set up with pulmonology for further evaluation and treatment of your bronchitis. In the meantime, you may continue to follow-up with your primary care provider. Your chest x-ray today was unremarkable. Print Language: German Coding Level of Care Code ED Chief Of Pediatric Urology for Brittnee Bowman
[2025-03-20 20:47] VITALS: PULSE 107; O2SAT 98
[2025-03-20] MEDS: benzonatate 100 mg Capsule 200 MG PO (21:36)
[2025-03-20] MEDS: promethazine-cod syrup 6.25-10mg/5 mL UDC PO (21:36)
[2025-03-20 21:38] VITALS: PULSE 108; O2SAT 94
--- NOTE | 2025-03-22 10:13 | DCPLANNER ---
faxed referral packet to [facility] pulmonology
== END 2025-03-20 21:41 | disposition home or self-care (01) ==
PROVIDERS: Emergency Provider Physician Assistant
DX: J42 Unspecified chronic bronchitis (principal); Z77.22 Contact with and (suspected) exposure to environmental tobacco smoke (acute) (chronic); Z87.01 Personal history of pneumonia (recurrent); Z88.0 Allergy status to penicillin; Z88.5 Allergy status to narcotic agent
CPT/HCPCS: 71045; 99283; J9999

== ENCOUNTER 2025-04-03 15:18 | Emergency (ER) | payer MEDICAID, SELFPAY ==
[2025-01-04 14:24] VITALS: BP 137/101; BMI 40.5
[2025-04-03 15:40] VITALS: BP 134/80; PULSE 88; RESP 17; TEMP 36.7; O2SAT 98; BMI 39.9
--- NOTE | 2025-04-03 16:04 | ED_ITS ---
Documented by User: BYRON Bell 04/03/25 16:50 HPI - GI Bleed 2 General: Chief complaint: GI Bleed Stated complaint: bright red bleeding anally Time Seen by Provider: 04/03/25 15:27 Source: patient Mode of arrival: ambulatory Limitations: no limitations History of Present Illness: Patient is a 39-year-old female presents to ED today with a complaint of bright red blood per rectum starting yesterday and into today. She states she has had approximately 6 stools with bright red blood that she describes as approximately a cup each. She does have a picture on her phone and I would quantify as maybe 2 tablespoons of bright red blood. She is complaining of diffuse abdominal cramping. She had earlier reported no fevers however tells me she did have a fever of 102 yesterday. She is not having any vaginal bleeding. No urinary symptoms. Patient is anxious that this could indicate colon cancer as she does have a family history of this. She has never underwent colonoscopy. Her vital signs are stable upon arrival. MD complaint: blood on toilet paper, blood streaked stool and gross hematochezia Onset (ago): day(s) Pain Consistency: constant Severity: moderate Relieving factors: none Exacerbating factors: none Associated symptoms: Reports no associated symptoms, abdominal pain, fever(s) and nausea; Denies chills, headache(s), malaise or vomiting Treatments Prior to Arrival: none Related Data Previous Rx's ?Medication ?Instructions ?Recorded losartan 25 mg tablet 25 mg PO DAILY #90 tabs 07/18 albuterol sulfate 90 mcg/actuation 2 inh inhalation Q4 H PRN shortness 01/08/25 aerosol inhaler of breath or wheezing #6.7 g lori benzonatate 100 mg capsule 100 mg PO TID PRN cough #20 caps 03/20/25 fluticasone propionate 110 1 inh inhalation BID #12 gr ams 03/20/25 mcg/actuation HFA aerosol inhaler buprenorphine 8 mg-naloxone 2 mg 1 tab sublingual TID #90 tabs 03/27/25 sublingual tablet hydroxyzine pamoate 50 mg capsule 50 mg PO BID PRN anx iety #30 caps 03/27/25 Allergies Allergy/AdvReac Type Severity Reaction Status Date / Time ketorolac (From Toradol) Allergy ADR-Seizure Verified 03/27/25 09:54 Penicillins Allergy ALGY-Rash Verified 03/27/25 09:54 Review of Systems 2 Const: Reports: fever(s); Denies: chills, body aches, fatigue or malaise Card: Denies: chest pain Resp: Denies: dyspnea GI: Reports: abdominal pain, nausea and hematochezia; Denies: vomiting, hematemesis, fecal incontinence, pain on defecation, rectal pain or melena : Denies: flank pain or dysuria Musc: Denies: back pain Neuro: Denies: headache(s) or dizziness PFSH ED 2 PFSH: Medical History Cyclothymic disorder Cannabis dependence, uncomplicated Methamphetamine use disorder, moderate, in sustained remission, dependence Chronic post-traumatic stress disorder Generalized anxiety disorder Psychiatric care Family History Other Bone cancer Breast cancer CAD (coronary artery disease) Diabetes Heart disease Hypertension Leukemia Social History Smoking and tobacco/nicotine status: current every day tobacco/nicotine user Alcohol intake: never Substance/Drug Use: current Substance/Drug use frequency: daily Adopted: No Caregiver/support person: No Lives independently: Yes Household members: significant other and children Housing: Manufactured/Mobile home Marital status: Number of children: 6 Number of grandchildren: 1 Highest education level completed: Some College, No Degree service: No Current occupational status: other Current occupation: working on disability Pets and animals: No Leisure activites: music, games and other Leisure activities details: Watch TV Sexually active: Yes Do you think of yourself as: Straight/Heterosexual Current gender identity: Female Fatoumata/Congregational: Cheondoism Special fatoumata needs: No Agree to transfusion: Yes Female Reproductive History: Para: 6 Spontaneous abortions: No Physical Exam 2 Const: COMMON NORMALS: no acute distress, patient oriented x3, no limitations, alert and well nourished GENERAL APPEARANCE: cooperative NUTRITIONAL APPEARANCE: obese ORIENTATION/CONSCIOUSNESS: Yes awake, Yes oriented to person, Yes oriented to place and Yes oriented to time HENMT: COMMON NORMALS: normocephalic and atraumatic HEAD & SCALP: normal to inspection, normocephalic and atraumatic Resp: COMMON NORMALS: normal respiratory effort and clear to auscultation bilaterally AUSCULTATION: clear to auscultation bilaterally Cardio: COMMON NORMALS: regular rate and regular rhythm RATE: regular rate RHYTHM: regular rhythm GI: COMMON NORMALS: Normal to inspection, nondistended, normoactive bowel sounds present, Soft to palpation, No hepatosplenomegaly present and no masses INSPECTION: Yes normal to inspection AUSCULTATION: Yes normoactive bowel sounds PALPATION: Yes Soft to palpation, Yes Tenderness to palpation present (GI) (diffusely), Yes Guarding due to palpation present (GI), No Rigid due to palpation and Yes No hepatosplenomegaly present RECTAL EXAM: visual inspection normal, no fissure noted, heme negative stool and no hemorrhoids noted : COMMON NORMALS: Yes no CVA tenderness BLADDER/KIDNEY EXAM: Yes no CVA tenderness Back/Pelvis: COMMON NORMALS: no CVA tenderness and thoracic and lumbar spine normal to inspection Neuro: COMMON NORMALS: patient oriented x3 SENSORIUM/ORIENTATION: Yes alert, Yes oriented to person, Yes oriented to place and Yes oriented to time Skin: COMMON NORMALS: no rashes or lesions noted GENERAL SKIN EXAM: no rashes or lesions noted Course 2 ED course: Care will be transferred to BISHNU Giang at shift change. Vitals are stable. H/H is unchanged from previous. Hemoccult is negative. Vital Signs: Vital signs: Vital Signs Temperature 98.1 F 04/03/25 15:40 Pulse Rate 88 04/03/25 15:40 Respiratory Rate 17 04/03/25 15:40 Blood Pressure 134/80 04/03/25 15:40 Pulse Oximetry 98 04/03/25 15:40 Oxygen Delivery Me thod Room Air 04/03/25 15:40 MDM - GI Bleed Lab Data 04/03/25 15:50 04/03/25 15:50 Radiology Impressions Abdomen/Pelvis CT 04/03/25 16:14 IMPRESSION: Correlate with urinalysis to exclude cystitis. However no other acute intra-abdominal or intrapelvic process can be seen. Incidental/chronic findings. COMMENTS: Consistent with the [employer]'s Incidental Findings Committee white paper (J Am Clint Radiol 2018): Any incidental renal lesion less than 1 cm or classified as too small to characterize, or any incidental cystic renal lesion characterized as simple-appearing, is likely benign. No follow-up imaging is recommended for these lesions per consensus recommendations based on imaging criteria. Laboratory Results WBC 6.31 10^3/uL (3.29-11.43) 04/03/25 15:50 RBC 4.51 10^6/uL (3.85-5.65) 04/03/25 15:50 Hgb 13.30 g/dL (11.27-16.99) 04/03/25 15:50 Hct 40.2 % (36-47) 04/03/25 15:50 MCV 89.1 fl (85-98) 04/03/25 15:50 MCH 29.5 pg (27-33) 04/03/25 15:50 MCHC 33.1 g/dL (30-55) 04/03/25 15:50 RDW 12.3 % (12.1-15.1) 04/03/25 15:50 Plt Count 233 10^3/cmm (157-399) 04/03/25 15:50 MPV 9.2 fL (7.4-10.4) 04/03/25 15:50 Neut % (Auto) 43.6 % 04/03/25 15:50 Lymph % (Auto) 43.1 % 04/03/25 15:50 Mccracken % (Auto) 6.2 % 04/03/25 15:50 Eos % (Auto) 5.7 % 04/03/25 15:50 Baso % (Auto) 1.1 % 04/03/25 15:50 Neut # (Auto) 2.75 10^3/uL (1.8-7.7) 04/03/25 15:50 Lymph # (Auto) 2.7 10^3/uL (0.8-4.8) 04/03/25 15:50 Mccracken # (Auto) 0.4 10^3/uL (0.2-0.9) 04/03/25 15:50 Eos # (Auto) 0.4 10^3/uL (0.0-0.8) 04/03/25 15:50 Baso # (Auto) 0.1 10^3/uL (0.0-0.1) 04/03/25 15:50 Nucleated RBC % (auto) 0 % 04/03/25 15:50 Nucleated RBCs # 0.0 /100WBC 04/03/25 15:50 PT 13.10 SECONDS (12.1-14.9) 04/03/25 15:50 INR 0.93 (0.8-1.2) 04/03/25 15:50 APTT 28.3 SECONDS (23.9-36.7) 04/03/25 15:50 Sodium 140 mmol/L (136-145) 04/03/25 15:50 Potassium 3.6 mmol/L (3.5-5.1) 04/03/25 15:50 Chloride 103 mmol/L (98-107) 04/03/25 15:50 Carbon Dioxide 24 mmol/L (22-29) 04/03/25 15:50 Anion Gap 16.6 (5-19) 04/03/25 15:50 BUN 10 mg/dL (6-20) 04/03/25 15:50 Creatinine 0.6 mg/dL (0.5-0.9) 04/03/25 15:50 GFR Calculation 111.9 mL/min (90-130) 04/03/25 15:50 Glucose 98 mg/dL (65-115) 04/03/25 15:50 Calculated Osmolality 289 mOsm/kg (285-295) 04/03/25 15:50 Calcium 9.2 mg/dL (8.5-10.5) 04/03/25 15:50 Total Bilirubin 0.2 mg/dL (0.15-1.2) 04/03/25 15:50 AST 29 U/L (0-32) 04/03/25 15:50 ALT 33 U/L (0-33) 04/03/25 15:50 Alkaline Phosphatase 70 U/L (35-105) 04/03/25 15:50 Total Protein 6.9 g/dL (6.6-8.7) 04/03/25 15:50 Albumin 4.3 g/dL (3.5-5.2) 04/03/25 15:50 Globulin 2.6 g/dL (1.3-4.6) 04/03/25 15:50 Ser , Semi-Qnt < 1.00 mIU/mL 04/03/25 15:50 Urine Color Yellow (Yellow) 04/03/25 16:38 Urine Appearance Clear (CLEAR) 04/03/25 16:38 Urine pH 5.5 (5-7) 04/03/25 16:38 Ur Specific [place] 1.024 (1.005-1.030) 04/03/25 16:38 Urine Protein Negative (Negative) 04/03/25 16:38 Urine Glucose (UA) Negative (Normal) 04/03/25 16:38 Urine Ketones Negative (Negative) 04/03/25 16:38 Urine Blood Trace (Negative) A 04/03/25 16:38 Urine Nitrate Negative (Negative) 04/03/25 16:38 Urine Bilirubin Negative (Negative) 04/03/25 16:38 Urine Urobilinogen 0.2 mg/dL (Negative) 04/03/25 16:38 Ur Leukocyte Esterase Trace (Negative) A 04/03/25 16:38 Urine RBC 0-2 /hpf (0-2) 04/03/25 16:38 Urine WBC 6-10 /hpf (0-5) 04/03/25 16:38 Ur Squamous Epith Cells 6-10 /hpf (0-5) 04/03/25 16:38 Amorphous Sediment Not Reportable 04/03/25 16:38 Urine Bacteria Trace /hpf (NONE) 04/03/25 16:38 Hyaline Casts 0.40 /lpf 04/03/25 16:38 Discharge Plan Discharge Patient Disposition: Home Clinical Impression: BRBPR (bright red blood per rectum) Condition: Stable Prescriptions: No Action buprenorphine-naloxone 8-2 mg tablet, sublingual 1 tab SUBLINGUAL TID Qty: 90 3RF Rx Instructions: One tablet three times per day hydroxyzine pamoate 50 mg capsule 50 mg PO BID PRN (Reason: anxiety) Qty: 30 2RF Rx Instructions: Take one capsule twice per day as needed for anxiety losartan 25 mg tablet 25 mg PO DAILY Qty: 90 3RF albuterol sulfate 90 mcg/actuation HFA aerosol inhaler 2 inh inhalation Q4H PRN (Reason: shortness of breath or wheezing) Qty: 6.7 0RF Rx Instructions: Please provide patient with a spacer fluticasone propionate 110 mcg/actuation HFA aerosol inhaler 1 inh inhalation BID Qty: 12 0RF benzonatate 100 mg capsule 100 mg PO TID PRN (Reason: cough) Qty: 20 0RF Rx Instructions: Can take 1-2 tabs up to TID. Max 600mg/day. Discharge Orders: Discharge ED (Routine); Ordered 04/03/25 Ordered By: Raleigh Ortiz Referrals: Saba Jarvis FNP-C [Primary Care Provider, [facility]] Discharge Diet: Advance as tolerated Discharge Activity: Increase activity as tolerated Patient Instructions: Acute Diarrhea (ED), Pain Management Activity Restrictions/Additional Instructions: Continue to monitor your symptoms closely. Slowly increase your solid food intake as tolerated Follow-up with primary care, call in 2 days with an update of symptoms and to discuss a recheck Return to the emergency department if any rapid worsening symptoms and as needed. Print Language: Turkmen Coding Level of Care Code ED Animal Health Technician for Chg Fwd Documented by User: BISHNU Chamorro 04/03/25 18:34 HPI - GI Bleed 2 General: Chief complaint: GI Bleed Stated complaint: bright red bleeding anally Time Seen by Provider: 04/03/25 15:27 Related Data Previous Rx's ?Medication ?Instructions ?Recorded losartan 25 mg tablet 25 mg PO DAILY #90 tabs 07/18 albuterol sulfate 90 mcg/actuation 2 inh inhalation Q4 H PRN shortness 01/08/25 aerosol inhaler of breath or wheezing #6.7 g lori benzonatate 100 mg capsule 100 mg PO TID PRN cough #20 caps 03/20/25 fluticasone propionate 110 1 inh inhalation BID #12 gr ams 03/20/25 mcg/actuation HFA aerosol inhaler buprenorphine 8 mg-naloxone 2 mg 1 tab sublingual TID #90 tabs 03/27/25 sublingual tablet hydroxyzine pamoate 50 mg capsule 50 mg PO BID PRN anx iety #30 caps 03/27/25 Allergies Allergy/AdvReac Type Severity Reaction Status Date / Time ketorolac (From Toradol) Allergy ADR-Seizure Verified 03/27/25 09:54 Penicillins Allergy ALGY-Rash Verified 03/27/25 09:54 PFS ED 2 PFS: Medical History Cyclothymic disorder Cannabis dependence, uncomplicated Methamphetamine use disorder, moderate, in sustained remission, dependence Chronic post-traumatic stress disorder Generalized anxiety disorder Psychiatric care Family History Other Bone cancer Breast cancer CAD (coronary artery disease) Diabetes Heart disease Hypertension Leukemia Social History Smoking and tobacco/nicotine status: current every day tobacco/nicotine user Alcohol intake: never Substance/Drug Use: current Substance/Drug use frequency: daily Adopted: No Caregiver/support person: No Lives independently: Yes Household members: significant other and children Housing: Manufactured/Mobile home Marital status: Number of children: 6 Number of grandchildren: 1 Highest education level completed: Some College, No Degree service: No Current occupational status: other Current occupation: working on disability Pets and animals: No Leisure activites: music, games and other Leisure activities details: Watch TV Sexually active: Yes Do you think of yourself as: Straight/Heterosexual Current gender identity: Female Fatoumata/Congregational: Cheondoism Special fatoumata needs: No Agree to transfusion: Yes Course 2 ED course: Care will be transferred to BISHNU Giang at shift change. Vitals are stable. H/H is unchanged from previous. Hemoccult is negative. Assumed care at 1700. Awaiting UA and CTAP. Vital Signs: Vital signs: Vital Signs Temperature 98.1 F 04/03/25 15:40 Pulse Rate 88 04/03/25 15:40 Respiratory Rate 17 04/03/25 15:40 Blood Pressure 134/80 04/03/25 15:40 Pulse Oximetry 98 04/03/25 15:40 Oxygen Delivery Me thod Room Air 04/03/25 15:40 MDM - GI Bleed Medical Decision Making Patient is a 39-year-old female presents to ED today with a complaint of bright red blood per rectum starting yesterday and into today. She states she has had approximately 6 stools with bright red blood that she describes as approximately a cup each. No leukocytosis, white blood cell count is 6.31. No indication of anemia, hemoglobin is 13.3, consistent with her previous labs 3 months ago. INR is noted to be 0.93. There are no electrolyte, renal, or hepatic abnormalities noted. Serum is unremarkable. UA with trace leukocyte esterase and trace blood, trace bacteria noted. CTAP shows no acute intra-abdominal or intrapelvic process that can be seen. Discussed these findings with patient. Patient did not have any further episodes of diarrhea while in the emergency department. Discussed with patient follow-up for possible scope given her strong family history of colon cancer. Patient reports that her primary care is already setting the follow-up and referral for further evaluation. Discussed with patient possibility of a viral illness causing the diarrhea. Encourage patient to continue to monitor his symptoms closely. Recommend she follow-up with primary care, call in 2 days with an update of symptoms and to discuss a recheck. Return precautions provided. Patient states understanding and has no further questions or concerns at this time. Differential Diagnosis Likely hemorrhoids, infectious diarrhea, Lower gastrointestinal hemorrhage and melena Medical Records I reviewed the patient's medical records. Lab Data I reviewed the patient's lab results. 04/03/25 15:50 04/03/25 15:50 Radiology Impressions Abdomen/Pelvis CT 04/03/25 16:14 IMPRESSION: Correlate with urinalysis to exclude cystitis. However no other acute intra-abdominal or intrapelvic process can be seen. Incidental/chronic findings. COMMENTS: Consistent with the [place]'s Incidental Findings Committee white paper (J Am Clint Radiol 2018): Any incidental renal lesion less than 1 cm or classified as too small to characterize, or any incidental cystic renal lesion characterized as simple-appearing, is likely benign. No follow-up imaging is recommended for these lesions per consensus recommendations based on imaging criteria. Laboratory Results WBC 6.31 10^3/uL (3.29-11.43) 04/03/25 15:50 RBC 4.51 10^6/uL (3.85-5.65) 04/03/25 15:50 Hgb 13.30 g/dL (11.27-16.99) 04/03/25 15:50 Hct 40.2 % (36-47) 04/03/25 15:50 MCV 89.1 fl (85-98) 04/03/25 15:50 MCH 29.5 pg (27-33) 04/03/25 15:50 MCHC 33.1 g/dL (30-55) 04/03/25 15:50 RDW 12.3 % (12.1-15.1) 04/03/25 15:50 Plt Count 233 10^3/cmm (157-399) 04/03/25 15:50 MPV 9.2 fL (7.4-10.4) 04/03/25 15:50 Neut % (Auto) 43.6 % 04/03/25 15:50 Lymph % (Auto) 43.1 % 04/03/25 15:50 Mccracken % (Auto) 6.2 % 04/03/25 15:50 Eos % (Auto) 5.7 % 04/03/25 15:50 Baso % (Auto) 1.1 % 04/03/25 15:50 Neut # (Auto) 2.75 10^3/uL (1.8-7.7) 04/03/25 15:50 Lymph # (Auto) 2.7 10^3/uL (0.8-4.8) 04/03/25 15:50 Mccracken # (Auto) 0.4 10^3/uL (0.2-0.9) 04/03/25 15:50 Eos # (Auto) 0.4 10^3/uL (0.0-0.8) 04/03/25 15:50 Baso # (Auto) 0.1 10^3/uL (0.0-0.1) 04/03/25 15:50 Nucleated RBC % (auto) 0 % 04/03/25 15:50 Nucleated RBCs # 0.0 /100WBC 04/03/25 15:50 PT 13.10 SECONDS (12.1-14.9) 04/03/25 15:50 INR 0.93 (0.8-1.2) 04/03/25 15:50 APTT 28.3 SECONDS (23.9-36.7) 04/03/25 15:50 Sodium 140 mmol/L (136-145) 04/03/25 15:50 Potassium 3.6 mmol/L (3.5-5.1) 04/03/25 15:50 Chloride 103 mmol/L (98-107) 04/03/25 15:50 Carbon Dioxide 24 mmol/L (22-29) 04/03/25 15:50 Anion Gap 16.6 (5-19) 04/03/25 15:50 BUN 10 mg/dL (6-20) 04/03/25 15:50 Creatinine 0.6 mg/dL (0.5-0.9) 04/03/25 15:50 GFR Calculation 111.9 mL/min (90-130) 04/03/25 15:50 Glucose 98 mg/dL (65-115) 04/03/25 15:50 Calculated Osmolality 289 mOsm/kg (285-295) 04/03/25 15:50 Calcium 9.2 mg/dL (8.5-10.5) 04/03/25 15:50 Total Bilirubin 0.2 mg/dL (0.15-1.2) 04/03/25 15:50 AST 29 U/L (0-32) 04/03/25 15:50 ALT 33 U/L (0-33) 04/03/25 15:50 Alkaline Phosphatase 70 U/L (35-105) 04/03/25 15:50 Total Protein 6.9 g/dL (6.6-8.7) 04/03/25 15:50 Albumin 4.3 g/dL (3.5-5.2) 04/03/25 15:50 Globulin 2.6 g/dL (1.3-4.6) 04/03/25 15:50 Ser , Semi-Qnt < 1.00 mIU/mL 04/03/25 15:50 Urine Color Yellow (Yellow) 04/03/25 16:38 Urine Appearance Clear (CLEAR) 04/03/25 16:38 Urine pH 5.5 (5-7) 04/03/25 16:38 Ur Specific [place] 1.024 (1.005-1.030) 04/03/25 16:38 Urine Protein Negative (Negative) 04/03/25 16:38 Urine Glucose (UA) Negative (Normal) 04/03/25 16:38 Urine Ketones Negative (Negative) 04/03/25 16:38 Urine Blood Trace (Negative) A 04/03/25 16:38 Urine Nitrate Negative (Negative) 04/03/25 16:38 Urine Bilirubin Negative (Negative) 04/03/25 16:38 Urine Urobilinogen 0.2 mg/dL (Negative) 04/03/25 16:38 Ur Leukocyte Esterase Trace (Negative) A 04/03/25 16:38 Urine RBC 0-2 /hpf (0-2) 04/03/25 16:38 Urine WBC 6-10 /hpf (0-5) 04/03/25 16:38 Ur Squamous Epith Cells 6-10 /hpf (0-5) 04/03/25 16:38 Amorphous Sediment Not Reportable 04/03/25 16:38 Urine Bacteria Trace /hpf (NONE) 04/03/25 16:38 Hyaline Casts 0.40 /lpf 04/03/25 16:38 All radiology interpretation(s) finalized by discharge Discharge Plan Discharge Patient Disposition: Home Clinical Impression: BRBPR (bright red blood per rectum) Condition: Stable Prescriptions: No Action buprenorphine-naloxone 8-2 mg tablet, sublingual 1 tab SUBLINGUAL TID Qty: 90 3RF Rx Instructions: One tablet three times per day hydroxyzine pamoate 50 mg capsule 50 mg PO BID PRN (Reason: anxiety) Qty: 30 2RF Rx Instructions: Take one capsule twice per day as needed for anxiety losartan 25 mg tablet 25 mg PO DAILY Qty: 90 3RF albuterol sulfate 90 mcg/actuation HFA aerosol inhaler 2 inh inhalation Q4H PRN (Reason: shortness of breath or wheezing) Qty: 6.7 0RF Rx Instructions: Please provide patient with a spacer fluticasone propionate 110 mcg/actuation HFA aerosol inhaler 1 inh inhalation BID Qty: 12 0RF benzonatate 100 mg capsule 100 mg PO TID PRN (Reason: cough) Qty: 20 0RF Rx Instructions: Can take 1-2 tabs up to TID. Max 600mg/day. Discharge Orders: Discharge ED (Routine); Ordered 04/03/25 Ordered By: Raleigh Ortiz Referrals: Saba Jarvis FNP-C [Primary Care Provider, [facility]] Discharge Diet: Advance as tolerated Discharge Activity: Increase activity as tolerated Patient Instructions: Acute Diarrhea (ED), Pain Management Activity Restrictions/Additional Instructions: Continue to monitor your symptoms closely. Slowly increase your solid food intake as tolerated Follow-up with primary care, call in 2 days with an update of symptoms and to discuss a recheck Return to the emergency department if any rapid worsening symptoms and as needed. Print Language: Turkmen Coding Level of Care Code ED Animal Health Technician for Brittnee Bowman
[2025-04-03 16:14] LABS: Basophils # 0.1 10^3/uL (0.0-0.1); Basophils % 1.1 %; Eosinophils # 0.4 10^3/uL (0.0-0.8); Eosinophils % 5.7 %; Hematocrit 40.2 % (36-47); Lymphocytes # 2.7 10^3/uL (0.8-4.8); Lymphocytes % 43.1 %; Mean Corpuscular HGB Conc 33.1 g/dL (30-55); Mean Corpuscular Hemoglobin 29.5 pg (27-33); Mean Corpuscular Volume 89.1 fl (85-98); Mean Platelet Volume 9.2 fL (7.4-10.4); Monocytes # 0.4 10^3/uL (0.2-0.9); Monocytes % 6.2 %; Neutrophils # 2.75 10^3/uL (1.8-7.7); Neutrophils % 43.6 %; Nucleated Red Blood Cells % 0 %; Platelet Count 233 10^3/cmm (157-399); Red Blood Count 4.51 10^6/uL (3.85-5.65); Red Cell Distribution Width 12.3 % (12.1-15.1); White Blood Count 6.31 10^3/uL (3.29-11.43)
--- NOTE | 2025-04-03 16:14 | CTR_ITS ---
PROCEDURE INFORMATION: Exam: CT Abdomen And Pelvis With Contrast Exam date and time: 04/03/2025 4:50 PM Age: 39 years old Clinical indication: Abdominal pain; Periumbilical; Prior surgery; Surgery date: 6+ months; Surgery type: Gb, appy; Additional info: Abdominal pain, bloody stools TECHNIQUE: Imaging protocol: Computed tomography of the abdomen and pelvis with contrast. Radiation optimization: All CT scans at this facility use at least one of these dose optimization techniques: automated exposure control; mA and/or kV adjustment per patient size (includes targeted exams where dose is matched to clinical indication); or iterative reconstruction. Contrast material: OMNIPAQUE 350; Contrast volume: 100 ml; Contrast route: INTRAVENOUS (IV); COMPARISON: CT kidney stone [id number] 03/17/2024 7:24 PM RADIATION DOSE METRICS: Total DLP (mGy-cm): 1126.93 FINDINGS: Liver: Mild hepatic steatosis. Gallbladder and biliary ducts: Gallbladder is surgically absent. Pancreas: Normal. No ductal dilation. Spleen: Normal. No splenomegaly. Adrenal glands: Normal. No mass. Kidneys and ureters: Renal cysts. No hydronephrosis. Stomach and bowel: Unremarkable. No obstruction. No mucosal thickening. Appendix: The appendix is surgically absent. 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 Vasculature: Unremarkable. No abdominal aortic aneurysm. Lymph nodes: Unremarkable. No enlarged lymph nodes. Urinary bladder: The urinary bladder is underdistended which limits its complete evaluation. However there is some perivesicular stranding. Reproductive: Unremarkable as visualized. Bones/joints: Unremarkable. No acute fracture. Soft tissues: Unremarkable. CT/CT abdomen pelvis w con* [id number] IMPRESSION: Correlate with urinalysis to exclude cystitis. However no other acute intra-abdominal or intrapelvic process can be seen. Incidental/chronic findings. COMMENTS: Consistent with the [employer]'s Incidental Findings Committee white paper (J Am Clint Radiol 2018): Any incidental renal lesion less than 1 cm or classified as too small to characterize, or any incidental cystic renal lesion characterized as simple-appearing, is likely benign. No follow-up imaging is recommended for these lesions per consensus recommendations based on imaging criteria.
[2025-04-03 16:29] LABS: INR 0.93 (0.8-1.2)
[2025-04-03 16:30] LABS: Partial Thromboplastin Time 28.3 SECONDS (23.9-36.7)
[2025-04-03] MEDS: sodium chloride 0.9% 1,000 ML 999 ML IV (16:31)
[2025-04-03 16:41] LABS: Alanine Aminotransferase 33 U/L (0-33); Albumin Level 4.3 g/dL (3.5-5.2); Alkaline Phosphatase 70 U/L (35-105); Anion Gap 16.6 (5-19); Aspartate Amino Transferase 29 U/L (0-32); Blood Urea Nitrogen 10 mg/dL (6-20); Calcium 9.2 mg/dL (8.5-10.5); Carbon Dioxide 24 mmol/L (22-29); Chloride 103 mmol/L (98-107); Creatinine Clr Calc Pharmacy 156.0295; Globulin 2.6 g/dL (1.3-4.6); Glomerular Filtration Rate 111.9 mL/min (90-130); Glucose 98 mg/dL (65-115); Osmolality Calculated 289 mOsm/kg (285-295); Potassium 3.6 mmol/L (3.5-5.1); Sodium 140 mmol/L (136-145); Total Bilirubin 0.2 mg/dL (0.15-1.2); Total Protein 6.9 g/dL (6.6-8.7)
[2025-04-03 16:43] LABS: HCG Quantitative < 1.00 mIU/mL
[2025-04-03] MEDS: iohexol 350 mg/mL 500 mL Btl (per mL) IV (16:53)
[2025-04-03] MEDS: ondansetron 2 mg/ML SDV 2 mL 4 MG IVP (17:03)
[2025-04-03] MEDS: morphine 4 mg/mL SDV 1 mL IVP (17:03)
[2025-04-03 17:22] LABS: Bilirubin Urine Negative (Negative); Blood Urine Trace (Negative); Glucose Urine UA Negative (Normal); Ketones Urine Negative (Negative); Leukocyte Esterase Urine Trace (Negative); Nitrate Urine Negative (Negative); Protein Urine Negative (Negative); Specific Gravity, Urine 1.024 (1.005-1.030); Urine Appearance Clear (CLEAR); Urine Color Yellow (Yellow); Urobilinogen Urine 0.2 mg/dL (Negative); pH Urine 5.5 (5-7)
[2025-04-03 17:29] LABS: Add Urine Microscopic? YES; Bacteria Urine Trace /hpf; RBC Urine 0-2 /hpf (0-2)
[2025-04-03 17:43] LABS: Add Urine Culture? No
[2025-04-03 18:56] VITALS: BP 140/79; PULSE 62; O2SAT 98
== END 2025-04-03 18:57 | disposition home or self-care (01) ==
PROVIDERS: Emergency Provider Physician Assistant; PCP Nurse Practitioner Family
DX: K62.5 Hemorrhage of anus and rectum (principal); Z80.0 Family history of malignant neoplasm of digestive organs; Z79.899 Other long term (current) drug therapy; F17.200 Nicotine dependence, unspecified, uncomplicated
CPT/HCPCS: 36415; 74177; 80053; 81001; 84702; 85025; 85610; 85730; 96361; 96374; 96375; 99285; J2270; J2405; J7030

== ENCOUNTER 2025-05-10 20:22 | Emergency (ER) | payer MEDICAID, SELFPAY ==
[2025-01-04 14:24] VITALS: BP 137/101; BMI 40.5
--- OUTSIDE RECORDS SUMMARY | 2025-05-10 20:32 | XMS_ITS | Clinical Summary ---
Author Organization [facility] Address [address] Attn: Epic [place] [address] Care Team Providers Care Casting Carrier Name Role Phone Charley Jarvis MD Primary Care Provider +1- [phone] Allergies Active Allergy Reactions Criticality Noted Date Comments Ketorolac Hives High 08/07/2010 Penicillins Unknown 02/21/2008 Silk Hives High 04/10/2020 Tramadol Headache Low 09/27/2015 Medications buprenorphine-n alOXone (SUBOXONE) 8-2 mg Tablet, Sublingual TAKE ONE TABLET BY MOUTH UNDER THE TONGUE THREE TIMES DAILY for SEVEN DAYS Active zolpidem (AMBIEN) 10 mg tabletIndicatio ns:Psychophysio logical insomnia Take 1 Tablet (10 mg) by mouth nightly as needed for Insomnia. 90 Tablet 1 02/16/2025 Active gabapentin (NEURONTIN) 300 mg capsule Take 1 Capsule (300 mg) by mouth 3 times daily. 270 Capsule 3 02/16/2025 Active losartan (COZAAR) 25 mg tablet Take 1 Tablet (25 mg) by mouth daily. 100 Tablet 3 02/16/2025 Active ondansetron (ZOFRAN ODT) 4 mg Tablet, Rapid Dissolve DISSOLVE 1 TABLET(4 MG) ON THE TONGUE EVERY 8 HOURS NEEDED FOR NAUSEA OR VOMITING. DISSOLVE ON TONGUE THEN SWALLOW 21 Tablet 03/15/2025 Active Active Problems Problem Noted Date Diagnosed Date History of gastric ulcer 01/16/2025 Chronic tension-type headache, not intractable 0 01/16/2025 Neck pain 01/16/2025 Chronic midline thoracic back pain 01/16/2025 Chronic midline low back pain with bilateral sci atica 01/16/2025 Obesity (BMI 35.0-39.9 without comorbidity) 12/24 Essential hypertension 04/07/2024 Posttraumatic stress disorder 04/17/2019 Seizure 04/17/2019 Moderate recurrent major depression 08/25/2017 Generalized anxiety disorder 06/30/2017 Sciatica Resolved Problems Problem Noted Date Diagnosed Date Resolved Date Depression 09/28/2014 02/16/2025 Encounters Date Type Department Care Team Description 05/08/2025 External Device Data [facility]STRACTION Provider, Abstract 04/19/[address] [address] Charley Jarvis MD Information 04/11/[address] [address] Charley Jarvis MD Appointment Correction 04/10/2025 External Device Data [facility] Provider, Abstract 04/06/2025 Orders Only [facility] Health Information Management [place] [address] [place] [address] Provider, Abstract 04/06/[address] [address] Charley Jarvis MD 04/05/[address] [address] Charley Jarvis MD Medical Records 04/05/[address] [address] Charley Jarvis MD Information 03/23/[address] [address] Charley Jarvis MD Needs Form Or Letter Filled Out 03/15/2025 External Device Data [facility] Provider, Abstract 03/14/2025 External Device Data [facility] Provider, Abstract 03/13/2025 External Device Data [facility] Provider, Abstract 03/13/[address] [address] Charley Jarvis MD 02/20/[address] [address] Charley Jarvis MD Question; Patient Communication; Patient Communication 02/19/[address] [address] Charley Jarvis MD Medication Refill 02/16/2025 11:20 AM CDT Ancillary Procedure [address] [address] Charley Jarvis MD Chronic cough 02/16/2025 10:20 AM CDT Office Visit [address] [address] Charley Jarvis MD Chronic cough (Primary Dx); Essential hypertension; Moderate recurrent major depression (CMS/HCC); Psychophysiological insomnia; Urinary frequency; Seizure (CMS/HCC) 02/16/2025 Results Follow-Up [address] [address] Charley Jarvis MD XR CHEST PA AND LATERAL 2 VW, POC URINALYSIS DIPSTICK AUTOMATED, BASIC METABOLIC PANEL, MICROALBUMIN/CREATINI NE RATIO, RANDOM UR from Last 3 Months Family History Medical History Relation Name Comments Bone Cancer Mother Diabetes Mother Hypertension Mother Relation Name Status Comments Mother Alive Social History Tobacco Use Types Packs/Day Years Used Date Smoking Tobacco: Never Smokeless Tobacco: Never Alcohol Use Standard Drinks/Week Comments No 0 (1 standard drink = 0.6 oz pur e alcohol) Comments No Sex and Gender Information Value Date Recorded Sex Assigned at Not on file 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 Gender Identity Not on file Sexual Orientation Not on file Last Filed Vital Signs Vital Sign Reading Time Taken Comments Blood Pressure 134/82 02/16/2025 10:15 AM CDT Pulse 92 02/16/2025 10:15 AM CDT Temperature 36.2 C (97.2 F) 02/16/2025 10:15 AM CDT Respiratory Rate 18 02/16/2025 10:1 5 AM CDT Oxygen Saturation 95% 02/16/2025 10: 15 AM CDT Inhaled Oxygen Concentration - - Weight 108.6 kg (239 lb 6.4 oz) 025 10:15 AM CDT Height 165.1 cm (5' 5 ) 02/16/2025 10:1 5 AM CDT Body Mass Index 39.84 02/16/2025 10:15 AM CDT Plan of Treatment Health Maintenance Due Date Last Done Comments Pre-Diabetes and Diabetes Screening 1986 HPV VACCINES (1 - 3-dose series) 2001 DTAP/TDAP/TD VACCINES (4 - Tdap) 2005 07/05/1987, 01/08/1987, 1986 HEPATITIS B VACCINES (1 of 3 - 19+ 3-dose series) 2005 Preventative Visit-Managed Medicaid 2005 HPV/Cotest (21-29) 2007 CERVICAL CANCER SCREENING 2016 HPV/Cotest (30-65) 2016 PAP SMEAR 2016 INFLUENZA VACCINE (#1) 2025 01/19/2025, 2024 Procedures Procedure Name Priority Date/Time Associated Diagnosis Comments COMPREHENSIVE METABOLIC PANEL Routine 04/03/2025 10:03 AM CDT PROTIME-INR Routine 04/03/2025 MICROALBUMIN/CREATINI NE RATIO, RANDOM UR Routine 02/16/2025 11:35 AM CDT Essential hypertension POC URINALYSIS DIPSTICK AUTOMATED Routine 02/16/2025 11:09 AM CDT Urinary frequency BASIC METABOLIC PANEL Routine 02/16/2025 11:09 AM CDT Essential hypertension XR CHEST PA AND LATERAL 2 VW Routine 02/16/2025 11:03 AM CDT Chronic cough from Last 3 Months Results * COMPREHENSIVE METABOLIC PANEL (04/03/2025 10:03 AM CDT) Blood us Abstract Provider CHEMISTRY ORDERABLES Final Res ult * PROTIME-INR (04/03/2025) Pathologist [facility] ABSTRACTED PROTIME 13.1 ABSTRACTED INR 0.93 Blood 04/03/2025 us Abstract Provider HEMATOLOGY ORDERABLES Final Re sult * MICROALBUMIN/CREATININE RATIO, RANDOM UR (02/16/2025 11:35 AM CDT) [facility] CREATININE, URINE 157 20 - 275 mg/dL [facility] ALBUMIN, URINE 1.5 See Note: mg/dL [facility] Comment: Reference Range: Reference Range Not established ALB/CREAT RATIO, URINE 10 <30 mg/g creat [facility] Comment: The ADA defines abnormalities in albumin excretion as follows: Albuminuria Category Result (mg/g creatinine) Normal to Mildly increased <30 Moderately increased 30-299 Severely increased > OR = 300 The ADA recommends that at least two of three specimens collected within a 3-6 month period be abnormal before considering a patient to be within a diagnostic category. Test Performed at: [facility] [address] [place] [address] Opal Carrillo MD Urine URINE SPECIMEN OBTAINED BY CLEAN CATCH PROCEDURE / Unknown 02/16/2025 11:35 AM CDT 02/17/2025 3:34 AM CDT us Charley Jarvis MD URINE ORDERABLES Final Res ult [facility] [phone] [facility] [id number] [place] [phone] * (ABNORMAL) POC URINALYSIS DIPSTICK AUTOMATED (02/16/2025 11:09 AM CDT) COLOR UA POC Yellow Pale to Dark Yellow [facility] CLARITY UA POC Clear Clear, Other [facility] GLUCOSE UA POC Negative Negative, Normal [facility] BILIRUBIN UA POC Negative Negative [facility] KETONES UA POC Negative Negative [facility] SPECIFIC GRAVITY UA POC 1.025 1.000 - 1.030 [facility] BLOOD UA POC 1+(A) Negative [facility] PH UA POC 7.0 5.0 - 8.0 [facility] PROTEIN UA POC Negative Negative [facility] UROBILINOGEN UA POC 0.2 <2.0 mg/dL [facility] NITRITE UA POC Negative Negative [facility] LEUKOCYTE ESTERASE UA POC Negative Negative [facility] KIT LOT NUMBER POC [phone] [facility] KIT EXP DATE POC 10/24/[address] [facility] Urine 02/16/2025 11:0 9 AM CDT Charley Jarvis MD POINT OF CARE TESTING Yamilka l Result [facility] CLIA# [id number] [address] [place] [id number] * BASIC METABOLIC PANEL (02/16/2025 11:09 AM CDT) GLUCOSE 92 65 - 99 mg/dL [facility] Comment: Fasting reference interval BUN 7 7 - 25 mg/dL [facility] CREATININE 0.79 0.50 - 0.97 mg/dL [facility] GFR 98 > OR = 60 mL/min/1.7 3m2 [facility] BUN/CREAT RATIO SEE NOTE: 6 - 22 (calc) [facility] Comment: Not Reported: BUN and Creatinine are within reference range. SODIUM 138 135 - 146 mmol/L [facility] POTASSIUM 4.0 3.5 - 5.3 mmol/L [facility] CHLORIDE 105 98 - 110 mmol/L [facility] CO2 25 20 - 32 mmol/L [facility] CALCIUM 9.6 8.6 - 10.2 mg/dL [facility] Comment: Test Performed at: [facility] [id number] [address] Opal Carrillo MD Blood BLOOD SPECIMEN / Unknown 02/16/2025 11:09 AM CDT 02/16/2025 11:09 AM CDT Charley Jarvis MD CHEMISTRY ORDERABLES Final Result [facility] [phone] [facility] [id number] [phone] * XR CHEST PA AND LATERAL 2 VW (02/16/2025 11:03 AM CDT) Anatomical Region Laterality Modality Chest Computed Radiogr aphy 02/16/2025 11:0 3 AM CDT Impressions 02/16/2025 12:42 PM CDT IMPRESSION: See below. Exam: XR CHEST PA AND LATERAL 2 VW Date/Time of Exam: 02/16/2025 11:03 AM Reason For Exam: See Diagnosis. Diagnosis: Chronic cough. Findings: The lungs are clear. No pleural effusion or pneumothorax. Mediastinal contours are unremarkable. Narrative Procedure Note Lionel Castro MD - 02/16/2025 IMPRESSION: See below. Exam: XR CHEST PA AND LATERAL 2 VW Date/Time of Exam: 02/16/2025 11:03 AM Reason For Exam: See Diagnosis. Diagnosis: Chronic cough. Findings: The lungs are clear. No pleural effusion or pneumothorax. Mediastinal contours are unremarkable. Charley Jarvis MD DIAGNOSTIC IMAGING ORDERAB LES Final Result from Last [id number] [place] [address] [facility] [employer] [facility] Care Teams Casting Carrier Relationship Specialty Start Date End Date Charley Jarvis MD [address] [place] [phone] PCP - General Family Practice 01/16/25
--- OUTSIDE RECORDS SUMMARY | 2025-05-10 20:32 | XMS_ITS | Encounter Summary ---
Author Organization [facility] Address [address] [place] [address] Care Team Providers Care Sustainability Project Coordinator Name Role Phone Charley Jarvis MD Primary Care Provider +- [phone] Reason for Visit * Reason Comments Information Encounter Details Date Type Department Care Team (Late st Contact Info) Description 04/05/2025 Telephone 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 Will keep upcoming HFU ov. Called Tammy for records being faxed. No further questions. * Telephone Encounter - Shavonne Johnson - 04/05/2025 3:18 PM CDT Copied from [facility] #[id number]. Topic: Established Patient Care >> Apr 05, 2025 3:15 PM Shavonne Rodas wrote: Is the patient established with a [facility] provider? Yes, select appropriate option in Discharge Facility SmartList Caller Name: Sarah Dooley Callback Number: [phone] (mobile) Call Notes: ER f/u, scheduled Wednesday due to transportation. She went to ER for blood in stool. It has not happened anymore but still feeling discomfort. Patient is Rising Risk Where was the patient discharged from? Emergency Department (ED/ER) Is there availability to schedule the patient within 5 calendar days of discharge? Yes, but patientwants to schedule an in person appointment outside 5 day guideline documented in this encounter Plan of Treatment Not on file documented as of this encounter Visit Diagnoses Not on filedocumented in this encounter Additional Health Concerns Assessment Noted Time PHQ-9 Depression Total Score: 2 01/17/20 10:40 AM CDT documented as of this encounter Care Teams Sustainability Project Coordinator Relationship Specialty Start Date End Date Charley Jarvis MD [address] [place] [phone] PCP - General Family Practice 01/16/25 documented as of this encounter
--- OUTSIDE RECORDS SUMMARY | 2025-05-10 20:32 | XMS_ITS | Encounter Summary ---
Author Organization [facility] Address [address] [place] [address] Care Team Providers Care Sonar Subsystem Equipment Operator Name Role Phone Charley Jarvis MD Primary Care Provider [phone]- [phone] Encounter Details Date Type Department Care Team (Late st Contact Info) Description 05/08/2025 External Device Data [facility] ABSTRACTION Provider, Abstract NO ADDRESS ON FILE Social History Tobacco Use Types Packs/Day Years Used Date Smoking Tobacco: Never Smokeless Tobacco: Never Alcohol Use Standard Drinks/Week Comments No 0 (1 standard drink = 0.6 oz pur e alcohol) Comments No Sex and Gender Information Value Date Recorded Sex Assigned at Not on file Legal Sex 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
[2025-05-10 20:36] VITALS: BP 122/78; PULSE 88; RESP 17; TEMP 37.1; O2SAT 96; BMI 39.8
--- NOTE | 2025-05-10 21:30 | ED_ITS ---
HPI - Headache General: Chief Complaint: Headache Stated Complaint: Migran 2 days neck and spine pain lumb on neck Time Seen by Provider: 05/10/25 21:27 History of Present Illness: Patient complains of 2 months of pain in the muscles at the base of her neck and the top of her back. Her has been rubbing on it. They have had time to get to the doctor so she checked herself in for this and her daughter and for some congestion. No focal motor deficits. No deformities. No bony tenderness. Related Data Previous Rx's ?Medication ?Instructions ?Recorded losartan 25 mg tablet 25 mg PO DAILY #90 tabs 0507/18 albuterol sulfate 90 mcg/actuation 2 inh inhalation Q4 H PRN shortness 01/08/25 aerosol inhaler of breath or wheezing #6.7 g lori benzonatate 100 mg capsule 100 mg PO TID PRN cough #20 caps 03/20/25 fluticasone propionate 110 1 inh inhalation BID #12 gr ams 03/20/25 mcg/actuation HFA aerosol inhaler buprenorphine 8 mg-naloxone 2 mg 1 tab sublingual TID #90 tabs 03/27/25 sublingual tablet hydroxyzine pamoate 50 mg capsule 50 mg PO BID PRN anx iety #30 caps 03/27/25 cyclobenzaprine 10 mg tablet 10 mg PO Q8H PRN muscle s pasm #20 05/10/25 tabs dexamethasone 6 mg tablet 6 mg PO DAILY 5 days #5 tabs 05/10/25 diclofenac sodium 50 mg 50 mg PO BID PRN pain #14 ta bs 05/10/25 tablet,delayed release Allergies Allergy/AdvReac Type Severity Reaction Status Date / Time ketorolac (From Toradol) Allergy ADR-Seizure Verified 05/10/25 15:02 Penicillins Allergy ALGY-Rash Verified 05/10/25 15:02 Review of Systems Narrative: Constitutional symptoms: Negative except as documented in HPI. Skin symptoms: Negative except as documented in HPI. Eye symptoms: Negative except as documented in HPI. ENMT symptoms: Negative except as documented in HPI. Respiratory symptoms: Negative except as documented in HPI. Cardiovascular symptoms: Negative except as documented in HPI. Gastrointestinal symptoms: Negative except as documented in HPI. Genitourinary symptoms: Negative except as documented in HPI. Musculoskeletal symptoms: Negative except as documented in HPI. Neurologic symptoms: Negative except as documented in HPI. Psychiatric symptoms: Negative except as documented in HPI. Endocrine symptoms: Negative except as documented in HPI. PFSH ED PFSH: Medical History (Updated 05/10/25 @ 21:32 by Stella Sanchez MD) Cyclothymic disorder Cannabis dependence, uncomplicated Methamphetamine use disorder, moderate, in sustained remission, dependence Chronic post-traumatic stress disorder Generalized anxiety disorder Psychiatric care Family History Other Bone cancer Breast cancer CAD (coronary artery disease) Diabetes Heart disease Hypertension Leukemia Social History Smoking and tobacco/nicotine status: current every day tobacco/nicotine user Alcohol intake: never Substance/Drug Use: current Substance/Drug use frequency: daily Adopted: No Caregiver/support person: No Lives independently: Yes Household members: significant other and children Housing: Manufactured/Mobile home Marital status: Number of children: 6 Number of grandchildren: 1 Highest education level completed: Some College, No Degree service: No Current occupational status: other Current occupation: working on disability Pets and animals: No Leisure activites: music, games and other Leisure activities details: Watch TV Sexually active: Yes Do you think of yourself as: Straight/Heterosexual Current gender identity: Female Fatoumata/Christianity: Presybeterian Special fatoumata needs: No Agree to transfusion: Yes Female Reproductive History: Para: 6 Spontaneous abortions: No Physical Exam Narrative: EXAM NARRATIVE: General: Alert, no acute distress. Skin: warm and dry Head: Normocephalic Neck: Trachea midline, some paraspinal muscle tenderness. No deformities. No bony tenderness. Eye: Extraocular movements are intact. Ears, nose, mouth and throat: Oral mucosa moist Respiratory: Respirations are non-labored Musculoskeletal: Normal ROM Gastrointestinal: Abdomen does not appear distended Neurological: Alert and oriented, No focal neurological deficit observed. Psychiatric: Cooperative, appropriate mood & affect. Course Vital Signs: Vital signs: Vital Signs Temperature 98.7 F 05/10/25 20:36 Pulse Rate 88 05/10/25 20:36 Respiratory Rate 05/10/25 20:36 Blood Pressure 122/78 05/10/25 20:36 Pulse Oximetry 96 05/10/25 20:36 Oxygen Delivery Me thod Room Air 05/10/25 20:36 MDM - Headache Medical Decision Making Assessment and plan: Cervical muscle pain ?Toradol and Norflex in the emergency room - Discharged home - Discussed plan with patient. Answered any questions. - Evaluation and treatment of this problem were appropriate in the emergency setting. No radiology studies performed this visit Discharge Plan Discharge Patient Disposition: Home Clinical Impression: Pain of paraspinal muscle Condition: Stable Prescriptions: New cyclobenzaprine 10 mg tablet 10 mg PO Q8H PRN (Reason: muscle spasm) Qty: 20 0RF dexamethasone 6 mg tablet 6 mg PO DAILY 5 Days Qty: 5 0RF diclofenac sodium 50 mg tablet,delayed release (DR/EC) 50 mg PO BID PRN (Reason: pain) Qty: 14 0RF No Action buprenorphine-naloxone 8-2 mg tablet, sublingual 1 tab SUBLINGUAL TID Qty: 90 3RF Rx Instructions: One tablet three times per day hydroxyzine pamoate 50 mg capsule 50 mg PO BID PRN (Reason: anxiety) Qty: 30 2RF Rx Instructions: Take one capsule twice per day as needed for anxiety losartan 25 mg tablet 25 mg PO DAILY Qty: 90 3RF albuterol sulfate 90 mcg/actuation HFA aerosol inhaler 2 inh inhalation Q4H PRN (Reason: shortness of breath or wheezing) Qty: 6.7 0RF Rx Instructions: Please provide patient with a spacer fluticasone propionate 110 mcg/actuation HFA aerosol inhaler 1 inh inhalation BID Qty: 12 0RF benzonatate 100 mg capsule 100 mg PO TID PRN (Reason: cough) Qty: 20 0RF Rx Instructions: Can take 1-2 tabs up to TID. Max 600mg/day. Discharge Orders: Discharge ED (Routine); Ordered 05/10/25 Ordered By: Stella Sanchez Referrals: Saba Jarvis FNP-C [Primary Care Provider, Family Practice] Patient Instructions: Opioid Safety, Pain Management, Patient Portal & Olga Instructions Activity Restrictions/Additional Instructions: Thank you for choosing [facility] for your healthcare needs today. You have been screened and evaluated and felt safe for discharge. Health conditions do change or evolve sometimes and as such it is important that you follow up with your Primary Doctor to be re checked, 3-5 days is a general good time frame for follow up. You are always welcome to return to the ED for re assessment if your symptoms are worsening or you have new concerns Print Language: Maltese Coding Level of Care Code ED Loan Manager for Brittnee Bowman
[2025-05-10] MEDS: orphenadrine 30 mg/mL Inj 2 mL 60 MG IM (21:56)
[2025-05-10 23:02] VITALS: BP 128/79; PULSE 78; O2SAT 96
== END 2025-05-10 23:06 | disposition home or self-care (01) ==
PROVIDERS: Emergency Provider Emergency Medicine; PCP Nurse Practitioner Family
DX: M62.830 Muscle spasm of back (principal); Z72.0 Tobacco use
CPT/HCPCS: 96372; 99284; J1100; J2360

== ENCOUNTER 2025-07-24 16:41 | Emergency (ER) | payer MEDICAID, SELFPAY ==
[2025-05-29 07:46] VITALS: BP 137/101; BMI 40.5
--- OUTSIDE RECORDS SUMMARY | 2025-07-24 16:44 | XMS_ITS | Clinical Summary ---
Author Organization [facility] Address [address] [facility] [address] [place]: Epic [place] [address] Care Team Providers Care Client Solutions Manager Name Role Phone Charley Jarvis MD Primary Care Provider [phone] Allergies Active Allergy Reactions Criticality Noted Date Comments Ketorolac Hives High 08/07/2010 Penicillins Unknown 02/21/2008 Silk Hives High 04/10/2020 Tramadol Headache Low 09/27/2015 Medications buprenorphine-na lOXone (SUBOXONE) 8-2 mg Tablet, Sublingual TAKE ONE TABLET BY MOUTH UNDER THE TONGUE THREE TIMES DAILY for SEVEN DAYS Active zolpidem (AMBIEN) 10 mg tabletIndication s:Psychophysiolo gical insomnia Take 1 Tablet (10 mg) by mouth nightly as needed for Insomnia. 90 Tablet 1 5 Active gabapentin (NEURONTIN) 300 mg capsule Take 1 Capsule (300 mg) by mouth 3 times daily. 270 Capsule 3 5 Active losartan (COZAAR) 25 mg tablet Take 1 Tablet (25 mg) by mouth daily. 100 Tablet 3 5 Active ondansetron (ZOFRAN ODT) 4 mg Tablet, Rapid Dissolve DISSOLVE 1 TABLET(4 MG) ON THE TONGUE EVERY 8 HOURS NEEDED FOR NAUSEA OR VOMITING. DISSOLVE ON TONGUE THEN SWALLOW 21 Tablet 5 Active tiZANidine (ZANAFLEX) 2 mg TabletIndication s:Chronic tension-type headache, not intractable Take 1 Tablet (2 mg) by mouth every 8 hours as needed for Spasm. 90 Tablet 2 5 Active Active Problems Problem Noted Date Diagnosed Date DDD (degenerative disc disease), cervical 2024 History of gastric ulcer 01/16/2025 Chronic tension-type [...] Encounters Date Type Department Care Team Description 06/12/2025 External Device Data [facility] ABSTRACTION Provider, Abstract 06/12/2025 External Device Data [facility] ABSTRACTION Provider, Abstract 05/18/2025 11:20 AM CDT Office Visit [address] [phone] Charley Jarvis MD Dysuria (Primary Dx); Neck pain; DDD (degenerative disc disease), cervical; Chronic tension-type headache, not intractable; Chronic midline thoracic back pain; Morbid obesity with body mass index (BMI) of 40.0 or higher ([facility]) 05/11/[address] [phone] Charley Jarvis MD Hospital Follow Up 05/09/2025 External Device Data [facility] ABSTRACTION Provider, Abstract 05/08/2025 External Device Data [facility] ABSTRACTION Provider, Abstract from Last 3 Months Family History Medical [...] on file 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 Gender Identity Not on file Sexual Orientation Not on file Last Filed Vital Signs Vital Sign Reading Time Taken Comments Blood Pressure 130/74 05/18/2025 11:09 AM CDT Pulse 92 05/18/2025 11:09 AM CDT Temperature 36.4 C (97.6 F) 05/18/2025 11:09 AM CDT Respiratory Rate 18 05/18/2025 11:0 9 AM CDT Oxygen Saturation 99% 05/18/2025 11: 09 AM CDT Inhaled Oxygen Concentration - - Weight 110.6 kg (243 lb 12.8 oz) 2024 11:09 AM CDT Height 165.1 cm (5' 5 ) 05/18/2025 11:0 9 AM CDT Body Mass Index 40.57 05/18/2025 11:09 AM CDT Plan of Treatment Health Maintenance Due Date Last Done Comments Pre-Diabetes and Diabetes Screening 1985 DTAP/TDAP/TD VACCINES (4 - Tdap) 2005 07/05/1987, 01/08/1987, 1986 HEPATITIS B VACCINES (1 of 3 - 19+ 3-dose series) 2005 Preventative Visit-Managed Medicaid 2005 HPV/Cotest (21-29) 2007 HPV VACCINES (1 - 3-dose SCDM series) 2013 CERVICAL CANCER SCREENING 2016 HPV/Cotest (30-65) 2016 PAP SMEAR 2016 INFLUENZA VACCINE (#1) 2025 Procedures Procedure Name Priority Date/Time Associated Diagnosis Comments POC URINALYSIS DIPSTICK AUTOMATED Routine 05/18/2025 1:34 PM CDT Dysuria from Last 3 Months Results * POC URINALYSIS DIPSTICK AUTOMATED (05/18/2025 1:34 PM CDT) COLOR UA POC Dark Yellow Pale to Dark Yellow [facility] CLARITY UA POC Clear Clear, Other [facility] GLUCOSE UA POC Negative Negative, Normal [facility] BILIRUBIN UA POC Negative Negative [facility] KETONES UA POC Negative Negative [facility] SPECIFIC GRAVITY UA POC 1.020 1.000 - 1.030 [facility] BLOOD UA POC Negative Negative [facility] LINIC [facility] PH UA POC 6.5 5.0 - 8.0 [facility] IC [facility] PROTEIN UA POC Negative Negative [facility] UROBILINOGEN UA POC 0.2 <2.0 mg/dL [facility] NITRITE UA POC Negative Negative [facility] LEUKOCYTE ESTERASE UA POC Negative Negative [facility] KIT LOT NUMBER POC [phone] [facility] KIT EXP DATE POC 02/21/2026 [facility] Urine 05/18/2025 1:34 PM CDT us Charley Jarvis MD POINT OF CARE TESTING Yamilka carreno Result [facility] CLIA# [id number] [address] [address] from Last [address] [facility] [employer] MEDICAID Care Teams Client Solutions Manager Relationship Specialty Start Date End Date Charley Jarvis MD [address] [phone] PCP - General Family Practice 01/16/25
--- OUTSIDE RECORDS SUMMARY | 2025-07-24 16:44 | XMS_ITS | Encounter Summary ---
Author Organization [facility] Address [address] [place] [address] Care Team Providers Care Rapid Extractor Operator Name Role Phone Charley Jarvis MD Primary Care Provider +- [phone] Reason for Visit * Reason Comments Information Encounter Details Date Type Department Care Team (Late st Contact Info) Description 04/05/2025 Telephone [facility] Medicine [address] [phone] Charley Jarvis MD [address] [phone] Information Social History Tobacco Use Types Packs/Day Years Used Date Smoking Tobacco: Never Smokeless Tobacco: Never Alcohol Use Standard Drinks/Week Comments No 0 (1 standard drink = 0.6 oz pur e alcohol) Comments No Sex and Gender Information Value Date Recorded Sex Assigned at Not on file 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 Topic: Established Patient Care >> Apr 05, 2025 3:15 PM Shavonne Rodas wrote: Is the patient established with a [facility] provider? Yes, select appropriate option in Discharge Facility SmartList Caller Name: Sarah Dooley Callback Number: [phone] (mobile) Call Notes: ER f/u, scheduled Wednesday [...] documented as of this encounter Care Teams Rapid Extractor Operator Relationship Specialty Start Date End Date Charley Jarvis MD [address] [place] [phone] PCP - General Family Practice 01/16/25 documented as of this encounter
[2025-07-24 16:51] VITALS: BP 136/86; PULSE 57; RESP 18; TEMP 36.7; O2SAT 97; BMI 37.1
[2025-07-24 17:13] LABS: Hematocrit 40.1 % (36-47); Hemoglobin 13.60 g/dL (11.27-16.99); Mean Corpuscular HGB Conc 33.9 g/dL (30-55); Mean Corpuscular Hemoglobin 29.6 pg (27-33); Mean Corpuscular Volume 87.2 fl (85-98); Nucleated Red Blood Cells % 0 %; Platelet Count 291 10^3/cmm (157-399); Red Blood Count 4.60 10^6/uL (3.85-5.65); White Blood Count 9.54 10^3/uL (3.29-11.43)
[2025-07-24 17:24] LABS: Alanine Aminotransferase 23 U/L (0-33); Albumin Level 4.7 g/dL (3.5-5.2); Alkaline Phosphatase 73 U/L (35-105); Anion Gap 14.7 (5-19); Aspartate Amino Transferase 19 U/L (0-32); Blood Urea Nitrogen 6 mg/dL (6-20); Calcium 9.9 mg/dL (8.5-10.5); Carbon Dioxide 26 mmol/L (22-29); Chloride 104 mmol/L (98-107); Creatinine Clr Calc Pharmacy 155.1577; Globulin 3.2 g/dL (1.3-4.6); Glucose 114 mg/dL (65-115); Lipase 15 U/L (13-60); Osmolality Calculated 290 mOsm/kg (285-295); Potassium 3.7 mmol/L (3.5-5.1); Sodium 141 mmol/L (136-145); Total Protein 7.9 g/dL (6.6-8.7)
[2025-07-24 17:25] LABS: Lactic Sepsis W/Reflex 1.2 mmol/L (0.5-2.2)
[2025-07-24 18:57] VITALS: BP 132/87; PULSE 54; O2SAT 96
--- NOTE | 2025-07-24 18:59 | PC.NURSE ---
Pt did a clean catch urine, was educated on the wipes, ua has floating blood discharge, pt reports being on menses. Peyton MATTHEWS notified and aware.
--- NOTE | 2025-07-24 19:04 | CTR_ITS ---
PROCEDURE INFORMATION: Exam: CT Abdomen And Pelvis With Contrast Exam date and time: 07/24/2025 8:34 PM Age: 39 years old Clinical indication: Abdominal pain; Generalized; Prior surgery; Surgery date: 6+ months; Surgery type: Gb, appy; Additional info: Mid abd/back pain, n/v TECHNIQUE: Imaging protocol: Computed tomography of the abdomen and pelvis with contrast. Radiation optimization: All CT scans at this facility use at least one of these dose optimization techniques: automated exposure control; mA and/or kV adjustment per patient size (includes targeted exams where dose is matched to clinical indication); or iterative reconstruction. Contrast material: OMNIPAQUE 350; Contrast volume: 100 ml; Contrast route: INTRAVENOUS (IV); COMPARISON: CT abdomen pelvis w con* [id number] 04/03/2025 4:50 PM RADIATION DOSE METRICS: Total DLP (mGy-cm): 1068.63 FINDINGS: Liver: No discrete liver lesions are apparent. Smooth hepatic contour. Gallbladder and biliary ducts: Prior cholecystectomy. Pancreas: No evidence of pancreatitis. No ductal dilation. Spleen: Spleen is within normal limits. Adrenal glands: Adrenal glands are within expected limits. Kidneys and ureters: Tiny punctate nonobstructing calculus left kidney on coronal imaging. Small subcentimeter left renal cortical cysts. Right kidney grossly unremarkable. No ureteral stones. No hydronephrosis. Stomach and bowel: Very few colonic diverticula. No colonic wall thickening. Small bowel loops are normal caliber with no obstruction or inflammatory changes. Appendix: Prior appendectomy. Intraperitoneal space: No free air. No significant fluid collection. Vasculature: No abdominal aortic aneurysm. Lymph nodes: No pathologically enlarged lymph nodes by CT size criteria. Urinary bladder: Unremarkable as visualized. Reproductive: Unremarkable as visualized. Bones/joints: No acute osseous abnormalities. Soft tissues: Tiny fat containing umbilical hernia. CT/CT abdomen pelvis w con* [id number] IMPRESSION: 1. No acute abdominal or pelvic abnormalities are identified. 2. Punctate nonobstructive left nephrolithiasis. COMMENTS: Consistent with the [place] [employer]'s Incidental Findings Committee white paper (J Am Clint Radiol 2018): Any incidental renal lesion less than 1 cm or classified as too small to characterize, or any incidental cystic renal lesion characterized as simple-appearing, is likely benign. No follow-up imaging is recommended for these lesions per consensus recommendations based on imaging criteria.
[2025-07-24 19:14] LABS: Glucose Urine UA Negative (Normal); Nitrate Urine Negative (Negative); Specific Gravity, Urine 1.016 (1.005-1.030)
--- NOTE | 2025-07-24 19:20 | ED_ITS ---
HPI - Nausea/Vomiting/Diarrhea 2 General: Chief complaint: Nausea/Vomiting/Diarrhea Stated complaint: Dizziness/ N Time Seen by Provider: 07/24/25 18:09 Source: patient Mode of arrival: ambulatory Limitations: no limitations History of Present Illness: Patient is a 39-year-old female who presents to the emergency department complaining of nausea vomiting and abdominal pain/back pain. She states that she thinks something is wrong with her low back, has been dealing with pain for months now and states that she is followed up for this but nothing has been done. Notes that she is also had decrease in appetite, does not report any specific alleviating or exacerbating factor with her pain. Notes that she cannot keep anything down. Does report a history of marijuana use. Also notes that she has been under a lot of stress at home to as she has multiple children who are disabled and special needs. No urinary symptoms. No fevers or chills. She has past medical history of substance abuse and psychiatric care. MD elicited complaint: nausea, vomiting and abdominal pain Pertinent past history: cyclical vomiting Onset (ago): day(s) Associated nausea: Yes Associated abdominal pain: Yes Location of pain: Diffuse Severity: similar to previous episodes Quality: cramping and constant Associated symtoms: Reports dizziness and nausea; Denies chest pain, diaphoresis, dysuria, headache(s) or palpitations Related Data Previous Rx's ?Medication ?Instructions ?Recorded losartan 25 mg tablet 25 mg PO DAILY #90 tabs 07/18 albuterol sulfate 90 mcg/actuation 2 inh inhalation Q4 H PRN shortness 01/08/25 aerosol inhaler of breath or wheezing #6.7 g lori benzonatate 100 mg capsule 100 mg PO TID PRN cough #20 caps 03/20/25 fluticasone propionate 110 1 inh inhalation BID #12 gr ams 03/20/25 mcg/actuation HFA aerosol inhaler buprenorphine 8 mg-naloxone 2 mg 1 tab sublingual TID #90 tabs 03/27/25 sublingual tablet hydroxyzine pamoate 50 mg capsule 50 mg PO BID PRN anx iety #30 caps 03/27/25 cyclobenzaprine 10 mg tablet 10 mg PO Q8H PRN muscle s pasm #20 05/10/25 tabs diclofenac sodium 50 mg 50 mg PO BID PRN pain #14 ta bs 05/10/25 tablet,delayed release albuterol sulfate 90 mcg/actuation 1 inh inhalation Q6 H PRN shortness 07/24/25 aerosol inhaler of breath or wheezing #6.7 g lori Allergies Allergy/AdvReac Type Severity Reaction Status Date / Time ketorolac (From Toradol) Allergy ADR-Seizure Verified 05/10/25 15:02 Penicillins Allergy ALGY-Rash Verified 05/10/25 15:02 Review of Systems 2 General: Reports: 10 or more systems reviewed and unremarkable except in HPI and below Const: Reports: change in appetite; Denies: fever(s), chills, change in weight or diaphoresis ENMT: Denies: throat pain or hoarseness Card: Reports: lightheadedness; Denies: chest pain or palpitations Resp: Denies: dyspnea, productive cough or wheezing GI: Reports: abdominal pain, nausea and vomiting; Denies: diarrhea : Denies: flank pain, difficulty voiding, dysuria, urinary frequency or urinary urgency Musc: Reports: back pain; Denies: neck pain Skin/Breast: Denies: rash or new lesions Neuro: Reports: dizziness; Denies: headache(s) PFSH ED 2 PFSH: Medical History Cyclothymic disorder Cannabis dependence, uncomplicated Methamphetamine use disorder, moderate, in sustained remission, dependence Chronic post-traumatic stress disorder Generalized anxiety disorder Psychiatric care Family History Other Bone cancer Breast cancer CAD (coronary artery disease) Diabetes Heart disease Hypertension Leukemia Social History Smoking and tobacco/nicotine status: current every day tobacco/nicotine user Alcohol intake: never Substance/Drug Use: current Substance/Drug use frequency: daily Adopted: No Caregiver/support person: No Lives independently: Yes Household members: significant other and children Housing: Manufactured/Mobile home Marital status: Number of children: 6 Number of grandchildren: 1 Highest education level completed: Some College, No Degree service: No Current occupational status: other Current occupation: working on disability Pets and animals: No Leisure activites: music, games and other Leisure activities details: Watch TV Sexually active: Yes Do you think of yourself as: Straight/Heterosexual Current gender identity: Female Fatoumata/Worship: [employer] Special fatoumata needs: No Agree to transfusion: Yes Female Reproductive History: Para: 6 Spontaneous abortions: No Physical Exam 2 Const: COMMON NORMALS: no acute distress, patient oriented x3 and alert G ENERAL APPEARANCE: cooperative NUTRITIONAL APPEARANCE: obese (BMI 37) morbidly obese ORIENTATION/CONSCIOUSNESS: Yes awake Neck/C-Spine: COMMON NORMALS: full ROM, supple, no meningeal signs and no JVD Resp: COMMON NORMALS: normal respiratory effort, No retractions, No use of accessory muscles and clear to auscultation bilaterally AUSCULTATION: clear to auscultation bilaterally, no crackles, no rales, no rhonchi and no wheezes Cardio: COMMON NORMALS: no JVD, regular rate, regular rhythm, No gallops present (Cardio), No clicks present (Cardio), No murmurs present (Cardio) and No rub (Cardio) RATE: regular rate RHYTHM: regular rhythm GI: COMMON NORMALS: Soft to palpation, No hepatosplenomegaly present and no masses INSPECTION: Yes central obesity AUSCULTATION: Yes normoactive bowel sounds PALPATION: Yes Soft to palpation, No Guarding due to palpation present (GI), No Rigid due to palpation and Yes No hepatosplenomegaly present RECTAL EXAM: deferred OTHER: Mild diffuse nonspecific abdominal tenderness to palpation Back/Pelvis: OTHER: Point tenderness to palpation to the lower thoracic spine with no obvious signs of deformity or trauma Extremity: COMMON NORMALS: normal to inspection and full ROM Neuro: COMMON NORMALS: patient oriented x3, moves all extremities, no focal motor deficits and no sensory deficits noted SENSORIUM/ORIENTATION: Yes alert MENINGEAL SIGNS: Yes no meningeal signs Psych: COMMON NORMALS: mental status grossly normal, cooperative and speech normal SPEECH: Yes normal speech Skin: COMMON NORMALS: no rashes or lesions noted GENERAL SKIN EXAM: no rashes or lesions noted Course 2 Vital Signs: Vital signs: Vital Signs Temperature 98.1 F 07/24/25 16:51 Pulse Rate 54 L 07/24/25 18:57 Respiratory Rate 20 H 07/24/25 19:31 Blood Pressure 126/80 07/24/25 20:00 Pulse Oximetry 96 07/24/25 19:31 Oxygen Delivery Me thod Room Air 07/24/25 18:57 MDM - Nausea/Vomiting/Diarrhea Medical Decision Making Patient presenting with multiple symptoms, including abdominal pain radiating into the back, history of similar. States that she has dealt with low back pain for months, has been under a lot of stress recently and is concerned over her sudden decrease in appetite. Vital stable on arrival, she is a marijuana smoker however has not reported any significant vomiting. Lab work unremarkable, CT abdomen pelvis not showing any acute findings. She stable for discharge home, she is requesting referral to Ortho/spine to discuss her chronic back pain. Return precautions given. I do not suspect that her pain is from any acute or emergent process. Lab Data 07/24/25 16:20 07/24/25 16:20 Radiology Impressions Abdomen/Pelvis CT 07/24/25 19:04 IMPRESSION: 1. No acute abdominal or pelvic abnormalities are identified. 2. Punctate nonobstructive left nephrolithiasis. COMMENTS: Consistent with the [place] [employer]'s Incidental Findings Committee white paper (J Am Clint Radiol 2018): Any incidental renal lesion less than 1 cm or classified as too small to characterize, or any incidental cystic renal lesion characterized as simple-appearing, is likely benign. No follow-up imaging is recommended for these lesions per consensus recommendations based on imaging criteria. Laboratory Results WBC 9.54 10^3/uL (3.29-11.43) 07/24/25 16:20 RBC 4.60 10^6/uL (3.85-5.65) 07/24/25 16:20 Hgb 13.60 g/dL (11.27-16.99) 07/24/25 16:20 Hct 40.1 % (36-47) 07/24/25 16:20 MCV 87.2 fl (85-98) 07/24/25 16:20 MCH 29.6 pg (27-33) 07/24/25 16:20 MCHC 33.9 g/dL (30-55) 07/24/25 16:20 RDW 12.2 % (12.1-15.1) 07/24/25 16:20 Plt Count 291 10^3/cmm (157-399) 07/24/25 16:20 MPV 9.7 fL (7.4-10.4) 07/24/25 16:20 Neut % (Auto) 65.4 % 07/24/25 16:20 Lymph % (Auto) 26.4 % 07/24/25 16:20 [place] % (Auto) 4.8 % 07/24/25 16:20 Eos % (Auto) 2.4 % 07/24/25 16:20 Baso % (Auto) 0.8 % 07/24/25 16:20 Neut # (Auto) 6.23 10^3/uL (1.8-7.7) 07/24/25 16:20 Lymph # (Auto) 2.5 10^3/uL (0.8-4.8) 07/24/25 16:20 [place] # (Auto) 0.5 10^3/uL (0.2-0.9) 07/24/25 16:20 Eos # (Auto) 0.2 10^3/uL (0.0-0.8) 07/24/25 16:20 Baso # (Auto) 0.1 10^3/uL (0.0-0.1) 07/24/25 16:20 Nucleated RBC % (auto) 0 % 07/24/25 16:20 Nucleated RBCs # 0.0 /100WBC 07/24/25 16:20 Sodium 141 mmol/L (136-145) 07/24/25 16:20 Potassium 3.7 mmol/L (3.5-5.1) 07/24/25 16:20 Chloride 104 mmol/L (98-107) 07/24/25 16:20 Carbon Dioxide 26 mmol/L (22-29) 07/24/25 16:20 Anion Gap 14.7 (5-19) 07/24/25 16:20 BUN 6 mg/dL (6-20) 07/24/25 16:20 Creatinine 0.6 mg/dL (0.5-0.9) 07/24/25 16:20 GFR Calculation 111.9 mL/min (90-130) 07/24/25 16:20 Glucose 114 mg/dL (65-115) 07/24/25 16:20 Calculated Osmolality 290 mOsm/kg (285-295) 07/24/25 16:20 Lactic Acid 1.2 mmol/L (0.5-2.2) 07/24/25 16:20 Calcium 9.9 mg/dL (8.5-10.5) 07/24/25 16:20 Total Bilirubin 0.4 mg/dL (0.15-1.2) 07/24/25 16:20 AST 19 U/L (0-32) 07/24/25 16:20 ALT 23 U/L (0-33) 07/24/25 16:20 Alkaline Phosphatase 73 U/L (35-105) 07/24/25 16:20 C-Reactive Protein 14.1 mg/L (0.0-4.9) H 07/24/25 16:20 Total Protein 7.9 g/dL (6.6-8.7) 07/24/25 16:20 Albumin 4.7 g/dL (3.5-5.2) 07/24/25 16:20 Globulin 3.2 g/dL (1.3-4.6) 07/24/25 16:20 Lipase 15 U/L (13-60) 07/24/25 16:20 HCG, Qual Negative (Negative) 07/24/25 18:[address] [facility] (Yellow) A 07/24/25 18: Urine Appearance Cloudy (CLEAR) A 07/24/25 18:32 Urine pH 8.0 (5-7) A 07/24/25 18:32 Ur Specific [place] 1.016 (1.005-1.030) 07/24/25 18: Urine Protein 1+ (Negative) A 07/24/25 18: Urine Glucose (UA) Negative (Normal) 07/24/25 18: Urine Ketones Negative (Negative) 07/24/25 18:32 Urine Blood 3+ (Negative) A 07/24/25 18:32 Urine Nitrate Negative (Negative) 07/24/25 18:32 Urine Bilirubin Negative (Negative) 07/24/25 18:32 Urine Urobilinogen 0.2 mg/dL (Negative) 07/24/25 18:32 Ur Leukocyte Esterase 1+ (Negative) A 07/24/25 18:32 Urine RBC 80-100 /hpf (0-2) H 07/24/25 18:32 Urine WBC 5-10 /hpf (0-5) H 07/24/25 18:32 Ur Squamous Epith Cells 5-10 /hpf (0-5) H 07/24/25 18:32 Amorphous Sediment Not Reportable 07/24/25 18:32 Urine Bacteria Trace /hpf (NONE) 07/24/25 18:32 Urine Opiates Screen Negative ng/mL (Negative) 07/24/25 18:32 Ur Barbiturates Screen Negative ng/mL (Negative) 07/24/25 18:32 Ur Phencyclidine Scrn Negative ng/mL (Negative) 07/24/25 18:32 Ur Amphetamines Screen Negative ng/mL (Negative) 07/24/25 18:32 U Benzodiazepines Scrn Negative ng/mL (Negative) 07/24/25 18:32 Urine Cocaine Screen Negative ng/mL (Negative) 07/24/25 18:32 U Marijuana (THC) Screen Positive ng/mL (Negative) H 07/24/25 18:32 All radiology interpretation(s) finalized by discharge Discharge Plan Discharge Patient Disposition: Home Clinical Impression: Chronic low back pain Qualifiers: Back pain laterality: unspecified Sciatica presence: without sciatica Qualified Code(s): M54.50 - Low back pain, unspecified Condition: Stable Prescriptions: New albuterol sulfate 90 mcg/actuation HFA aerosol inhaler 1 inh inhalation Q6H PRN (Reason: shortness of breath or wheezing) Qty: 6.7 0RF No Action buprenorphine-naloxone 8-2 mg tablet, sublingual 1 tab SUBLINGUAL TID Qty: 90 3RF Rx Instructions: One tablet three times per day hydroxyzine pamoate 50 mg capsule 50 mg PO BID PRN (Reason: anxiety) Qty: 30 2RF Rx Instructions: Take one capsule twice per day as needed for anxiety losartan 25 mg tablet 25 mg PO DAILY Qty: 90 3RF albuterol sulfate 90 mcg/actuation HFA aerosol inhaler 2 inh inhalation Q4H PRN (Reason: shortness of breath or wheezing) Qty: 6.7 0RF Rx Instructions: Please provide patient with a spacer fluticasone propionate 110 mcg/actuation HFA aerosol inhaler 1 inh inhalation BID Qty: 12 0RF benzonatate 100 mg capsule 100 mg PO TID PRN (Reason: cough) Qty: 20 0RF Rx Instructions: Can take 1-2 tabs up to TID. Max 600mg/day. cyclobenzaprine 10 mg tablet 10 mg PO Q8H PRN (Reason: muscle spasm) Qty: 20 0RF diclofenac sodium 50 mg tablet,delayed release (DR/EC) 50 mg PO BID PRN (Reason: pain) Qty: 14 0RF Discharge Orders: Discharge ED (Routine); Ordered 07/24/25 Ordered By: Silvestre Del Castillo Referrals: Saba Jarvis FNP-C [Primary Care Provider, Family Practice] Patient Instructions: Patient Portal & Olga Instructions Activity Restrictions/Additional Instructions: Follow-up with Ortho/spine. Please take pain medications [id number] as you have been. Gentle range of motion exercises and stretching. Ice/heat to your back. Return with any new or worsening. Print Language: Malian Coding Level of Care Code ED Nut Feeder for Brittnee Bowman
[2025-07-24 19:24] LABS: PCP Screen Urine Negative (Negative)
[2025-07-24 19:29] LABS: UA Manual Slide Review YES
[2025-07-24 19:31] VITALS: RESP 20; O2SAT 96
[2025-07-24] MEDS: ondansetron 2 mg/ML SDV 2 mL 4 MG IVP (19:31)
[2025-07-24] MEDS: morphine 4 mg/mL SDV 1 mL IVP (19:31)
[2025-07-24 19:34] VITALS: BP 143/100
[2025-07-24 20:00] VITALS: BP 126/80
[2025-07-24 20:20] LABS: HCG Qualitative Urine. Negative (Negative)
--- NOTE | 2025-07-25 11:57 | DCPLANNER ---
Referral sent to Ortho Spine for follow up-
== END 2025-07-24 21:26 | disposition home or self-care (01) ==
PROVIDERS: Emergency Medicine; Emergency Provider Physician Assistant; PCP Nurse Practitioner Family
DX: M54.50 Low back pain, unspecified (principal); Z72.0 Tobacco use
CPT/HCPCS: 74177; 80053; 80306; 81001; 81025; 83605; 83690; 85025; 86140; 87086; 96374; 96375; 99285; J2270; J2405

== ENCOUNTER 2025-08-31 19:45 | Emergency (ER) | payer MEDICAID, SELFPAY ==
[2025-05-29 07:46] VITALS: BP 137/101; BMI 40.5
[2025-08-31 19:47] VITALS: BP 135/66; PULSE 75; RESP 18; TEMP 37.1; O2SAT 94
--- NOTE | 2025-08-31 19:52 | ECG_ITS ---
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 Measurements Intervals [place] Rate: 63 P: 19 IN: 114 QRS: 35 QRSD: 105 T: 2 QT: 379 QTc: 389 Interpretive Statements SINUS RHYTHM WITH SHORT IN INTERVAL NONSPECIFIC ST & T-WAVE ABNORMALITY Compared to ECG 01/08/2025 21:35:35 Short IN interval now present Incomplete right bundle-branch block no longer present T-wave abnormality still present Electronically Signed On 09-01-2025 08:30:29 BOARD CERTIFIED ARTS THERAPIST by Deven Saini M.D. [email or web address]
--- NOTE | 2025-08-31 20:35 | XRR_ITS ---
PROCEDURE INFORMATION: Exam: XR Chest Exam date and time: 08/31/2025 8:35 PM Age: 40 years old Clinical indication: Cough and shortness of breath; Prior surgery; Surgery date: 6+ months; Surgery type: Gb; Cough with SOB TECHNIQUE: Imaging protocol: Radiologic exam of the chest. Views: 1 view. COMPARISON: CR XR chest 1V portable [id number] 03/20/2025 8:02 PM FINDINGS: Lungs: Unremarkable. No consolidation. Pleural spaces: Unremarkable. No pleural effusion. No pneumothorax. Heart/Mediastinum: Unremarkable. No cardiomegaly. Bones/joints: Unremarkable. XR/XR chest 1V portable [id number] IMPRESSION: No acute findings.
[2025-08-31 21:15] LABS: Hematocrit 42.0 % (36-47); Hemoglobin 14.40 g/dL (11.27-16.99); Mean Corpuscular HGB Conc 34.3 g/dL (30-55); Mean Corpuscular Hemoglobin 30.4 pg (27-33); Mean Corpuscular Volume 88.8 fl (85-98); Nucleated Red Blood Cells % 0 %; Platelet Count 304 10^3/cmm (157-399); Red Blood Count 4.73 10^6/uL (3.85-5.65); White Blood Count 11.44 10^3/uL (3.29-11.43)
--- NOTE | 2025-08-31 21:20 | W.ED.SOB ---
HPI - SOB/Dyspnea General: Chief Complaint: Shortness of Breath/Dyspnea Stated Complaint: Coughing up Brown Mucus Time Seen by Provider: 08/31/25 20:32 History of Present Illness: HPI Narrative: Patient is a 40-year-old female presenting with chest pain of 2 days' duration and a sensation of a lump in her throat (globus sensation) for the past couple of hours. She reports associated diaphoresis and generally feeling unwell. The chest pain is pleuritic in nature, worsening with deep inspiration. She denies cough-related exacerbation of the pain. Patient reports episodes of heart palpitations that began after a COVID-19 infection. She denies any choking episodes, wheezing, fever, or recent cold symptoms. The patient reports that she was spitting up chumky things prior to arrival, though the context is unclear. She denies smoking or vaping history. Related Data Home Medications ?Medication ?Instructions ?Recorded ?Confirmed gabapentin 300 mg capsule 300 mg PO TID 08/16/25 08/18/25 tizanidine 2 mg capsule 2 mg PO TID PRN 08/16/25 08/18/25 zolpidem 7.5 mg capsule 7.5 mg PO DAILY 08/18/25 08/18/25 Previous Rx's ?Medication ?Instructions ?Recorded losartan 25 mg tablet 25 mg PO DAILY #90 tabs 03/02/24 albuterol sulfate 90 mcg/actuation 2 inh inhalation Q4H PRN shortness 01/08/25 aerosol inhaler of breath or wheezing #6.7 grams fluticasone propionate 110 1 inh inhalation BID #12 grams 03/20/25 mcg/actuation HFA aerosol inhaler cyclobenzaprine 10 mg tablet 10 mg PO Q8H PRN muscle spasm #20 05/10/25 tabs albuterol sulfate 90 mcg/actuation 1 inh inhalation Q6H PRN shortness 07/24/25 aerosol inhaler of breath or wheezing #6.7 grams minocycline 100 mg tablet 100 mg PO BID #14 tabs 08/18/25 buprenorphine 8 mg-naloxone 2 mg 1 tab sublingual TID #90 tabs 08/22/25 sublingual tablet Allergies Allergy/AdvReac Type Severity Reaction Status Date / Time ketorolac (From Toradol) Allergy ADR-Seizure Verified 08/16/25 10:18 Penicillins Allergy ALGY-Rash Verified 08/16/25 10:18 [facility] PFSH: Medical History (Updated 08/31/25 @ 22:41 by Pj Mcgarry DO) Cyclothymic disorder Cannabis dependence, uncomplicated Methamphetamine use disorder, moderate, in sustained remission, dependence Chronic post-traumatic stress disorder Generalized anxiety disorder Psychiatric care Family History Other Bone cancer Breast cancer CAD (coronary artery disease) Diabetes Heart disease Hypertension Leukemia Social History Smoking and tobacco/nicotine status: never used tobacco/nicotine Alcohol intake: never Substance/Drug Use: current Substance/Drug use frequency: daily Adopted: No Caregiver/support person: No Lives independently: Yes Household members: significant other and children Housing: Manufactured/Mobile home Marital status: Number of children: 6 Number of grandchildren: 1 Highest education level completed: Some College, No Degree service: No Current occupational status: other Current occupation: working on disability Pets and animals: No Leisure activites: music, games and other Leisure activities details: Watch TV Sexually active: Yes Do you think of yourself as: Straight/Heterosexual Current gender identity: Female Fatoumata/Sikhism: Jainism Special fatoumata needs: No Agree to transfusion: Yes Female Reproductive History: Para: 6 Spontaneous abortions: No Physical Exam Const: COMMON NORMALS: no acute distress GENERAL APPEARANCE: cooperative; not ill appearing and not frail appearing HENMT: COMMON NORMALS: normocephalic, atraumatic and Normal external nose present HEAD & SCALP: normocephalic and atraumatic FACE & SINUS: normal facial exam and face symmetric NOSE: Normal external nose present Eye: COMMON NORMALS: Equal, round and reactive pupils present and EOMs intact bilaterally PUPIL: Yes Equal, round and reactive pupils present Neck/C-Spine: GENERAL: Yes trachea midline Chest: CHEST: Yes Symmetrical chest wall rise Resp: COMMON NORMALS: normal respiratory effort, No retractions, No use of accessory muscles and clear to auscultation bilaterally AUSCULTATION: clear to auscultation bilaterally Cardio: COMMON NORMALS: regular rate and regular rhythm RATE: regular rate RHYTHM: regular rhythm GI: COMMON NORMALS: Normal to inspection, nondistended, normoactive bowel sounds present Extremity: COMMON NORMALS: no pedal edema Neuro: TA COMA SCALE: document GCS findings Midnight coma scale eye opening: Spontaneous Ta coma scale verbal response: Orientated Midnight coma scale motor response: Obey commands Midnight coma scale total score: 15 SENSORY EXAM: Yes extremities (intact) Psych: COMMON NORMALS: speech normal SPEECH: Yes normal speech Skin: COMMON NORMALS: no rashes or lesions noted GENERAL SKIN EXAM: no rashes or lesions noted Course Vital Signs: Vital signs: Vital Signs Temperature 98.8 F 08/31/25 19:47 Pulse Rate 48 L 08/31/25 21:37 Respiratory Rate 16 08/31/25 22:26 Blood Pressure 128/73 08/31/25 21:37 Pulse Oximetry 95 08/31/25 21:37 Oxygen Delivery Me thod Room Air 08/31/25 21:21 MDM - SOB/Dyspnea Medical Decision Making 40-year-old female with chest discomfort. She has some shortness of breath as well. Oxygen saturations have been 95% above on room air. She is normotensive. Her heart rate has been low at times, down to 42 it is the lowest. It is a sinus bradycardia. EKG timed 2057 read at 2100 reveals sinus bradycardia with a normal axis. There is an RSR prime in V1. There is no ST wave changes. Intervals are normal. Chest x-ray is nonacute. Laboratory otherwise not remarkable. Troponin is nondetectable. BNP is nondetectable. She is stable for discharge. Will ask case management to set her up with cardiology to be seen for the bradycardia. She knows to return for worsening symptoms. Lab Data 08/31/25 21:04 08/31/25 21:04 Labs/Radiology: Radiology Impressions Chest X-Ray 08/31/25 20:35 IMPRESSION: No acute findings. Laboratory Results WBC 11.44 10^3/uL (3.29-11.43) H 08/31/25 21:04 RBC 4.73 10^6/uL (3.85-5.65) 08/31/25 21:04 Hgb 14.40 g/dL (11.27-16.99) 08/31/25 21:04 Hct 42.0 % (36-47) 08/31/25 21:04 MCV 88.8 fl (85-98) 08/31/25 21:04 MCH 30.4 pg (27-33) 08/31/25 21:04 MCHC 34.3 g/dL (30-55) 08/31/25 21:04 RDW 11.9 % (12.1-15.1) L 08/31/25 21:04 Plt Count 304 10^3/cmm (157-399) 08/31/25 21:04 MPV 9.4 fL (7.4-10.4) 08/31/25 21:04 Neut % (Auto) 60.2 % 08/31/25 21:04 Lymph % (Auto) 32.4 % 08/31/25 21:04 Wells % (Auto) 5.5 % 08/31/25 21:04 Eos % (Auto) 1.0 % 08/31/25 21:04 Baso % (Auto) 0.7 % 08/31/25 21:04 Neut # (Auto) 6.89 10^3/uL (1.8-7.7) 08/31/25 21:04 Lymph # (Auto) 3.7 10^3/uL (0.8-4.8) 08/31/25 21:04 Wells # (Auto) 0.6 10^3/uL (0.2-0.9) 08/31/25 21:04 Eos # (Auto) 0.1 10^3/uL (0.0-0.8) 08/31/25 21:04 Baso # (Auto) 0.1 10^3/uL (0.0-0.1) 08/31/25 21:04 Nucleated RBC % (auto) 0 % 08/31/25 21:04 Nucleated RBCs # 0.0 /100WBC 08/31/25 21:04 Sodium 137 mmol/L (136-145) 08/31/25 21:04 Potassium 3.8 mmol/L (3.5-5.1) 08/31/25 21:04 Chloride 101 mmol/L (98-107) 08/31/25 21:04 Carbon Dioxide 21 mmol/L (22-29) L 08/31/25 21:04 Anion Gap 18.8 (5-19) 08/31/25 21:04 BUN 10 mg/dL (6-20) 08/31/25 21:04 Creatinine 0.7 mg/dL (0.5-0.9) 08/31/25 21:04 GFR Calculation 93.2 mL/min (90-130) 08/31/25 21:04 Glucose 111 mg/dL (65-115) 08/31/25 21:04 Calculated Osmolality 284 mOsm/kg (285-295) L 08/31/25 21:04 Calcium 9.7 mg/dL (8.5-10.5) 08/31/25 21:04 Total Bilirubin 0.4 mg/dL (0.15-1.2) 08/31/25 21:04 AST 18 U/L (0-32) 08/31/25 21:04 ALT 20 U/L (0-33) 08/31/25 21:04 Alkaline Phosphatase 76 U/L (35-105) 08/31/25 21:04 Troponin T Baseline < 6 ng/L (0-10) 08/31/25 21:04 NT-Pro-B Natriuret Pep < 36 pg/mL (0-125) 08/31/25 21:04 Total Protein 7.5 g/dL (6.6-8.7) 08/31/25 21:04 Albumin 4.7 g/dL (3.5-5.2) 08/31/25 21:04 Globulin 2.8 g/dL (1.3-4.6) 08/31/25 21:04 TSH 0.29 uIU/mL (0.27-4.20) 08/31/25 21:04 All radiology interpretation(s) finalized by discharge Discharge Plan Discharge Patient Disposition: Home Clinical Impression: Bradycardia Chest pain Qualifiers: Chest pain type: unspecified Qualified Code(s): R07.9 - Chest pain, unspecified Condition: Stable Prescriptions: No Action zolpidem 7.5 mg capsule 7.5 mg PO DAILY minocycline 100 mg tablet 100 mg PO BID Qty: 14 0RF losartan 25 mg tablet 25 mg PO DAILY Qty: 90 3RF gabapentin 300 mg capsule 300 mg PO TID tizanidine 2 mg capsule 2 mg PO TID PRN buprenorphine-naloxone 8-2 mg tablet, sublingual 1 tab SUBLINGUAL TID Qty: 90 3RF Rx Instructions: One tablet three times per day albuterol sulfate 90 mcg/actuation HFA aerosol inhaler 2 inh inhalation Q4H PRN (Reason: shortness of breath or wheezing) Qty: 6.7 0RF Rx Instructions: Please provide patient with a spacer fluticasone propionate 110 mcg/actuation HFA aerosol inhaler 1 inh inhalation BID Qty: 12 0RF cyclobenzaprine 10 mg tablet 10 mg PO Q8H PRN (Reason: muscle spasm) Qty: 20 0RF albuterol sulfate 90 mcg/actuation HFA aerosol inhaler 1 inh inhalation Q6H PRN (Reason: shortness of breath or wheezing) Qty: 6.7 0RF Discharge Orders: Discharge ED (Routine); Ordered 08/31/25 Ordered By: Pj Mcgarry Referrals: Saba Jarvis FNP-C [Primary Care Provider, Family Practice] - 1-3 days Patient Instructions: Chest Pain (ED), Bradycardia (ED), Opioid Safety, Pain Management, Patient Portal & Olga Instructions Activity Restrictions/Additional Instructions: Case management should contact you this coming week regarding a follow-up appointment with cardiology because of your slow heart rate. Return for worsening pain, fever, any other concerning symptoms. Print Language: Tamazight Coding Level of Care Code ED Ruby Developer for Brittnee Bowman
[2025-08-31 21:21] VITALS: PULSE 57; RESP 17; O2SAT 98
[2025-08-31 21:37] VITALS: BP 128/73; PULSE 48; RESP 14; O2SAT 95
[2025-08-31 21:41] LABS: Alanine Aminotransferase 20 U/L (0-33); Albumin Level 4.7 g/dL (3.5-5.2); Alkaline Phosphatase 76 U/L (35-105); Anion Gap 18.8 (5-19); Aspartate Amino Transferase 18 U/L (0-32); Blood Urea Nitrogen 10 mg/dL (6-20); Calcium 9.7 mg/dL (8.5-10.5); Carbon Dioxide 21 mmol/L (22-29); Chloride 101 mmol/L (98-107); Creatinine Clr Calc Pharmacy 125.5072; Globulin 2.8 g/dL (1.3-4.6); Glucose 111 mg/dL (65-115); Osmolality Calculated 284 mOsm/kg (285-295); Potassium 3.8 mmol/L (3.5-5.1); Sodium 137 mmol/L (136-145); Total Protein 7.5 g/dL (6.6-8.7); Troponin(5th) Baseline < 6 ng/L (0-10)
[2025-08-31 21:48] LABS: NT Pro B Type Natriuretic Pept < 36 pg/mL (0-125)
[2025-08-31 22:25] LABS: Thyroid Stimulating Hormone 0.29 uIU/mL (0.27-4.20)
[2025-08-31 22:26] VITALS: RESP 16
[2025-08-31] MEDS: ondansetron 2 mg/ML SDV 2 mL 4 MG IVP (22:26)
[2025-08-31] MEDS: morphine 4 mg/mL SDV 1 mL IVP (22:26)
[2025-08-31 23:03] VITALS: PULSE 89; RESP 22; O2SAT 96
[2025-08-31 23:25] LABS: Troponin 5 2HR < 6.0 ng/L (0-10); Troponin 5 2HR Delta 0 ABS# (0-10)
--- NOTE | 2025-09-03 07:34 | DCPLANNER ---
messaged heart care for er f/u
== END 2025-08-31 23:06 | disposition home or self-care (01) ==
PROVIDERS: Emergency Provider Emergency Medicine; PCP Nurse Practitioner Family
DX: R00.1 Bradycardia, unspecified (principal); R07.9 Chest pain, unspecified
CPT/HCPCS: 36415; 71045; 80053; 83880; 84443; 84484; 85025; 93005; 94640; 96374; 96375; 99285; J2270; J2405; J7644

== ENCOUNTER 2025-09-22 17:30 | Emergency (ER) | payer MEDICAID, SELFPAY ==
[2025-05-29 07:46] VITALS: BP 137/101; BMI 40.5
[2025-09-22 17:34] VITALS: BP 145/79; PULSE 88; RESP 16; TEMP 36.3; O2SAT 98
--- OUTSIDE RECORDS SUMMARY | 2025-09-22 17:34 | XMS_ITS | Clinical Summary ---
Author Organization [facility] Address [address] [facility] Attn: Epic Prelude [place] [address] Care Team Providers Care Candy Roller Name Role Phone Charley Jarvis MD Primary Care Provider [phone]- [phone] Allergies Active Allergy Reactions Criticality Noted Date Comments Ketorolac Hives High 08/07/2010 Penicillins Unknown 02/21/2008 Silk Hives High 04/10/2020 Tramadol Headache Low 09/27/2015 Medications buprenorphine-na lOXone (SUBOXONE) 8-2 mg Tablet, Sublingual TAKE ONE TABLET BY MOUTH UNDER THE TONGUE THREE TIMES DAILY for SEVEN DAYS Active gabapentin (NEURONTIN) 300 mg capsule Take [...] mg TabletIndication s:Chronic tension-type headache, not intractable TAKE 1 TABLET(2 MG) BY MOUTH EVERY 8 HOURS NEEDED FOR SPASM 90 Tablet 2 5 Active zolpidem (AMBIEN) 10 mg tabletIndication s:Psychophysiolo gical insomnia Take 1 Tablet (10 mg) by mouth nightly as needed for Insomnia. 90 Tablet 1 5 Active zolpidem (AMBIEN) 10 mg tabletIndication s:Psychophysiolo gical insomnia Take 1 Tablet (10 mg) by mouth nightly as needed for Insomnia. 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
--- OUTSIDE RECORDS SUMMARY | 2025-09-22 17:34 | XMS_ITS | Encounter Summary ---
Author Organization [facility] Address [address] [place] [address] Care Team Providers Care Certified Orthoptist Name Role Phone Charley Jarvis MD Primary Care Provider [phone]- [phone] Reason for Visit * Reason Comments Information Encounter Details Date Type Department Care Team (Late st Contact Info) Description 04/05/2025 Telephone [facility] Medicine [address] [address] Charley Jarvis MD [address] [address] Information Social History Tobacco Use Types Packs/Day Years Used Date Smoking Tobacco: Never Smokeless Tobacco: Never Alcohol Use Standard Drinks/Week Comments No 0 (1 standard drink = 0.6 oz pur e alcohol) Comments No Sex and Gender Information Value Date Recorded Sex Assigned at Not on file 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 Topic: Established Patient Care >> Apr 05, 2025 3:15 PM Shavonne Rodas wrote: Is the patient established with a [facility] provider? Yes, select appropriate option in Discharge Facility SmartList Caller Name: Sarah Dooley Callback Number: [phone] (mobile) Call Notes: ER f/u, scheduled Wednesday [...] documented as of this encounter Care Teams Certified Orthoptist Relationship Specialty Start Date End Date Charley Jarvis MD [address] [place] [phone] PCP - General Family Practice 01/16/25 documented as of this encounter
--- NOTE | 2025-09-22 17:41 | XRR_ITS ---
PROCEDURE INFORMATION: Exam: XR Chest Exam date and time: 09/22/2025 5:47 PM Age: 40 years old Clinical indication: Prior surgery; Surgery date: 6+ months; Surgery type: Gallbladder; C/O productive cough with brown sputum and lower abd pain/ bilat flanks with nausea today. PT states that she passed kidney stones last night. Urinary frequency. TECHNIQUE: Imaging protocol: Radiologic exam of the chest. Views: 1 view. COMPARISON: CR (CHEST, ) 08/31/2025 8:35 PM FINDINGS: Lungs: Unremarkable. No consolidation. Pleural spaces: Unremarkable. No pleural effusion. No pneumothorax. Heart/Mediastinum: Unremarkable. No cardiomegaly. Bones/joints: Unremarkable. XR/XR chest 1V portable [id number] IMPRESSION: No acute findings.
[2025-09-22 17:55] LABS: Glucose Urine UA Negative (Normal); Nitrate Urine Positive (Negative); Specific Gravity, Urine 1.018 (1.005-1.030)
[2025-09-22 18:00] LABS: Add Urine Microscopic? YES; Universal Test for UA Present (0)
[2025-09-22 18:04] LABS: HCG, Serum Qual Negative (Negative)
[2025-09-22 18:14] VITALS: PULSE 65; O2SAT 94
--- NOTE | 2025-09-22 18:22 | CTR_ITS ---
PROCEDURE INFORMATION: Exam: CT Abdomen And Pelvis Without Contrast Exam date and time: 09/22/2025 6:31 PM Age: 40 years old Clinical indication: Abdominal pain; Right; Prior surgery; Surgery date: 6+ months; Surgery type: Gb; RT flank pain with hematuria; Additional info: R flank pain hematuria TECHNIQUE: Imaging protocol: Computed tomography of the abdomen and pelvis without contrast. Axial, coronal and sagittal reformatted images were created and reviewed. Radiation optimization: All CT scans at this facility use at least one of these dose optimization techniques: automated exposure control; mA and/or kV adjustment per patient size (includes targeted exams where dose is matched to clinical indication); or iterative reconstruction. COMPARISON: CT abdomen pelvis w con* [id number] 07/24/2025 8:34 PM RADIATION DOSE METRICS: Total DLP (mGy-cm): 970.04 FINDINGS: Liver: Mild hepatomegaly. Gallbladder and biliary ducts: Status post cholecystectomy. No biliary ductal dilatation. Pancreas: Unremarkable. Spleen: Unremarkable. Adrenal glands: Normal. No mass. Kidneys and ureters: Nonobstructing left renal calculus. No hydronephrosis. Stomach and bowel: Scattered colonic diverticula without evidence of diverticulitis. No obstruction. No bowel wall thickening. No pneumatosis. Appendix: Appendix not identified with certainty but no right lower quadrant inflammatory change to suggest acute appendicitis. Intraperitoneal space: No free fluid. No organized fluid collection. No free air. Vasculature: Unremarkable. No aneurysm. Lymph nodes: No pathologically enlarged lymph nodes. Urinary bladder: Unremarkable as visualized. Reproductive: Unremarkable. Bones/joints: No acute osseous abnormality. Mild degenerative changes. Soft tissues: Small, fat containing umbilical hernia. CT/CT kidney stone [id number] IMPRESSION: 1. Limited noncontrast examination without CT evidence of acute intra-abdominal or pelvic pathology. 2. Additional findings, as above.
[2025-09-22] MEDS: ondansetron 2 mg/ML SDV 2 mL 4 MG IVP (18:28)
[2025-09-22 18:35] LABS: Hematocrit 39.9 % (36-47); Hemoglobin 13.50 g/dL (11.27-16.99); Mean Corpuscular HGB Conc 33.8 g/dL (30-55); Mean Corpuscular Hemoglobin 29.8 pg (27-33); Mean Corpuscular Volume 88.1 fl (85-98); Nucleated Red Blood Cells % 0 %; Platelet Count 262 10^3/cmm (157-399); Red Blood Count 4.53 10^6/uL (3.85-5.65); White Blood Count 8.25 10^3/uL (3.29-11.43)
[2025-09-22 18:42] VITALS: BP 117/73; PULSE 59; RESP 17; O2SAT 95
--- NOTE | 2025-09-22 18:48 | W.ED.FEMALGU ---
HPI - Female Genitourinary General: Chief complaint: Upper Respiratory Infection Stated complaint: sediment/blood in urine Time Seen by Provider: 09/22/25 17:41 History of Present Illness: Patient is a 40-year-old female presenting with bilateral flank pain, worse on the right side. She reports a history of kidney stones, having had them twice before, with the most recent episode requiring surgical intervention. Patient states she has been peeing out kidney stones and has noticed blood in her urine. She reports that the pain seems to worsen at night. Additionally, she describes respiratory symptoms including coughing up brown, thick jelly-like substance and feeling that she cannot breathe as well as she used to. Patient reports recurrent pneumonia and infections. She expresses frustration with chronic fatigue, stating she is tired of being tired. When asked about fever, patient states she has felt feverish but does not have a thermometer at home to confirm. Related Data Home Medications ?Medication ?Instructions ?Recorded ?Confirmed gabapentin 300 mg capsule 300 mg PO TID 08/16/25 08/18/25 tizanidine 2 mg capsule 2 mg PO TID PRN 08/16/25 08/18/25 zolpidem 7.5 mg capsule 7.5 mg PO DAILY 08/18/25 08/18/25 Previous Rx's ?Medication ?Instructions ?Recorded losartan 25 mg tablet 25 mg PO DAILY #90 tabs 03/02/24 albuterol sulfate 90 mcg/actuation 2 inh inhalation Q4H PRN shortness 01/08/25 aerosol inhaler of breath or wheezing #6.7 grams fluticasone propionate 110 1 inh inhalation BID #12 grams 03/20/25 mcg/actuation HFA aerosol inhaler cyclobenzaprine 10 mg tablet 10 mg PO Q8H PRN muscle spasm #20 05/10/25 tabs minocycline 100 mg tablet 100 mg PO BID #14 tabs 08/18/25 buprenorphine 8 mg-naloxone 2 mg 1 tab sublingual TID #90 tabs 08/22/25 sublingual tablet albuterol sulfate 90 mcg/actuation 1 inh inhalation Q6H PRN shortness 09/22/25 aerosol inhaler of breath or wheezing #6.7 grams azithromycin 250 mg tablet See Rx Instructions PO .COMPLEX #6 09/22/25 tabs Allergies Allergy/AdvReac Type Severity Reaction Status Date / Time ketorolac (From Toradol) Allergy ADR-Seizure Verified 09/22/25 17:39 Penicillins Allergy ALGY-Rash Verified 09/22/25 17:39 PFSH ED PFSH: Medical History Cyclothymic disorder Cannabis dependence, uncomplicated Methamphetamine use disorder, moderate, in sustained remission, dependence Chronic post-traumatic stress disorder Generalized anxiety disorder Psychiatric care Family History Other Bone cancer Breast cancer CAD (coronary artery disease) Diabetes Heart disease Hypertension Leukemia Social History Smoking and tobacco/nicotine status: never used tobacco/nicotine Alcohol intake: never Substance/Drug Use: current Substance/Drug use frequency: daily Adopted: No Caregiver/support person: No Lives independently: Yes Household members: significant other and children Housing: Manufactured/Mobile home Marital status: Number of children: 6 Number of grandchildren: 1 Highest education level completed: Some College, No Degree service: No Current occupational status: other Current occupation: working on disability Pets and animals: No Leisure activites: music, games and other Leisure activities details: Watch TV Sexually active: Yes Do you think of yourself as: Straight/Heterosexual Current gender identity: Female Fatoumata/Sikhism: Judaism Special fatoumata needs: No Agree to transfusion: Yes Female Reproductive History: Para: 6 Spontaneous abortions: No Physical Exam Const: COMMON NORMALS: no acute distress GENERAL APPEARANCE: cooperative; not ill appearing and not frail appearing HENMT: COMMON NORMALS: normocephalic, atraumatic and Normal external nose present HEAD & SCALP: normocephalic and atraumatic FACE & SINUS: normal facial exam and face symmetric NOSE: Normal external nose present Eye: COMMON NORMALS: Equal, round and reactive pupils present and EOMs intact bilaterally PUPIL: Yes Equal, round and reactive pupils present Neck/C-Spine: GENERAL: Yes trachea midline Chest: CHEST: Yes Symmetrical chest wall rise Resp: COMMON NORMALS: normal respiratory effort, No retractions, No use of accessory muscles and clear to auscultation bilaterally AUSCULTATION: clear to auscultation bilaterally Cardio: COMMON NORMALS: regular rate and regular rhythm RATE: regular rate RHYTHM: regular rhythm GI: COMMON NORMALS: Normal to inspection, nondistended, normoactive bowel sounds present : BLADDER/KIDNEY EXAM: Yes CVA tenderness on the right Back/Pelvis: GENERAL BACK: Yes CVA tenderness Extremity: COMMON NORMALS: no pedal edema Neuro: TA COMA SCALE: document GCS findings Ta coma scale eye opening: Spontaneous Grandin coma scale verbal response: Orientated Ta coma scale motor response: Obey commands Grandin coma scale total score: 15 SENSORY EXAM: Yes extremities (intact) Psych: COMMON NORMALS: speech normal SPEECH: Yes normal speech Skin: COMMON NORMALS: no rashes or lesions noted GENERAL SKIN EXAM: no rashes or lesions noted Course Vital Signs: Vital signs: Vital Signs Temperature 97.4 F L 09/22/25 17:34 Pulse Rate 62 09/22/25 19:17 Respiratory Rate 19 H 09/22/25 19:17 Blood Pressure 117/73 09/22/25 18:42 Pulse Oximetry 95 09/22/25 19:17 Oxygen Delivery Me thod Room Air 09/22/25 18:14 MDM - Female Medical Decision Making 40-year-old female presenting with bilateral right greater than left flank pain, cough, sputum production. Vitals are normal. CBC is normal. BMP is normal. There is hematuria present. No evidence of infection. hCG is negative. CT shows no stone or obstruction. No other acute findings. As for respiratory symptoms, will cover with antibiotics for ongoing cough and sputum production. She is stable for discharge. Outpatient follow-up. Lab Data 09/22/25 17:48 09/22/25 17:48 Radiology Impressions Chest X-Ray 09/22/25 17:41 IMPRESSION: No acute findings. Abdomen/Pelvis CT 09/22/25 18:22 IMPRESSION: 1. Limited noncontrast examination without CT evidence of acute intra-abdominal or pelvic pathology. 2. Additional findings, as above. Laboratory Results WBC 8.25 10^3/uL (3.29-11.43) 09/22/25 17:48 RBC 4.53 10^6/uL (3.85-5.65) 09/22/25 17:48 Hgb 13.50 g/dL (11.27-16.99) 09/22/25 17:48 Hct 39.9 % (36-47) 09/22/25 17:48 MCV 88.1 fl (85-98) 09/22/25 17:48 MCH 29.8 pg (27-33) 09/22/25 17:48 MCHC 33.8 g/dL (30-55) 09/22/25 17:48 RDW 11.9 % (12.1-15.1) L 09/22/25 17:48 Plt Count 262 10^3/cmm (157-399) 09/22/25 17:48 MPV 9.9 fL (7.4-10.4) 09/22/25 17:48 Neut % (Auto) 55.4 % 09/22/25 17:48 Lymph % (Auto) 36.7 % 09/22/25 17:48 King % (Auto) 4.7 % 09/22/25 17:48 Eos % (Auto) 2.4 % 09/22/25 17:48 Baso % (Auto) 0.6 % 09/22/25 17:48 Neut # (Auto) 4.56 10^3/uL (1.8-7.7) 09/22/25 17:48 Lymph # (Auto) 3.0 10^3/uL (0.8-4.8) 09/22/25 17:48 King # (Auto) 0.4 10^3/uL (0.2-0.9) 09/22/25 17:48 Eos # (Auto) 0.2 10^3/uL (0.0-0.8) 09/22/25 17:48 Baso # (Auto) 0.1 10^3/uL (0.0-0.1) 09/22/25 17:48 Nucleated RBC % (auto) 0 % 09/22/25 17:48 Nucleated RBCs # 0.0 /100WBC 09/22/25 17:48 Sodium 141 mmol/L (136-145) 09/22/25 17:48 Potassium 3.7 mmol/L (3.5-5.1) 09/22/25 17:48 Chloride 104 mmol/L (98-107) 09/22/25 17:48 Carbon Dioxide 27 mmol/L (22-29) 09/22/25 17:48 Anion Gap 13.7 (5-19) 09/22/25 17:48 BUN 7 mg/dL (6-20) 09/22/25 17:48 Creatinine 0.6 mg/dL (0.5-0.9) 09/22/25 17:48 GFR Calculation 111.3 mL/min (90-130) 09/22/25 17:48 Glucose 113 mg/dL (65-115) 09/22/25 17:48 Calculated Osmolality 291 mOsm/kg (285-295) 09/22/25 17:48 Calcium 9.4 mg/dL (8.5-10.5) 09/22/25 17:48 Total Bilirubin 0.3 mg/dL (0.15-1.2) 09/22/25 17:48 AST 21 U/L (0-32) 09/22/25 17:48 ALT 22 U/L (0-33) 09/22/25 17:48 Alkaline Phosphatase 78 U/L (35-105) 09/22/25 17:48 Total Protein 7.3 g/dL (6.6-8.7) 09/22/25 17:48 Albumin 4.4 g/dL (3.5-5.2) 09/22/25 17:48 Globulin 2.9 g/dL (1.3-4.6) 09/22/25 17:48 HCG, Qual Negative (Negative) 09/22/25 12:48 Urine Color Yellow (Yellow) 09/22/25 17:48 Urine Appearance Clear (CLEAR) 09/22/25 17:48 Urine pH 6.0 (5-7) 09/22/25 17:48 Ur Specific Cascade 1.018 (1.005-1.030) 09/22/25 17:48 Urine Protein Negative (Negative) 09/22/25 17:48 Urine Glucose (UA) Negative (Normal) 09/22/25 17:48 Urine Ketones Negative (Negative) 09/22/25 17:48 Urine Blood 1+ (Negative) A 09/22/25 17:48 Urine Nitrate Positive (Negative) A 09/22/25 17:48 Urine Bilirubin Negative (Negative) 09/22/25 17:48 Urine Urobilinogen 0.2 mg/dL (Negative) 09/22/25 17:48 Ur Leukocyte Esterase Negative (Negative) 09/22/25 17:48 Urine RBC 11-20 /hpf (0-2) H 09/22/25 17:48 Urine WBC 0-5 /hpf (0-5) 09/22/25 17:48 Ur Squamous Epith Cells 0-5 /hpf (0-5) 09/22/25 17:48 Calcium Oxalate Crystal 5-10 /hpf H 09/22/25 17:48 Amorphous Sediment Not Reportable 09/22/25 17:48 Urine Bacteria 4+ /hpf (NONE) H 09/22/25 17:48 Hyaline Casts 0-4 /lpf H 09/22/25 17:48 Urine Yeast 1+ /hpf H 09/22/25 17:48 All radiology interpretation(s) finalized by discharge Discharge Plan Discharge Patient Disposition: Home Clinical Impression: SOB (shortness of breath), Bronchitis Condition: Stable Prescriptions: New azithromycin 250 mg tablet See Rx Instructions .ROUTE .COMPLEX Qty: 6 0RF Rx Instructions: For 250 mg dose pack: take 500 mg today (day 1), then 250 mg for 4 days (days 2-5) Continued albuterol sulfate 90 mcg/actuation HFA aerosol inhaler 1 inh inhalation Q6H PRN (Reason: shortness of breath or wheezing) Qty: 6.7 0RF No Action zolpidem 7.5 mg capsule 7.5 mg PO DAILY minocycline 100 mg tablet 100 mg PO BID Qty: 14 0RF losartan 25 mg tablet 25 mg PO DAILY Qty: 90 3RF gabapentin 300 mg capsule 300 mg PO TID tizanidine 2 mg capsule 2 mg PO TID PRN buprenorphine-naloxone 8-2 mg tablet, sublingual 1 tab SUBLINGUAL TID Qty: 90 3RF Rx Instructions: One tablet three times per day albuterol sulfate 90 mcg/actuation HFA aerosol inhaler 2 inh inhalation Q4H PRN (Reason: shortness of breath or wheezing) Qty: 6.7 0RF Rx Instructions: Please provide patient with a spacer fluticasone propionate 110 mcg/actuation HFA aerosol inhaler 1 inh inhalation BID Qty: 12 0RF cyclobenzaprine 10 mg tablet 10 mg PO Q8H PRN (Reason: muscle spasm) Qty: 20 0RF Discharge Orders: Discharge ED (Routine); Ordered 09/22/25 Ordered By: Pj Mcgarry Referrals: Charley Jarvis MD [Primary Care Provider, Family Practice] - 4-7 days Patient Instructions: Acute Bronchitis (ED), Opioid Safety, Pain Management, Patient Portal & Olga Instructions Activity Restrictions/Additional Instructions: Return for worsening shortness of breath, fever despite antibiotics, other concerning symptoms. Call your doctor next week for follow-up appointment. Print Language: Indonesian Coding Level of Care Code ED Chief Analytics Officer for Brittnee Bowman
[2025-09-22 19:08] LABS: Alanine Aminotransferase 22 U/L (0-33); Albumin Level 4.4 g/dL (3.5-5.2); Alkaline Phosphatase 78 U/L (35-105); Anion Gap 13.7 (5-19); Aspartate Amino Transferase 21 U/L (0-32); Blood Urea Nitrogen 7 mg/dL (6-20); Calcium 9.4 mg/dL (8.5-10.5); Carbon Dioxide 27 mmol/L (22-29); Chloride 104 mmol/L (98-107); Globulin 2.9 g/dL (1.3-4.6); Glucose 113 mg/dL (65-115); Osmolality Calculated 291 mOsm/kg (285-295); Potassium 3.7 mmol/L (3.5-5.1); Sodium 141 mmol/L (136-145); Total Protein 7.3 g/dL (6.6-8.7)
[2025-09-22 19:17] VITALS: PULSE 62; RESP 19; O2SAT 95
== END 2025-09-22 19:52 | disposition home or self-care (01) ==
PROVIDERS: Emergency Medicine; Emergency Provider Emergency Medicine; PCP Family Medicine
DX: R06.02 Shortness of breath (principal); J40 Bronchitis, not specified as acute or chronic
CPT/HCPCS: 36415; 71045; 74176; 80053; 81001; 84703; 85025; 87077; 87086; 87186; 96374; 99285; J2405

== ENCOUNTER 2025-09-27 18:34 | Emergency (ER) | payer MEDICAID, SELFPAY ==
[2025-05-29 07:46] VITALS: BP 137/101; BMI 40.5
[2025-09-27 18:42] VITALS: BP 135/85; PULSE 94; RESP 16; TEMP 36.8; O2SAT 97; BMI 33.3
--- NOTE | 2025-09-27 19:04 | W.ED.RECABL ---
HPI - Recheck/Abnormal Lab/Rx General: Chief Complaint: Recheck/Abnormal Lab/Rx Stated Complaint: Labs came back urine, said to come back in Time Seen by Provider: 09/27/25 18:38 History of Present Illness: 40-year-old female presenting to the emergency department with positive urine culture from previous ED visit showing drug-resistant E. coli sensitive to fluoroquinolones, patient was discharged on azithromycin at that visit and at that time had complaints of bilateral flank pain and hematuria with associated respiratory symptoms, further respiratory symptoms specifically she reports coughing brown sputum which has been ongoing for months, she is pending an appointment with her sandwich artist and is about to establish care with a food and beverage checker with appointment confirmation pending, she currently does not have a PCP and is in the process of obtaining one. She also endorses intermittent hot flashes which have been going on for some time. No fevers, no chest pain, she did have a CT scan done on previous visit of the abdomen which did not show kidney stones, patient does report a history of kidney stones in the past. Related Data Home Medications ?Medication ?Instructions ?Recorded ?Confirmed gabapentin 300 mg capsule 300 mg PO TID 08/16/25 08/18/25 tizanidine 2 mg capsule 2 mg PO TID PRN 08/16/25 08/18/25 zolpidem 7.5 mg capsule 7.5 mg PO DAILY 08/18/25 08/18/25 Previous Rx's ?Medication ?Instructions ?Recorded losartan 25 mg tablet 25 mg PO DAILY #90 tabs 03/02/24 albuterol sulfate 90 mcg/actuation 2 inh inhalation Q4H PRN shortness 01/08/25 aerosol inhaler of breath or wheezing #6.7 grams fluticasone propionate 110 1 inh inhalation BID #12 grams 03/20/25 mcg/actuation HFA aerosol inhaler cyclobenzaprine 10 mg tablet 10 mg PO Q8H PRN muscle spasm #20 05/10/25 tabs minocycline 100 mg tablet 100 mg PO BID #14 tabs 08/18/25 buprenorphine 8 mg-naloxone 2 mg 1 tab sublingual TID #90 tabs 08/22/25 sublingual tablet albuterol sulfate 90 mcg/actuation 1 inh inhalation Q6H PRN shortness 09/22/25 aerosol inhaler of breath or wheezing #6.7 grams azithromycin 250 mg tablet See Rx Instructions PO .COMPLEX #6 09/22/25 tabs levofloxacin 750 mg tablet 750 mg PO DAILY 7 days #7 tabs 09/27/25 Allergies Allergy/AdvReac Type Severity Reaction Status Date / Time ketorolac (From Toradol) Allergy ADR-Seizure Verified 09/27/25 18:47 Penicillins Allergy ALGY-Rash Verified 09/27/25 18:47 PFSH ED PFSH: Medical History (Updated 09/27/25 @ 19:07 by Tyler Negron MD) Cyclothymic disorder Cannabis dependence, uncomplicated Methamphetamine use disorder, moderate, in sustained remission, dependence Chronic post-traumatic stress disorder Generalized anxiety disorder Psychiatric care Family History Other Bone cancer Breast cancer CAD (coronary artery disease) Diabetes Heart disease Hypertension Leukemia Social History Smoking and tobacco/nicotine status: never used tobacco/nicotine Alcohol intake: never Substance/Drug Use: current Substance/Drug use frequency: daily Adopted: No Caregiver/support person: No Lives independently: Yes Household members: significant other and children Housing: Manufactured/Mobile home Marital status: Number of children: 6 Number of grandchildren: 1 Highest education level completed: Some College, No Degree service: No Current occupational status: other Current occupation: working on disability Pets and animals: No Leisure activites: music, games and other Leisure activities details: Watch TV Sexually active: Yes Do you think of yourself as: Straight/Heterosexual Current gender identity: Female Fatoumata/Hinduism: Anglican Special fatoumata needs: No Agree to transfusion: Yes Female Reproductive History: Para: 6 Spontaneous abortions: No Physical Exam Narrative: EXAM NARRATIVE: Gen: A&Ox4, no acute distress, nontoxic appearing HEENT: Normocephalic, atraumatic, no scleral icterus, external ears normal, moist mucous membranes Neck: Supple, full range of motion, no observable masses Lungs: No Respiratory distress, Lungs clear to auscultation bilaterally no rales, rhonchi, wheezing CV: Regular rate and rhythm, no murmur, no pitting edema to lower extremities bilaterally Abdomen: Soft, nondistended, nontender to palpation MSK: No joint swelling, FROM all 4 extremities Skin: No rashes, petechiae, lesions. Normal color per patient. Neuro: Alert and oriented, no slurred speech, sensation and strength grossly intact all 4 extremities Psych: Appropriate for situation. Course Vital Signs: Vital signs: Vital Signs Temperature 98.3 F 09/27/25 18:42 Pulse Rate 94 09/27/25 18:42 Respiratory Rate 16 09/27/25 18:42 Blood Pressure 135/85 09/27/25 18:42 Pulse Oximetry 97 09/27/25 18:42 Oxygen Delivery Me thod Room Air 09/27/25 18:42 MDM - Recheck/Abnormal Lab/Rx Medical Decision Making 40-year-old female with a past medical history significant for hypertension, PTSD, marijuana use, non-smoker, presenting emergency department with positive urine culture based on previous ED visit for bilateral flank pain and hematuria with associated chronic respiratory symptoms and productive cough, started on azithromycin during that visit, urinalysis at that visit showing grossly positive UTI and CT scan showing no obstructing kidney stone, culture subsequently grew E. coli with some resistance, however it does appear to be sensitive to sukhi quinolones, I discussed risk benefits of fluoroquinolone therapy with the patient including both ciprofloxacin and levofloxacin as well as the risks of fluoroquinolone therapy including tendon rupture and cardiac issues, at this time she does wish to proceed with fluoroquinolone therapy initiation, will start Levaquin for respiratory and urine coverage, recommend establishing care with a PCP and following up with pulmonology for chronic cough. No radiology studies performed this visit Discharge Plan Discharge Patient Disposition: Home Clinical Impression: UTI (urinary tract infection) Condition: Stable Prescriptions: New levofloxacin 750 mg tablet 750 mg PO DAILY 7 Days Qty: 7 0RF No Action zolpidem 7.5 mg capsule 7.5 mg PO DAILY minocycline 100 mg tablet 100 mg PO BID Qty: 14 0RF losartan 25 mg tablet 25 mg PO DAILY Qty: 90 3RF gabapentin 300 mg capsule 300 mg PO TID tizanidine 2 mg capsule 2 mg PO TID PRN buprenorphine-naloxone 8-2 mg tablet, sublingual 1 tab SUBLINGUAL TID Qty: 90 3RF Rx Instructions: One tablet three times per day azithromycin 250 mg tablet See Rx Instructions .ROUTE .COMPLEX Qty: 6 0RF Rx Instructions: For 250 mg dose pack: take 500 mg today (day 1), then 250 mg for 4 days (days 2-5) albuterol sulfate 90 mcg/actuation HFA aerosol inhaler 1 inh inhalation Q6H PRN (Reason: shortness of breath or wheezing) Qty: 6.7 0RF albuterol sulfate 90 mcg/actuation HFA aerosol inhaler 2 inh inhalation Q4H PRN (Reason: shortness of breath or wheezing) Qty: 6.7 0RF Rx Instructions: Please provide patient with a spacer fluticasone propionate 110 mcg/actuation HFA aerosol inhaler 1 inh inhalation BID Qty: 12 0RF cyclobenzaprine 10 mg tablet 10 mg PO Q8H PRN (Reason: muscle spasm) Qty: 20 0RF Discharge Orders: Discharge ED (Routine); Ordered 09/27/25 Ordered By: Tyler Negron Referrals: Charley Jarvis MD [Primary Care Provider, [facility]] Patient Instructions: Urinary Tract Infection in Women (DC), Patient Portal & Olga Instructions Activity Restrictions/Additional Instructions: You were seen in the emergency department for a urine culture on your previous visit growing a bacteria that may not be effectively treated by the antibiotic you were prescribed. I have changed your antibiotic to levofloxacin which is an effective antibiotic for both urinary and pulmonary infections, it does carry a mildly increased risk of tendon rupture/muscle injury so I recommend you abstain from strenuous exercise until 1 week after you complete therapy, follow-up with a PCP for further evaluation and follow-up with the food and beverage checker that you are currently about to see for evaluation of your chronic cough Print Language: Belgian Coding Level of Care Code ED Second Steward for Brittnee Bowman
--- OUTSIDE RECORDS SUMMARY | 2025-09-27 20:19 | XMS_ITS | Clinical Summary ---
Author Organization [facility] Address [address] [facility] Attn: Epic Prelude [place]T [place] [id number] Care Team Providers Care Barrelhead Inspector Name Role Phone Charley Jarvis MD Primary Care Provider [phone]- [phone] Allergies Active Allergy Reactions Criticality Noted Date [...] for Insomnia. 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
== END 2025-09-27 19:20 | disposition home or self-care (01) ==
PROVIDERS: Emergency Provider Student in an Organized Health Care Education/Training Program; PCP Family Medicine
DX: N39.0 Urinary tract infection, site not specified (principal); B96.20 Unspecified Escherichia coli [E. coli] as the cause of diseases classified elsewhere
CPT/HCPCS: 99283; J9999

== ENCOUNTER 2025-09-29 18:06 | Emergency (ER) | payer MEDICAID, SELFPAY ==
[2025-05-29 07:46] VITALS: BP 137/101; BMI 40.5
[2025-09-29 18:09] VITALS: BP 115/75; PULSE 77; RESP 17; TEMP 36.7; O2SAT 97; BMI 33.3
--- OUTSIDE RECORDS SUMMARY | 2025-09-29 18:12 | XMS_ITS | Clinical Summary ---
Author Organization [facility] Address [address] [facility] Attn: Epic Prelude ADT [place] C[place] [address] Care Team Providers Care Location And Measurement Technician Name Role Phone Charley Jarvis MD Primary Care Provider [phone]- [phone] Allergies Active Allergy Reactions Criticality Noted Date [...] Date Type Department Care Team Description 08/27/[address] [phone] Charley Jarvis MD Psychophysiological insomnia 08/14/2025 External Device Data [facility] ABSTRACTION Provider, Abstract 08/10/[address] [phone] Charley Jarvis MD Chronic tension-type headache, not [...] on file 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
--- NOTE | 2025-09-29 18:32 | W.ED.ALLEREA ---
HPI - Allergic Reaction General: Chief complaint: Allergic Reaction Stated complaint: ecoli+ dizzy, weak n/v just worse Time Seen by Provider: 09/29/25 18:19 History of Present Illness: HPI narrative: Patient initially presented on 09/27 with complaints of dysuria. She was diagnosed with UTI, and prescribed levofloxacin. Patient presents back to the emergency room due to feeling of allergic reaction. She has itching to the anterior distal leg, that started the last few days, however major complaint is after starting levofloxacin for UTI, she had GI upset. Nausea, vomiting. She feels like she is not tolerating her antibiotic. She is unable to eat due to the fact she is having nausea. The nausea was worse today. The itching has been ongoing just to her distal lower left leg. No palpitations. No shortness of breath. Related Data Home Medications ?Medication ?Instructions ?Recorded ?Confirmed gabapentin 300 mg capsule 300 mg PO TID 08/16/25 08/18/25 tizanidine 2 mg capsule 2 mg PO TID PRN 08/16/25 08/18/25 zolpidem 7.5 mg capsule 7.5 mg PO DAILY 08/18/25 08/18/25 Previous Rx's ?Medication ?Instructions ?Recorded losartan 25 mg tablet 25 mg PO DAILY #90 tabs 03/02/24 albuterol sulfate 90 mcg/actuation 2 inh inhalation Q4H PRN shortness 01/08/25 aerosol inhaler of breath or wheezing #6.7 grams fluticasone propionate 110 1 inh inhalation BID #12 grams 03/20/25 mcg/actuation HFA aerosol inhaler cyclobenzaprine 10 mg tablet 10 mg PO Q8H PRN muscle spasm #20 05/10/25 tabs minocycline 100 mg tablet 100 mg PO BID #14 tabs 08/18/25 buprenorphine 8 mg-naloxone 2 mg 1 tab sublingual TID #90 tabs 08/22/25 sublingual tablet albuterol sulfate 90 mcg/actuation 1 inh inhalation Q6H PRN shortness 09/22/25 aerosol inhaler of breath or wheezing #6.7 grams azithromycin 250 mg tablet See Rx Instructions PO .COMPLEX #6 09/22/25 tabs levofloxacin 750 mg tablet 750 mg PO DAILY 7 days #7 tabs 09/27/25 epinephrine 0.3 mg/0.3 mL 0.3 mg (0.3 mL) IM Q10M PRN 09/29/25 injection, auto-injector (EpiPen anaphylaxis #2 ea 2-Gabriele) famotidine 40 mg tablet (Pepcid) 40 mg PO BID #20 tabs 09/29/25 fosfomycin tromethamine 3 gram 3 g PO Q3D 3 doses #3 ea 09/29/25 oral packet nitrofurantoin macrocrystal 100 mg 100 mg PO BID 7 days #14 caps 09/29/25 capsule ondansetron 4 mg disintegrating 4 mg PO Q8H PRN nausea and 09/29/25 tablet vomiting 4 days #14 tabs Allergies Allergy/AdvReac Type Severity Reaction Status Date / Time levofloxacin Allergy Intermediate ADR-Anxiety Verified 09/29/25 18:17 ketorolac (From Toradol) Allergy ADR-Seizure Verified 09/29/25 18:17 Penicillins Allergy ALGY-Rash Verified 09/29/25 18:17 Review of Systems Musc: Denies: neck pain, back pain or extremity pain Skin/Breast: Reports: rash (Excoriations), pruritus, erythema, skin pain and skin tenderness PFSH ED PFSH: Medical History (Updated 09/29/25 @ 18:33 by BYRON Scott) Cyclothymic disorder Cannabis dependence, uncomplicated Methamphetamine use disorder, moderate, in sustained remission, dependence Chronic post-traumatic stress disorder Generalized anxiety disorder Psychiatric care Family History Other Bone cancer Breast cancer CAD (coronary artery disease) Diabetes Heart disease Hypertension Leukemia Social History Smoking and tobacco/nicotine status: never used tobacco/nicotine Alcohol intake: never Substance/Drug Use: current Substance/Drug use frequency: daily Adopted: No Caregiver/support person: No Lives independently: Yes Household members: significant other and children Housing: Manufactured/Mobile home Marital status: Number of children: 6 Number of grandchildren: 1 Highest education level completed: Some College, No Degree service: No Current occupational status: other Current occupation: working on disability Pets and animals: No Leisure activites: music, games and other Leisure activities details: Watch TV Sexually active: Yes Do you think of yourself as: Straight/Heterosexual Current gender identity: Female Fatoumata/Tenriism: Christian Special fatoumata needs: No Agree to transfusion: Yes Female Reproductive History: Para: 6 Spontaneous abortions: No Physical Exam Const: COMMON NORMALS: no acute distress GENERAL APPEARANCE: cooperative; not ill appearing and not frail appearing HENMT: COMMON NORMALS: normocephalic, atraumatic and Normal external nose present HEAD & SCALP: normocephalic and atraumatic FACE & SINUS: normal facial exam and face symmetric NOSE: Normal external nose present Eye: COMMON NORMALS: Equal, round and reactive pupils present and EOMs intact bilaterally PUPIL: Yes Equal, round and reactive pupils present Neck/C-Spine: GENERAL: Yes trachea midline Chest: CHEST: Yes Symmetrical chest wall rise Resp: COMMON NORMALS: normal respiratory effort, No retractions, No use of accessory muscles and clear to auscultation bilaterally AUSCULTATION: clear to auscultation bilaterally Cardio: COMMON NORMALS: regular rate and regular rhythm RATE: regular rate RHYTHM: regular rhythm GI: COMMON NORMALS: Normal to inspection, nondistended, normoactive bowel sounds present : BLADDER/KIDNEY EXAM: Yes CVA tenderness on the right Back/Pelvis: GENERAL BACK: Yes CVA tenderness Extremity: COMMON NORMALS: no pedal edema Psych: COMMON NORMALS: speech normal SPEECH: Yes normal speech Skin: COMMON NORMALS: no rashes or lesions noted NARRATIVE SKIN EXAM: Patient has an area to her left distal lower leg that has redness, and excoriations. This does not appear to be allergic in nature, however it is pruritic. SKIN IMAGES (FEMALE):  1. Redness with excoriations GENERAL SKIN EXAM: no rashes or lesions noted Course Vital Signs: Vital signs: Vital Signs Temperature 98.1 F 09/29/25 18:09 Pulse Rate 49 L 09/29/25 18:48 Respiratory Rate 16 09/29/25 18:48 Blood Pressure 118/80 09/29/25 18:48 Pulse Oximetry 95 09/29/25 18:48 Oxygen Delivery Me thod Room Air 09/29/25 18:09 MDM - Allergic Reaction Medical Decision Making Patient has a multidrug-resistant UTI. This is E. coli, that is sensitive to nitrofurantoin. I discussed my concerns with the patient, and best coverage is the Levaquin, however she appears to have association of side effects, with GI upset. The excoriations on her left leg, or less likely allergic. Patient will consider resuming her Levaquin with the use of Zofran. I have also sent over to the pharmacy EpiPen, Pepcid, nitrofurantoin, and fosfomycin. The reason why I added fosfomycin, as it is not a well used antibiotic that has less drug resistance to E. coli UTI, and will most likely work best. I am concerned with using single agent of nitrofurantoin alone, and I suspect patient will not tolerate levofloxacin. Discussed all of this with patient and explained to her the bio gram in layman's terms, and she states understanding. She wants to perform the concerns and continue with antibiotics as noted. She will however, be cautious if she does have reactions and stop these medications. Medical Records I reviewed the patient's medical records. Lab Data I reviewed the patient's lab results. No radiology studies performed this visit Discharge Plan Discharge Patient Disposition: Home Clinical Impression: Urticaria, E. coli urinary tract infection Condition: Stable Prescriptions: New fosfomycin tromethamine 3 gram packet 3 g PO Q3D Qty: 3 0RF nitrofurantoin macrocrystal 100 mg capsule 100 mg PO BID 7 Days Qty: 14 0RF Rx Instructions: must administer with a meal/food famotidine [Pepcid] 40 mg tablet 40 mg PO BID Qty: 20 0RF epinephrine [EpiPen 2-Gabriele] 0.3 mg/0.3 mL auto-injector 0.3 mg IM Q10M PRN (Reason: anaphylaxis) Qty: 2 0RF Rx Instructions: for 2 doses ondansetron 4 mg tablet,disintegrating 4 mg PO Q8H PRN (Reason: nausea and vomiting) 4 Days Qty: 14 0RF No Action zolpidem 7.5 mg capsule 7.5 mg PO DAILY minocycline 100 mg tablet 100 mg PO BID Qty: 14 0RF losartan 25 mg tablet 25 mg PO DAILY Qty: 90 3RF gabapentin 300 mg capsule 300 mg PO TID tizanidine 2 mg capsule 2 mg PO TID PRN buprenorphine-naloxone 8-2 mg tablet, sublingual 1 tab SUBLINGUAL TID Qty: 90 3RF Rx Instructions: One tablet three times per day azithromycin 250 mg tablet See Rx Instructions .ROUTE .COMPLEX Qty: 6 0RF Rx Instructions: For 250 mg dose pack: take 500 mg today (day 1), then 250 mg for 4 days (days 2-5) albuterol sulfate 90 mcg/actuation HFA aerosol inhaler 1 inh inhalation Q6H PRN (Reason: shortness of breath or wheezing) Qty: 6.7 0RF levofloxacin 750 mg tablet 750 mg PO DAILY 7 Days Qty: 7 0RF albuterol sulfate 90 mcg/actuation HFA aerosol inhaler 2 inh inhalation Q4H PRN (Reason: shortness of breath or wheezing) Qty: 6.7 0RF Rx Instructions: Please provide patient with a spacer fluticasone propionate 110 mcg/actuation HFA aerosol inhaler 1 inh inhalation BID Qty: 12 0RF cyclobenzaprine 10 mg tablet 10 mg PO Q8H PRN (Reason: muscle spasm) Qty: 20 0RF Discharge Orders: Discharge ED (Routine); Ordered 09/29/25 Ordered By: Sosa Jim Referrals: Charley Jarvis MD [Primary Care Provider, [facility]] Discharge Diet: Full LIquid Discharge Activity: Resume usual activity Patient Instructions: Food Allergy (ED), Allergies (ED), Adverse Drug Reaction (ED), Patient Portal & Olga Instructions Activity Restrictions/Additional Instructions: - Take your Zofran, eat, and attend to take your levofloxacin. If you continue to not tolerate this, or have the itching to your left leg, stop this medication. - At the pharmacy: 2 antibiotics: Fosfomycin, follow package instructions. This is typically taken 1 time with 1 packet. I sent 3 packets for every 3 days for total therapeutic antibiotic use. Nitrofurantoin: As we discussed, this is a issue since you have multidrug-resistant urine infection using a company laundry worker antibiotic such as this. Please continue to use as directed. You are going to want to take probiotic or use active culture yogurt to avoid infectious diarrhea Pepcid: Take this twice daily. This is a powerful antihistamine. EpiPen: This is in case you needed. You would use this for issues with your breathing at home. Then you would come to the emergency room. Obtain [id number]: Benadryl: I prefer liquid Benadryl because it helps with both nausea, and hard to throw up, as well as itching. Claritin, Zyrtec, Xyzal, Beth: Obtain 1 of these and take twice daily while on antibiotics. - Return to emergency room with any additional concerns or issues, fever greater than 100.4 ?F - Given the nature of your urinary tract infection being multidrug-resistant, make sure you follow-up with your primary care Thank you for choosing [facility] for your healthcare needs today. You have been screened and evaluated and felt safe for discharge. Health conditions do change or evolve sometimes and as such it is important that you follow up with your Primary Doctor to be re checked, 3-5 days is a general good time frame for follow up. You are always welcome to return to the ED for re assessment if your symptoms are worsening or you have new concerns Print Language: Sinhala Coding Level of Care Code ED Supervisor Whipped Topping for Brittnee Bowman
[2025-09-29] MEDS: diphenhydrAMINE 50 mg/mL SDV 1mL IM (18:43)
[2025-09-29 18:48] VITALS: BP 118/80; PULSE 49; RESP 16; O2SAT 95
== END 2025-09-29 19:09 | disposition home or self-care (01) ==
PROVIDERS: Emergency Provider Physician Assistant; PCP Family Medicine
DX: L50.9 Urticaria, unspecified (principal); N39.0 Urinary tract infection, site not specified; B96.20 Unspecified Escherichia coli [E. coli] as the cause of diseases classified elsewhere
CPT/HCPCS: 96372; 99284; J1200; J9999